=== PATIENT | female | born 1995 | race Caucasian/White ===

== ENCOUNTER 2016-12-14 22:30 | Emergency (ER) | payer OTHER ==
[2016-12-14 22:44] VITALS: BP 137/89; PULSE 81; RESP 20; TEMP 98.1
--- NOTE | 2016-12-14 23:01 | ED ---
ENT HPI - General Chief complaint: ENT Stated complaint: Right side face pain/with ear pain Time Seen by Provider: 12/14/16 22:51 Source: patient, RN notes reviewed Mode of arrival: ambulatory Limitations: no limitations - History of Present Illness Initial comments: 21-year-old female presents to the emergency department the chief complaint of right ear pain. Patient has been having right ear pain that radiates into the right sinus for the past 2 days. She states that she has had a lot of facial pressure as well. She has had some bloody noses associated with this as well. There is been no fever chills she denies any neck pain. She denies any cough cold runny nose. She states that she just continued to have discomfort so she thought that she should be evaluated.Patient denies any recent fever, chills, shortness of breath, chest pain, back pain, abdominal pain, nausea vomiting, numbness or tingling, dysuria or hematuria, constipation or diarrhea, headaches or visual changes, or any other current symptoms. - Related Data Home Medications Medication Instructions Recorded Confirmed Insulin Aspart (For Pump) [NovoLOG 1 dose SQ-PUMP CONTINUOUS MDD PTS 06/03/16 (For Pump)] MOM UNSURE OF BASAL RATE. Ibuprofen [Motrin] 800 mg PO DIRECTED PRN 07/19/16 12/14/16 Insulin Aspart (For Pump) [NovoLOG 1 dose SQ-PUMP PC-TID PRN 07/19/16 12/14/16 (For Pump)] Previous Rx's Medication Instructions Recorded Amoxicillin 500 mg PO Q8H #21 capsule 12/14/16 Allergies Allergy/AdvReac Type Severity Reaction Status Date / Time Fish Containing Products Allergy Unknown Rash/Hives, Verified 12/14/16 22:44 Swelling insulin glargine, human Allergy Unknown Burning Verified 12/14/16 22:44 recombin. a Sensation [From Lantus] Throughout sulfamethoxazole Allergy Unknown Swelling, Verified 12/14/16 22:44 [From Bactrim] Nausea & Vomiting trimethoprim [From Bactrim] Allergy Unknown Swelling, Verified 12/14/16 22:44 Nausea & Vomiting latex AdvReac Unknown PT HAS Verified 12/14/16 22:44 STRONG FAMILY HX OF LATEX ALLERGY. Review of Systems ROS Statement: Those systems with pertinent positive or pertinent negative responses have been documented in the HPI. ROS Other: All systems not noted in ROS Statement are negative. Past Medical History Past Medical History: Diabetes Mellitus, GERD/Reflux Additional Past Medical History / Comment(s): DIABETIC FOR 10 YEARS., INSULIN PUMP. , PAIN DUE TO GALL BLADDER., TOLD MOTHER THAT PATIENT SHOULD NOT TAKE TYLENOL ABOVE RECOMMENDED DOSE THAT IT COULD CAUSE LIVER DAMAGE-MOTHER STATES THAT SHE TOLD TREMAINE THIS. History of Any Multi-Drug Resistant Organisms: None Reported Past Surgical History: Cholecystectomy Additional Past Anesthesia/Blood Transfusion Reaction / Comment(s): PT HAS NEVER RECEIVED ANESTHESIA. Past Psychological History: No Psychological Hx Reported Smoking Status: Never smoker Past Alcohol Use History: Rare Past Drug Use History: Marijuana - Past Family History Mother Family Medical History: No Reported History General Exam - General Exam Comments Initial Comments: General exam: Alert, active, comfortable in no apparent distress Head: Normocephalic Eyes: Normal reaction of pupils, equal size, normal range of extraocular motion Ears: normal external ear canals, pink tympanic membranes with normal cone of light on the left, patient does appear to have erythematous right tympanic membrane. Nose: clear with pink turbinates Throat: no erythema or exudates with normal sized tonsils Neck: no masses, no nuchal rigidity Chest: no chest wall deformity Lungs: No respiratory distress CVS: Normal sinus rhythm Spine: no scoliosis or deformity Skin: no rashes Neurological: No focal deficits, tone is normal in all 4 extremities Limitations: no limitations Course Vital Signs 12/14/16 22:42 Temperature 98.1 F Pulse Rate 81 Respiratory 20 Rate Blood Pressure 137/89 O2 Sat by Pulse 98 Oximetry Medical Decision Making - Medical Decision Making 21-year-old female presents to the presenting otitis media. This we will start patient on antibiotics. We discussed follow-up with her doctor and return parameters stated he understood the plan. They will be discharged home. Disposition Clinical Impression: Right otitis media Disposition: HOME SELF-CARE Condition: Stable Instructions: Otitis Media (ED) Additional Instructions: Please use medication as discussed. Please follow up with family doctor if symptoms have not improved over the next two days. Please return to the emergency room if your symptoms increase or worsen or for any other concerns. Prescriptions: Amoxicillin 500 mg PO Q8H #21 capsule Referrals: Phong Cruz MD [Primary Care Provider] - 1-2 days Time of Disposition: 23:00
== END 2016-12-14 23:10 | disposition home or self-care (01) ==
LOC: EC 22:30
DX: H66.91 Otitis media, unspecified, right ear (principal); R51 Headache; E11.9 Type 2 diabetes mellitus without complications; Z79.4 Long term (current) use of insulin
CPT/HCPCS: 99282

== ENCOUNTER 2017-03-14 02:06 | Emergency (ER) | payer OTHER ==
[2017-03-14 02:11] VITALS: RESP 18
[2017-03-14] MEDS ORDERED: METOCLOPRAMIDE 5 MG/ML 2 ML VIAL IVP STA (02:28)
[2017-03-14] MEDS ORDERED: diphenhydrAMINE 50 MG/ML 1 ML VIAL IVP STA (02:28)
[2017-03-14] MEDS ORDERED: SODIUM CHLORIDE 0.9% 1,000 ML IV ONE (02:28)
[2017-03-14 03:08] LABS: ALT 24 U/L (9-52); AST 13 U/L (14-36); Alkaline Phosphatase 100 U/L (38-126); Anion Gap 11 mmol/L; Blood Urea Nitrogen 10 mg/dL (7-17); Calcium 9.5 mg/dL (8.4-10.2); Carbon Dioxide 28 mmol/L (22-30); Chloride 102 mmol/L (98-107); Glucose 103 mg/dL (74-99); Non-African American GFR(MDRD) >60 (>60 ml/min/1.73 sqM); Potassium 3.8 mmol/L (3.5-5.1); Sodium 141 mmol/L (137-145); Total Bilirubin 0.4 mg/dL (0.2-1.3); Total Protein 7.1 g/dL (6.3-8.2)
[2017-03-14 03:20] LABS: Basophils # (A) 0.1 k/uL (0-0.2); Basophils % (A) 1 %; CH 28.7; Eosinophils # (A) 0.2 k/uL (0-0.7); Eosinophils % (A) 2 %; HCT 38.1 % (34.0-46.0); HGB 12.8 gm/dL (11.4-16.0); Luc # (Auto) 0.13; Luc % (Auto) 1; Lymphocytes # (A) 3.1 k/uL (1.0-4.8); Lymphocytes % (A) 28 %; MCH 28.6 pg (25.0-35.0); MCHC 33.7 g/dL (31.0-37.0); Mean Platelet Volume 8.1; Monocytes # (A) 0.6 k/uL (0-1.0); Monocytes % (A) 5 %; Neutrophils # (A) 7.1 k/uL (1.3-7.7); Neutrophils % (A) 64 %; RBC 4.48 m/uL (3.80-5.40); RDW 13.5 % (11.5-15.5); WBC 11.1 k/uL (3.8-10.6)
--- NOTE | 2017-03-14 03:28 | ED ---
Headache HPI - General Source: RN notes reviewed Mode of arrival: ambulatory Limitations: no limitations <Beth Monique - Last Filed: 03/14/17 04:11> <Braydon Vera - Last Filed: 03/14/17 04:49> - General Chief Complaint: Headache Stated Complaint: Migraine X9 days Time Seen by Provider: 03/14/17 02:18 - History of Present Illness Initial Comments: Patient is a 21-year-old female presents to the emergency room for evaluation of headache. Patient states that a migraine headache for the past 9 days. Patient states she's been taking Excedrin and Advil with no relief of symptoms. Patient states she's having a 7 out of 10 headache in her frontal lobe area and behind her eyes. Patient denies changes in vision. Patient denies neck pain. Patient fevers or chills. Patient states she's been nauseous. Patient also states she's vomited once. Patient denies pierced ages. Patient denies limb weakness or unilateral weakness. Patient denies abdominal pain. Patient denies dizziness. Patient denies ear pain. Patient denies ringing in ears. (Beth Monique) - Related Data Home Medications Medication Instructions Recorded Confirmed Insulin Aspart (For Pump) [NovoLOG 1 dose SQ-PUMP CONTINUOUS MDD PTS 06/03/16 (For Pump)] MOM UNSURE OF BASAL RATE. Ibuprofen [Motrin] 800 mg PO DIRECTED PRN 07/19/16 12/14/16 Insulin Aspart (For Pump) [NovoLOG 1 dose SQ-PUMP PC-TID PRN 07/19/16 12/14/16 (For Pump)] Previous Rx's Medication Instructions Recorded Amoxicillin 500 mg PO Q8H #21 capsule 12/14/16 Ibuprofen [Motrin] 600 mg PO Q6HR PRN #20 tab 12/14/16 Acetaminophen-Codeine 300-30mg 2 each PO Q6H PRN #15 tablet 03/14/17 [Tylenol #3] Cephalexin [Keflex] 500 mg PO QID #40 cap 03/14/17 Allergies Allergy/AdvReac Type Severity Reaction Status Date / Time Fish Containing Products Allergy Unknown Rash/Hives, Verified 03/14/17 02:11 Swelling insulin glargine, human Allergy Unknown Burning Verified 03/14/17 02:11 recombin. a Sensation [From Lantus] Throughout sulfamethoxazole Allergy Unknown Swelling, Verified 03/14/17 02:11 [From Bactrim] Nausea & Vomiting trimethoprim [From Bactrim] Allergy Unknown Swelling, Verified 03/14/17 02:11 Nausea & Vomiting latex AdvReac Unknown PT HAS Verified 03/14/17 02:11 STRONG FAMILY HX OF LATEX ALLERGY. Review of Systems ROS Other: All systems not noted in ROS Statement are negative. <Beth Monique - Last Filed: 03/14/17 04:11> ROS Other: All systems not noted in ROS Statement are negative. <Braydon Vera - Last Filed: 03/14/17 04:49> ROS Statement: Those systems with pertinent positive or pertinent negative responses have been documented in the HPI. Past Medical History Past Medical History: Diabetes Mellitus, GERD/Reflux Additional Past Medical History / Comment(s): DIABETIC FOR 10 YEARS., INSULIN PUMP. , PAIN DUE TO GALL BLADDER., TOLD MOTHER THAT PATIENT SHOULD NOT TAKE TYLENOL ABOVE RECOMMENDED DOSE THAT IT COULD CAUSE LIVER DAMAGE-MOTHER STATES THAT SHE TOLD TERMAINE THIS. History of Any Multi-Drug Resistant Organisms: None Reported Past Surgical History: Cholecystectomy Additional Past Anesthesia/Blood Transfusion Reaction / Comment(s): PT HAS NEVER RECEIVED ANESTHESIA. Past Psychological History: No Psychological Hx Reported Smoking Status: Never smoker Past Alcohol Use History: None Reported, Rare Past Drug Use History: None Reported, Marijuana - Past Family History Mother Family Medical History: No Reported History <Beth Monique - Last Filed: 03/14/17 04:11> General Exam Limitations: no limitations General appearance: alert, in no apparent distress Head exam: Present: atraumatic, normocephalic, normal inspection Eye exam: Present: normal appearance, PERRL, EOMI Pupils: Present: normal accommodation ENT exam: Present: normal exam, mucous membranes moist, TM's normal bilaterally Neck exam: Present: normal inspection, full ROM. Absent: tenderness, lymphadenopathy Respiratory exam: Present: normal lung sounds bilaterally. Absent: respiratory distress Extremities exam: Present: normal inspection Back exam: Present: normal inspection Neurological exam: Present: alert, oriented X3, CN II-XII intact, normal gait Expanded Patient oriented to: Present: person, place, time Speech: Present: fluid speech Cranial nerves: EOM's Intact: Normal, Facial Sensation: Normal Sensory exam: Upper Extremity Light Touch: Normal, Lower Extremity Light Touch: Normal Motor strength exam: RUE: 5, LUE: 5, RLE: 5, LLE: 5 Psychiatric exam: Present: normal affect, normal mood Skin exam: Present: warm, dry, intact, normal color. Absent: rash <Beth Monique - Last Filed: 03/14/17 04:11> <Braydon Vera - Last Filed: 03/14/17 04:49> - General Exam Comments Initial Comments: sitting in exam room, no acute distress. (Beth Monique) Medical Decision Making - Lab Data Result diagrams: 03/14/17 02:45 03/14/17 02:45 <Beth Monique - Last Filed: 03/14/17 04:11> - Lab Data Result diagrams: 03/14/17 02:45 03/14/17 02:45 - Radiology Data Radiology results: report reviewed (Computed tomography scan of the brain shows no acute process. There is evidence of sinus disease and the ethmoid and frontal on the right side.) <Braydon Vera - Last Filed: 03/14/17 04:49> - Medical Decision Making patient is a 21-year-old female presents to the emergency room for evaluation of headache. Urinalysis suspicious for urinary tract infection. Patient is ALLERGIC to sulfa. Patient was started on Macrobid. Urine culture pending. CT brain pending. Case discussed and passed on to Dr. Vera at 4:15 AM. (Beth Monique) Patient reevaluated and resting comfortably in bed. Patient states headache is tolerable at this time. Patient states headache started over a week ago. Gradual onset. Patient states only normally occasional headaches. Patient is comfortable with discharge home. Antibiotics will be changed from Macrobid to Keflex secondary to sinus disease. (Braydon Vera) - Lab Data Lab Results 03/14/17 03/14/17 03/14/17 Range/Units 02:45 02:45 02:45 WBC 11.1 H (3.8-10.6) k/uL RBC 4.48 (3.80-5.40) m/uL Hgb 12.8 (11.4-16.0) gm/dL Hct 38.1 (34.0-46.0) % MCV 85.0 (80.0-100.0) fL MCH 28.6 (25.0-35.0) pg MCHC 33.7 (31.0-37.0) g/dL RDW 13.5 (11.5-15.5) % Plt Count 340 (150-450) k/uL Neutrophils % 64 % Lymphocytes % 28 % Monocytes % 5 % Eosinophils % 2 % Basophils % 1 % Neutrophils # 7.1 (1.3-7.7) k/uL Lymphocytes # 3.1 (1.0-4.8) k/uL Monocytes # 0.6 (0-1.0) k/uL Eosinophils # 0.2 (0-0.7) k/uL Basophils # 0.1 (0-0.2) k/uL Sodium 141 (137-145) mmol/L Potassium 3.8 (3.5-5.1) mmol/L Chloride 102 (98-107) mmol/L Carbon Dioxide 28 (22-30) mmol/L Anion Gap 11 mmol/L BUN 10 (7-17) mg/dL Creatinine 0.50 L (0.52-1.04) mg/dL Est GFR (MDRD) Af Amer >60 (>60 ml/min/1.73 sqM) Est GFR (MDRD) Non-Af >60 (>60 ml/min/1.73 sqM) Glucose 103 H (74-99) mg/dL Calcium 9.5 (8.4-10.2) mg/dL Total Bilirubin 0.4 (0.2-1.3) mg/dL AST 13 L (14-36) U/L ALT 24 (9-52) U/L Alkaline Phosphatase 100 (38-126) U/L Total Protein 7.1 (6.3-8.2) g/dL Albumin 3.9 (3.5-5.0) g/dL Urine Color Light Yellow Urine Appearance Cloudy H (Clear) Urine pH 5.5 (5.0-8.0) Ur Specific [place] 1.022 (1.001-1.035) Urine Protein Trace H (Negative) Urine Glucose (UA) 4+ H (Negative) Urine Ketones Negative (Negative) Urine Blood Moderate H (Negative) Urine Nitrite Positive H (Negative) Urine Bilirubin Negative (Negative) Urine Urobilinogen <2.0 (<2.0) mg/dL Ur Leukocyte Esterase Large H (Negative) Urine RBC 14 H (0-5) /hpf Urine WBC 74 H (0-5) /hpf Urine WBC Clumps Few H (None) /hpf Ur Squamous Epith Cells 7 H (0-4) /hpf Urine Bacteria Many H (None) /hpf Urine Mucus Rare H (None) /hpf Urine HCG, Qual (Not Detectd) 03/14/17 Range/Units 02:45 WBC (3.8-10.6) k/uL RBC (3.80-5.40) m/uL Hgb (11.4-16.0) gm/dL Hct (34.0-46.0) % MCV (80.0-100.0) fL MCH (25.0-35.0) pg MCHC (31.0-37.0) g/dL RDW (11.5-15.5) % Plt Count (150-450) k/uL Neutrophils % % Lymphocytes % % Monocytes % % Eosinophils % % Basophils % % Neutrophils # (1.3-7.7) k/uL Lymphocytes # (1.0-4.8) k/uL Monocytes # (0-1.0) k/uL Eosinophils # (0-0.7) k/uL Basophils # (0-0.2) k/uL Sodium (137-145) mmol/L Potassium (3.5-5.1) mmol/L Chloride (98-107) mmol/L Carbon Dioxide (22-30) mmol/L Anion Gap mmol/L BUN (7-17) mg/dL Creatinine (0.52-1.04) mg/dL Est GFR (MDRD) Af Amer (>60 ml/min/1.73 sqM) Est GFR (MDRD) Non-Af (>60 ml/min/1.73 sqM) Glucose (74-99) mg/dL Calcium (8.4-10.2) mg/dL Total Bilirubin (0.2-1.3) mg/dL AST (14-36) U/L ALT (9-52) U/L Alkaline Phosphatase (38-126) U/L Total Protein (6.3-8.2) g/dL Albumin (3.5-5.0) g/dL Urine Color Urine Appearance (Clear) Urine pH (5.0-8.0) Ur Specific [place] (1.001-1.035) Urine Protein (Negative) Urine Glucose (UA) (Negative) Urine Ketones (Negative) Urine Blood (Negative) Urine Nitrite (Negative) Urine Bilirubin (Negative) Urine Urobilinogen (<2.0) mg/dL Ur Leukocyte Esterase (Negative) Urine RBC (0-5) /hpf Urine WBC (0-5) /hpf Urine WBC Clumps (None) /hpf Ur Squamous Epith Cells (0-4) /hpf Urine Bacteria (None) /hpf Urine Mucus (None) /hpf Urine HCG, Qual Not Detected (Not Detectd) Disposition <Beth Monique - Last Filed: 03/14/17 04:11> Time of Disposition: 04:49 <Braydon Vera - Last Filed: 03/14/17 04:49> Clinical Impression: Headache, Urinary tract infection, Sinusitis Disposition: HOME SELF-CARE Condition: Good Instructions: Urinary Tract Infection in Women (ED), Acute Headache (ED) Additional Instructions: Take antibiotics as directed. Please follow up with primary care provider in 1- 2 days. If any new symptom arises or symptoms worsen, return to ER as soon as possible. Prescriptions: Acetaminophen-Codeine 300-30mg [Tylenol #3] 2 each PO Q6H PRN #15 tablet PRN Reason: Pain Cephalexin [Keflex] 500 mg PO QID #40 cap Referrals: Phong Cruz MD [Primary Care Provider] - 1-2 days
[2017-03-14 03:30] LABS: Appearance,Urine Cloudy (Clear); Bacteria,Urine Many /hpf; Bilirubin,Urine Negative (Negative); Glucose,Urine (UA) 4+ (Negative); Ketones,Urine Negative (Negative); Leukocyte Esterase,Urine Large (Negative); Mucus,Urine Rare /hpf; Nitrite,Urine Positive (Negative); PH, Urine 5.5 (5.0-8.0); Particle Count 45322; Protein,Urine Trace (Negative); RBC,Urine 14 /hpf (0-5); Specific Gravity,Urine 1.022 (1.001-1.035); Squamous Epithelial Cell,Urine 7 /hpf (0-4); UA Billing (MACRO vs. MICRO) MICRO; Urobilinogen,Urine <2.0 mg/dL (<2.0); WBC,Urine 74 /hpf (0-5)
[2017-03-14] MEDS ORDERED: NITROFURANTOIN MONOHYD/M-CRYST 100 MG CAP PO STA (04:12)
[2017-03-14] MEDS ORDERED: KETOROLAC 30 MG/ML 1 ML VIAL IVP STA (04:20)
--- NOTE | 2017-03-14 04:27 | CT ---
EXAM: CT Head Without Intravenous Contrast CLINICAL HISTORY: Reason: Pain TECHNIQUE: Axial computed tomography images of the head/brain without intravenous contrast. DLP is 1054.20 mGy-cm. This CT exam was performed using one or more of the following dose reduction techniques: automated exposure control, adjustment of the mA and/or kV according to patient size, and/or use of iterative reconstruction technique. COMPARISON: No prior head CT. FINDINGS: Brain: No hemorrhage. No mass effect. Vaughn white junction preserved. Ventricles: Age appropriate Sinuses: Sinus disease with prominent opacification of anterior right ethmoid air cells and near complete opacification of right frontal sinus. Mastoid air cells: Well aerated IMPRESSION: No acute intracranial findings. Sinus disease with prominent opacification of anterior right ethmoid air cells and near complete opacification of right frontal sinus.
[2017-03-14 05:02] VITALS: BP 126/82; PULSE 98; TEMP 98.7
== END 2017-03-14 05:01 | disposition home or self-care (01) ==
LOC: EC 02:06
DX: J32.8 Other chronic sinusitis (principal); N39.0 Urinary tract infection, site not specified; E11.9 Type 2 diabetes mellitus without complications; Z86.69 Personal history of other diseases of the nervous system and sense organs; Z96.41 Presence of insulin pump (external) (internal); Z88.1 Allergy status to other antibiotic agents; Z88.2 Allergy status to sulfonamides; Z88.8 Allergy status to other drugs, medicaments and biological substances; Z91.013 Allergy to seafood; Z91.040 Latex allergy status; Z79.4 Long term (current) use of insulin
CPT/HCPCS: 99284; 96374; 96375 ×2; 96361 ×2; 36415; 80053; 85025; 81001; 81025; 87086; 87077; 87186; 70450; J1200; J2765; J1885

== ENCOUNTER → 2017-03-26 | Outpatient (CLI) | payer OTHER ==
--- NOTE | 2017-03-26 12:20 | XR ---
Left ankle HISTORY: Trauma and pain 3 views of the left ankle Correlation to prior exam 02/24/2016 No significant interval change. Bone mineralization, joint spaces and alignment are maintained. No si zable joint effusion. IMPRESSION: No fracture or dislocation. Proximal fifth metatarsal was not well seen on the images sub mitted.
== END | disposition home or self-care (01) ==
LOC: RADXRMAIN 11:10
PROVIDERS: ATTEND Nurse Practitioner Gerontology
DX: M25.579 Pain in unspecified ankle and joints of unspecified foot (principal)

== ENCOUNTER 2017-11-02 18:15 | Outpatient (CLI) | payer OTHER ==
[2017-11-02 18:55] VITALS: TEMP 97.7
[2017-11-02 19:20] LABS: Appearance,Urine Clear (Clear); Bacteria,Urine Rare /hpf; Bilirubin,Urine Negative (Negative); Blood,Urine Small (Negative); Color,Urine Yellow; Glucose,Urine (UA) 4+ (Negative); Ketones,Urine Negative (Negative); Leukocyte Esterase,Urine Small (Negative); Nitrite,Urine Negative (Negative); Protein,Urine Trace (Negative); RBC,Urine 16 /hpf (0-5); Specific Gravity,Urine 1.024 (1.001-1.035); Squamous Epithelial Cell,Urine 2 /hpf (0-4); Urobilinogen,Urine <2.0 mg/dL (<2.0); WBC,Urine 26 /hpf (0-5)
[2017-11-02 19:21] LABS: Basophils % (A) 0 %; Eosinophils # (A) 0.1 k/uL (0-0.7); Eosinophils % (A) 1 %; HCT 33.7 % (34.0-46.0); HGB 11.7 gm/dL (11.4-16.0); Lymphocytes # (A) 2.1 k/uL (1.0-4.8); Lymphocytes % (A) 18 %; MCH 28.9 pg (25.0-35.0); MCHC 34.8 g/dL (31.0-37.0); MCV 83.2 fL (80.0-100.0); Mean Platelet Volume 8.3; Monocytes # (A) 0.5 k/uL (0-1.0); Monocytes % (A) 4 %; Neutrophils # (A) 8.6 k/uL (1.3-7.7); Neutrophils % (A) 75 %; Platelet Count 268 k/uL (150-450); RBC 4.05 m/uL (3.80-5.40); WBC 11.4 k/uL (3.8-10.6)
[2017-11-02 19:24] VITALS: PULSE 98; RESP 18
[2017-11-02 19:29] LABS: ALT 22 U/L (9-52); AST 15 U/L (14-36); Blood Urea Nitrogen 10 mg/dL (7-17); LDH 372 U/L (313-618); Uric Acid 4.1 mg/dL (3.7-7.4)
[2017-11-02 19:48] LABS: Glucose,Whole Blood 336 mg/dL (75-99)
[2017-11-02] MEDS ORDERED: CEPHALEXIN 500 MG CAP PO STA (19:54)
[2017-11-02 20:32] VITALS: BP 121/75
--- NOTE | 2017-11-04 16:39 | P.MSEPDOC ---
Presenting Problems - Arrival Data Date of Arrival on Unit: 11/02/17 Time of Arrival on Unit: 18:15 Mode of Transport: Ambulatory - Complaint OB-Reason for Admission/Chief Complaint: Pain Comment: pt here DOM with c/o right hip pain after moving boxes yesterday, rates pain 6/10 and reports increase in pain with activity, blood pressure was elevated on first check at 145/83 swapped cuff to larger cuff and reading was 150/78, ten minutes later reading was 137/80, pt denies issues with bps, pt is type 1 diabetic with insulin pump, also reports taking baby ASA and vitamin, pt has very limited care and needs to call to set up second appt with doctor through [facility] Medical History - Information : 2 Para: 1 Term: 1 : 0 Abortions: Spontaneous or Elective: 0 Number of Living Children: 1 - Gestational Age Gestational Age by DENIS (wks/days): 25 Weeks and 3 Days Review of Systems - Review of Systems Constitutional: No problems Breast: No problems ENT: No problems Cardiovascular: No problems Respiratory: No problems Gastrointestinal: No problems Genitourinary: No problems Musculoskeletal: No problems Neurological: No problems Skin: No problems Vital Signs - Temperature Temperature: 97.7 F Temperature Source: Temporal Artery Scan - Pulse Right Brachial Pulse Rate: 98 Pulse Assessment Method: Automatic Cuff - Respirations Respiratory Rate: 18 Oxygen Delivery Method: Room Air - Blood Pressure Right Arm Blood Pressure: 121/75 Blood Pressure Mean: 90 Blood Pressure Source: Automatic Cuff Medical Screen Scoring (Pre) - Cervical Exam Dilation: Exam Deferred Effacement: Exam Deferred Membranes: Intact - Uterine Contractions Frequency: N/A Duration: N/A Intensity: N/A - Maternal Vital Signs Maternal Temperature: N/A Signs of Preeclampsia: N/A Maternal Respirations: N/A - Pain Assessment Pain Location and Character: Right, Hip Pain Scale Used: Numeric (1 - 10) Pain Intensity: 6 Pain Management Goal: 4 Pain Description: *Acute, Aching, Throbbing Pain Radiation Location: none Pain Frequency: Frequent Pain Duration: 1 Pain Duration Units: Days Pain Behavior: None Exhibited Pain Aggravating Factors: Activity Non-Pharmacological Interventions: Darkened Room, Position/Reposition - Maternal Trauma Maternal Trauma: N/A - Assessment Baseline FHR: 155 - Total Score Total Score (Pre): 0 - Level of Risk Level of Risk: Low (0-5) Physician Notification (Pre) - Physician Notified Physician Notified Date: 11/02/17 Physician Notified Time: 18:40 Physician/Practitioner Notifed:: Dr Yen Spoke With: Dr Yen New Order Received: Yes (labs ordered) Medical Screen Scoring (Post) - Cervical Exam Dilation: Exam Deferred Effacement: Exam Deferred Membranes: Intact - Uterine Contractions Frequency: N/A Duration: N/A Intensity: N/A - Maternal Vital Signs Maternal Temperature: N/A Maternal Blood Pressure: N/A Signs of Preeclampsia: N/A Maternal Respirations: N/A - Pain Assessment Pain Scale Used: Numeric (1 - 10) Pain Intensity: 1 - Total Score Total Score (Post): 0 Physician Notification (Post) - Physician Notified Physician Notified Date: 11/02/17 Physician Notified Time: 19:50 Physician/Practitioner Notified:: Dr. Yen Spoke With: Dr. Yen New Order Received: Yes - Notification Comment Comment: send order for urine culture, give one dose of keflex 500 po now, she will call script into [facility] that pt can pick up driver tomorrow morning, discharge home and call for appt with OB this week in [place] Disposition - Disposition OB Disposition: Discharge to home, Written follow up instructions reviewed Discharge Date: 11/02/17 Discharge Time: 20:20 I agree with the RN Medical Screening Exam: Yes Risk & Benefit of care provided described in d/c instruction: Yes Diagnosis: PAIN, UNSPECIFIED
== END 2017-11-02 20:20 | disposition home or self-care (01) ==
LOC: FBPOP 18:15
PROVIDERS: ATTEND Obstetrics & Gynecology Obstetrics
DX: O99.89 Other specified diseases and conditions complicating pregnancy, childbirth and the puerperium (principal); M25.551 Pain in right hip; Z3A.25 25 weeks gestation of pregnancy
CPT/HCPCS: 82565; 83615; 84450; 84460; 84520; 84550; 85025; 81001; 87086; G0463; 99215

== ENCOUNTER 2018-02-23 22:53 | Emergency (ER) | payer OTHER ==
--- NOTE | 2018-02-24 00:13 | ED ---
Skin/Abscess/FB HPI - General Chief complaint: Skin/Abscess/Foreign Body Stated complaint: breast lump and pain Time Seen by Provider: 02/24/18 00:05 Source: patient, RN notes reviewed Mode of arrival: ambulatory Limitations: no limitations - History of Present Illness Initial comments: This is a 22-year-old female who presents to the emergency department with chief complaint of painful breast lump. Patient states that she is two months . She states that for the past week she has noticed a hard, painful lump in her left breast. She states that she's been trying to pump but is not getting any milk out of it. She states that she leave the lump did grow slightly over the week past week. She denies any purulent drainage, redness or warmth. Denies any fevers or chills. Denies chest pain or shortness of breath , abdominal pain, nausea or vomiting. - Related Data Home Medications Medication Instructions Recorded Confirmed Insulin Aspart (For Pump) [NovoLOG 1 dose SQ-PUMP CONTINUOUS MDD PTS 06/03/16 (For Pump)] MOM UNSURE OF BASAL RATE. Insulin Aspart (For Pump) [NovoLOG 1 dose SQ-PUMP PC-TID PRN 07/19/16 11/02/17 (For Pump)] Allergies Allergy/AdvReac Type Severity Reaction Status Date / Time Fish Containing Products Allergy Unknown Rash/Hives, Verified 02/23/18 23:20 Swelling insulin glargine, human Allergy Unknown Burning Verified 02/23/18 23:20 recombin. a Sensation [From Lantus] Throughout sulfamethoxazole Allergy Unknown Swelling, Verified 02/23/18 23:20 [From Bactrim] Nausea & Vomiting trimethoprim [From Bactrim] Allergy Unknown Swelling, Verified 02/23/18 23:20 Nausea & Vomiting latex AdvReac Unknown PT HAS Verified 02/23/18 23:20 STRONG FAMILY HX OF LATEX ALLERGY. Review of Systems ROS Statement: Those systems with pertinent positive or pertinent negative responses have been documented in the HPI. ROS Other: All systems not noted in ROS Statement are negative. Past Medical History Past Medical History: Diabetes Mellitus, GERD/Reflux Additional Past Medical History / Comment(s): DIABETIC FOR 10 YEARS., INSULIN PUMP. pre-eclampsi History of Any Multi-Drug Resistant Organisms: None Reported Past Surgical History: Section, Cholecystectomy Additional Past Anesthesia/Blood Transfusion Reaction / Comment(s): PT HAS NEVER RECEIVED ANESTHESIA. Past Psychological History: No Psychological Hx Reported Smoking Status: Never smoker Past Alcohol Use History: None Reported Past Drug Use History: None Reported - Past Family History Mother Family Medical History: No Reported History General Exam - General Exam Comments Initial Comments: General: Awake and alert, well-developed; in no apparent distress. HEENT: Head atraumatic, normocephalic. Pupils are equal, round and reactive to light. Extraocular movements intact. Oropharynx moist without erythema or exudate. Neck: Supple. Normal ROM. Cardiovascular/Chest: Regular rate and rhythm. No murmurs, rubs or gallops. Chest symmetrical. There is a firm, mobile, tender mass approximately 3 cm in diameter at approximately 1:00 in relation to the left areola. No erythema or warmth noted. Respiratory: Lungs clear to auscultation bilaterally. No wheezes, rales or rhonchi. Normal respiratory effort with no use of accessory muscles. Musculoskeletal: Normal ROM, no tenderness bilateral upper and lower extremities. Ambulating normally. Skin: [place], warm and dry without rashes or lesions. Neurological: Alert and oriented x3. CN II-XII grossly intact. Speech is fluent and answers are appropriate. No focal neuro deficits. Psychiatric: Normal mood and affect. No overt signs of depression or anxiety noted. Limitations: no limitations Course Vital Signs 02/23/18 02/24/18 23:16 00:42 Temperature 98.5 F 98.6 F Pulse Rate 111 H 90 Respiratory 18 16 Rate Blood Pressure 131/95 123/67 O2 Sat by Pulse 100 97 Oximetry Medical Decision Making - Medical Decision Making This is a 22-year-old female who presents to the emergency department with chief complaint of tender breast lump. Patient is 2 months . For the past week she has not been getting any milk out of the left breast. There is a firm, mobile, tender lump in the left breast. Patient likely suffering from a clogged duct. Recommended warm compresses, warm showers, massages and to continue pumping and breast-feeding. Vital signs are stable and patient is in no acute distress. She is to follow-up with her [employer] [facility]. She is in agreement with plan and voices understanding. She will be discharged home at this time. All questions answered. Disposition Clinical Impression: Clogged duct, Disposition: HOME SELF-CARE Condition: Good Instructions: and Plugged Ducts (ED) Additional Instructions: Please apply warm compresses, continue massages and continue breast-feeding and pumping. Please follow up with [facility]. Please follow up with primary care provider within 1-2 days. Return to emergency department if symptoms should worsen or any concerns arise. Is patient prescribed a controlled substance at d/c from ED?: No Referrals: Phong Cruz MD [Primary Care Provider] - 1-2 days Time of Disposition: 00:46
[2018-02-24 00:44] VITALS: BP 123/67; PULSE 90; RESP 16; TEMP 98.6
== END 2018-02-24 01:05 | disposition home or self-care (01) ==
LOC: EC 22:53
DX: N64.89 Other specified disorders of breast (principal); E11.9 Type 2 diabetes mellitus without complications; Z79.4 Long term (current) use of insulin; Z91.013 Allergy to seafood; Z88.8 Allergy status to other drugs, medicaments and biological substances; Z88.2 Allergy status to sulfonamides; Z91.040 Latex allergy status
CPT/HCPCS: 99283

== ENCOUNTER 2018-03-09 00:21 | Inpatient (IN) | payer OTHER ==
--- NOTE | 2018-03-09 01:06 | ED ---
General Adult HPI - General Chief complaint: Skin/Abscess/Foreign Body Stated complaint: revisit- lump on breast Time Seen by Provider: 03/09/18 01:00 Source: patient, RN notes reviewed Mode of arrival: ambulatory Limitations: no limitations - History of Present Illness Initial comments: 22-year-old female presents to the emergency department for a chief complaint of left breast pain x 3 weeks. Patient is about 2 months . Patient states she was seen here 2 weeks ago for the same thing and was told to apply warm compresses. Patient states this made it worse. Patient is no longer breast-feeding. Patient denies any fevers or chills at home. Patient states the lump seems to be getting bigger. 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 - Related Data Home Medications Medication Instructions Recorded Confirmed Insulin Aspart (For Pump) [NovoLOG 1 dose SQ-PUMP CONTINUOUS MDD PTS 06/03/16 (For Pump)] MOM UNSURE OF BASAL RATE. Insulin Aspart (For Pump) [NovoLOG 1 dose SQ-PUMP PC-TID PRN 07/19/16 03/09/18 (For Pump)] Allergies Allergy/AdvReac Type Severity Reaction Status Date / Time Fish Containing Products Allergy Unknown Rash/Hives, Verified 03/09/18 00:34 Swelling insulin glargine, human Allergy Unknown Burning Verified 03/09/18 00:34 recombin. a Sensation [From Lantus] Throughout sulfamethoxazole Allergy Unknown Swelling, Verified 03/09/18 00:34 [From Bactrim] Nausea & Vomiting trimethoprim [From Bactrim] Allergy Unknown Swelling, Verified 03/09/18 00:34 Nausea & Vomiting latex AdvReac Unknown PT HAS Verified 03/09/18 00:34 STRONG FAMILY HX OF LATEX ALLERGY. Review of Systems ROS Statement: Those systems with pertinent positive or pertinent negative responses have been documented in the HPI. ROS Other: All systems not noted in ROS Statement are negative. Past Medical History Past Medical History: Diabetes Mellitus, GERD/Reflux Additional Past Medical History / Comment(s): DIABETIC FOR 10 YEARS., INSULIN PUMP. pre-eclampsi History of Any Multi-Drug Resistant Organisms: None Reported Past Surgical History: Section, Cholecystectomy Additional Past Anesthesia/Blood Transfusion Reaction / Comment(s): PT HAS NEVER RECEIVED ANESTHESIA. Past Psychological History: No Psychological Hx Reported Smoking Status: Never smoker Past Alcohol Use History: None Reported Past Drug Use History: None Reported - Past Family History Mother Family Medical History: No Reported History General Exam - General Exam Comments Initial Comments: Patient has a area of 6 cm x 5 cm area of induration on the left breast with surrounding erythema. Tenderness with palpation to this. Limitations: no limitations General appearance: alert, in no apparent distress Head exam: Present: atraumatic, normocephalic, normal inspection Eye exam: Present: normal appearance. Absent: scleral icterus, conjunctival injection ENT exam: Present: normal exam Neck exam: Present: normal inspection, full ROM. Absent: tenderness, meningismus, lymphadenopathy Respiratory exam: Present: normal lung sounds bilaterally. Absent: respiratory distress, wheezes, rales, rhonchi, stridor Cardiovascular Exam: Present: regular rate, normal rhythm, normal heart sounds. Absent: systolic murmur, diastolic murmur, rubs, gallop, clicks Course Vital Signs 03/09/18 00:33 Temperature 98.4 F Pulse Rate 110 H Respiratory 20 Rate Blood Pressure 137/89 O2 Sat by Pulse 98 Oximetry Medical Decision Making - Medical Decision Making 22-year-old female with history of IDDM with chief complaint of breast pain 3 weeks. Patient recently x 2 months, no longer breast-feeding. Patient afebrile in the emergency department. However mildly tachycardic. Patient has an erythematous left breast on exam. There is an induration area of 6 cm x 5 cm possibly a breast abscess with surrounding cellulitis. With diabetic history, labs obtainted. CBC within normal limits without a white count. CMP shows a glucose of 625 as well as a plasma lactic acid of 5. Patient was given 2 L of fluid as well as Unasyn. She was given 15 u and started on sliding scale. She will be admitted for elevated plasma lactic acid levels, hyperglycemia, and infection of abscess in the breast. Surgery will be consulted as well. - Lab Data Result diagrams: 03/09/18 01:33 03/09/18 01:33 Lab Results 03/09/18 03/09/18 03/09/18 Range/Units 01:33 01:33 01:33 WBC 8.7 (3.8-10.6) k/uL RBC 4.30 (3.80-5.40) m/uL Hgb 12.3 (11.4-16.0) gm/dL Hct 38.0 (34.0-46.0) % MCV 88.3 (80.0-100.0) fL MCH 28.6 (25.0-35.0) pg MCHC 32.4 (31.0-37.0) g/dL RDW 12.9 (11.5-15.5) % Plt Count 313 (150-450) k/uL Neutrophils % 68 % Lymphocytes % 23 % Monocytes % 5 % Eosinophils % 2 % Basophils % 1 % Neutrophils # 5.9 (1.3-7.7) k/uL Lymphocytes # 2.0 (1.0-4.8) k/uL Monocytes # 0.4 (0-1.0) k/uL Eosinophils # 0.2 (0-0.7) k/uL Basophils # 0.1 (0-0.2) k/uL Hypochromasia Slight Sodium 135 L (137-145) mmol/L Potassium 4.1 (3.5-5.1) mmol/L Chloride 103 (98-107) mmol/L Carbon Dioxide 17 L (22-30) mmol/L Anion Gap 15 mmol/L BUN 12 (7-17) mg/dL Creatinine 1.00 (0.52-1.04) mg/dL Est GFR (CKD-EPI)AfAm >90 (>60 ml/min/1.73 sqM) Est GFR (CKD-EPI)NonAf 80 (>60 ml/min/1.73 sqM) Glucose 625 H* (74-99) mg/dL Plasma Lactic Acid Mark 5.0 H* (0.7-2.0) mmol/L Calcium 9.0 (8.4-10.2) mg/dL Total Bilirubin 0.2 (0.2-1.3) mg/dL AST 19 (14-36) U/L ALT 22 (9-52) U/L Alkaline Phosphatase 145 H (38-126) U/L Total Protein 6.5 (6.3-8.2) g/dL Albumin 3.4 L (3.5-5.0) g/dL Disposition Clinical Impression: Breast abscess Disposition: ADMITTED IP TO THIS HOSP Is patient prescribed a controlled substance at d/c from ED?: No Referrals: Phong Cruz MD [Primary Care Provider] - 1-2 days Time of Disposition: 02:57
[2018-03-09] MEDS ORDERED: AMPICILLIN-SULBACTAM 3 GM in SODIUM CHLORIDE 0.9% 100 ML IVPB STA (01:40)
[2018-03-09 01:58] LABS: ALT 22 U/L (9-52); AST 19 U/L (14-36); Albumin 3.4 g/dL (3.5-5.0); Alkaline Phosphatase 145 U/L (38-126); Anion Gap 15 mmol/L; Blood Urea Nitrogen 12 mg/dL (7-17); Carbon Dioxide 17 mmol/L (22-30); Chloride 103 mmol/L (98-107); Potassium 4.1 mmol/L (3.5-5.1); Sodium 135 mmol/L (137-145); Total Bilirubin 0.2 mg/dL (0.2-1.3); Total Protein 6.5 g/dL (6.3-8.2)
[2018-03-09 02:02] LABS: Basophils # (A) 0.1 k/uL (0-0.2); Basophils % (A) 1 %; Eosinophils # (A) 0.2 k/uL (0-0.7); Eosinophils % (A) 2 %; HGB 12.3 gm/dL (11.4-16.0); Hypochromasia Slight; Lymphocytes % (A) 23 %; MCH 28.6 pg (25.0-35.0); MCHC 32.4 g/dL (31.0-37.0); MCV 88.3 fL (80.0-100.0); Mean Platelet Volume 8.5; Monocytes # (A) 0.4 k/uL (0-1.0); Monocytes % (A) 5 %; Neutrophils # (A) 5.9 k/uL (1.3-7.7); Neutrophils % (A) 68 %; Platelet Count 313 k/uL (150-450); RDW 12.9 % (11.5-15.5); WBC 8.7 k/uL (3.8-10.6)
[2018-03-09 02:35] LABS: Glucose 625 mg/dL (74-99)
[2018-03-09] MEDS ORDERED: SODIUM CHLORIDE 0.9% 2,000 ML IV ONE (02:38)
[2018-03-09] MEDS ORDERED: INSULIN REGULAR 100 UNIT/ML VIAL SQ ONE (02:39)
[2018-03-09] MEDS ORDERED: NALOXONE 0.4 MG/ML 1 ML VIAL IV PRN (02:44)
[2018-03-09] MEDS ORDERED: INSULIN REGULAR 100 UNIT/ML VIAL IV ONE (04:00)
[2018-03-09 05:48] LABS: Glucose,Whole Blood 211 mg/dL (75-99)
[2018-03-09] MEDS ORDERED: INSULIN ASPART 100 UNIT/ML 1 ML 10 ML VIAL SQ SCH (07:30)
[2018-03-09 09:14] VITALS: BMI 31.3
[2018-03-09] MEDS: SODIUM CHLORIDE 0.9% 1,000 ML IV SCH ×4 (09:15→21:35)
[2018-03-09] MEDS ORDERED: INSULIN ASPART 100 UNIT/ML 1 ML 10 ML VIAL SQ PRN (09:26)
[2018-03-09] MEDS ORDERED: INSULIN PUMP BASAL RATES 1 EACH MISC MISCELLANE PRN (09:26)
[2018-03-09] MEDS ORDERED: AMPICILLIN-SULBACTAM 3 GM in SODIUM CHLORIDE 0.9% 100 ML IVPB SCH (10:00)
[2018-03-09] MEDS ORDERED: INSULIN PUMP ACTIVE INSULIN 1 EACH MISC MISCELLANE PRN (10:56)
[2018-03-09] MEDS ORDERED: INSULIN PUMP TARGET GLUCOSE 1 EACH MISC MISCELLANE PRN (10:56)
[2018-03-09 12:21] LABS: Glucose,Whole Blood 253 mg/dL (75-99)
[2018-03-09] MEDS: KETOROLAC 30 MG/ML 1 ML VIAL IVP PRN (12:40)
--- NOTE | 2018-03-09 14:01 | USB ---
Reason for exam: clinical finding. US Breast LT Left complete breast ultrasound includes all four quadrants, the retroareolar region and axilla. Finding demonstrates a 6.3 x 3.6 x 5.6cm irregular, hypoechoic lesion at 2 o'clock, heterogeneous collection compatible with breast abscess. Reactive borderline sized 1.2cm lymph node in the axilla with 6mm thickened cortex. These results were verbally communicated with the patient and result sheet given to the patient on 03/09/18. ASSESSMENT: Probably benign, BI-RAD 3 RECOMMENDATION: Surgical consultation of the left breast. (for management of abscess) Ultrasound of the left breast in 3 months.
[2018-03-09] MEDS ORDERED: TEMAZEPAM 15 MG CAP PO PRN (14:09)
[2018-03-09] MEDS ORDERED: ALPRAZolam 0.25 MG TAB PO PRN (14:09)
[2018-03-09] MEDS: INSULIN PUMP MEAL BOLUS 1 UNIT MISC MISCELLANE SCH ×3 (14:31→21:31)
[2018-03-09 15:29] LABS: Hemoglobin A1C 12.9 % (4.0-6.0)
[2018-03-09] MEDS ORDERED: VANCOMYCIN IV PER PHARMACY 1 EACH MISC MISCELLANE PRN (16:16)
--- NOTE | 2018-03-09 16:24 | P.GSCN ---
History of Present Illness Consult date: 03/09/18 Reason for Consult: Left breast abscess History of present illness: This a 22-year-old female has developed a tender mass left breast over the last 2 weeks. The breast has developed a mass at the 2 o'clock position of her nipple. She'll also performed which showed a 6 x 3 cm possible abscess. Past Medical History Past Medical History: Diabetes Mellitus, GERD/Reflux Additional Past Medical History / Comment(s): DIABETIC FOR 10 YEARS., INSULIN PUMP. pre-eclampsia with History of Any Multi-Drug Resistant Organisms: None Reported Past Surgical History: Section, Cholecystectomy Past Anesthesia/Blood Transfusion Reactions: No Reported Reaction Additional Past Anesthesia/Blood Transfusion Reaction / Comm: PT HAS NEVER RECEIVED ANESTHESIA. Past Psychological History: No Psychological Hx Reported Smoking Status: Never smoker Past Alcohol Use History: None Reported Past Drug Use History: None Reported - Past Family History Mother Family Medical History: No Reported History Medications and Allergies Home Medications Medication Instructions Recorded Confirmed Type Insulin Aspart (For Pump) [NovoLOG 1 dose SQ-PUMP CONTINUOUS MDD PTS 06/03/16 History (For Pump)] MOM UNSURE OF BASAL RATE. Allergies Allergy/AdvReac Type Severity Reaction Status Date / Time Fish Containing Products Allergy Unknown Rash/Hives, Verified 03/09/18 08:48 Swelling insulin glargine, human Allergy Unknown Burning Verified 03/09/18 08:48 recombin. a Sensation [From Lantus] Throughout sulfamethoxazole Allergy Unknown Swelling, Verified 03/09/18 08:48 [From Bactrim] Nausea & Vomiting trimethoprim [From Bactrim] Allergy Unknown Swelling, Verified 03/09/18 08:48 Nausea & Vomiting latex AdvReac Unknown PT HAS Verified 03/09/18 08:48 STRONG FAMILY HX OF LATEX ALLERGY. Surgical - Exam Vital Signs Temp Pulse Resp BP Pulse Ox 98.4 F 110 H 20 137/89 98 03/09/18 00:33 03/09/18 00:33 03/09/18 00:33 03/09/18 00:33 03/09/18 00:33 - General well developed, no distress - Eyes PERRL - ENT normal pinna - Neck no masses - Respiratory normal expansion - Cardiovascular Rhythm: regular - Abdomen Abdomen: soft, non tender - Integumentary 4 cm mass in left breast 2 o'clock position suggestive of an abscess. Results - Labs 03/09/18 01:33 03/09/18 01:33 Abnormal Lab Results - Last 24 Hours (Table) 03/09/18 03/09/18 03/09/18 Range/Units 01:33 01:33 05:46 Sodium 135 L (137-145) mmol/L Carbon Dioxide 17 L (22-30) mmol/L Glucose 625 H* (74-99) mg/dL POC Glucose (mg/dL) 211 H (75-99) mg/dL Plasma Lactic Acid Mark 5.0 H* (0.7-2.0) mmol/L Alkaline Phosphatase 145 H (38-126) U/L Albumin 3.4 L (3.5-5.0) g/dL 03/09/18 03/09/18 Range/Units 05:49 12:15 Sodium (137-145) mmol/L Carbon Dioxide (22-30) mmol/L Glucose (74-99) mg/dL POC Glucose (mg/dL) 253 H (75-99) mg/dL Plasma Lactic Acid Mark 2.2 H* (0.7-2.0) mmol/L Alkaline Phosphatase (38-126) U/L Albumin (3.5-5.0) g/dL Diabetes panel 03/09/18 Range/Units 01:33 Sodium 135 L (137-145) mmol/L Potassium 4.1 (3.5-5.1) mmol/L Chloride 103 (98-107) mmol/L Carbon Dioxide 17 L (22-30) mmol/L BUN 12 (7-17) mg/dL Creatinine 1.00 (0.52-1.04) mg/dL Glucose 625 H* (74-99) mg/dL Calcium 9.0 (8.4-10.2) mg/dL AST 19 (14-36) U/L ALT 22 (9-52) U/L Alkaline Phosphatase 145 H (38-126) U/L Total Protein 6.5 (6.3-8.2) g/dL Albumin 3.4 L (3.5-5.0) g/dL Calcium panel 03/09/18 Range/Units 01:33 Calcium 9.0 (8.4-10.2) mg/dL Albumin 3.4 L (3.5-5.0) g/dL Pituitary panel 03/09/18 Range/Units 01:33 Sodium 135 L (137-145) mmol/L Potassium 4.1 (3.5-5.1) mmol/L Chloride 103 (98-107) mmol/L Carbon Dioxide 17 L (22-30) mmol/L BUN 12 (7-17) mg/dL Creatinine 1.00 (0.52-1.04) mg/dL Glucose 625 H* (74-99) mg/dL Calcium 9.0 (8.4-10.2) mg/dL Adrenal panel 03/09/18 Range/Units 01:33 Sodium 135 L (137-145) mmol/L Potassium 4.1 (3.5-5.1) mmol/L Chloride 103 (98-107) mmol/L Carbon Dioxide 17 L (22-30) mmol/L BUN 12 (7-17) mg/dL Creatinine 1.00 (0.52-1.04) mg/dL Glucose 625 H* (74-99) mg/dL Calcium 9.0 (8.4-10.2) mg/dL Total Bilirubin 0.2 (0.2-1.3) mg/dL AST 19 (14-36) U/L ALT 22 (9-52) U/L Alkaline Phosphatase 145 H (38-126) U/L Total Protein 6.5 (6.3-8.2) g/dL Albumin 3.4 L (3.5-5.0) g/dL Assessment and Plan Assessment: Left breast abscess. We'll perform incision and drainage in the a.m.
[2018-03-09] MEDS ORDERED: cefTRIAXone 2,000 MG in SODIUM CHLORIDE 0.9% 100 ML IVPB SCH (16:30)
[2018-03-09] MEDS: cefTRIAXone IN SWFI 2,000 MG/20 ML SYRINGE IVP SCH (16:45)
[2018-03-09] MEDS ORDERED: VANCOMYCIN 1,750 MG in SODIUM CHLORIDE 0.9% 500 ML IVPB ONE (17:00)
--- NOTE | 2018-03-09 17:02 | HP ---
HISTORY AND PHYSICAL DATE OF SERVICE: 03/09/2018 CHIEF COMPLAINT: Lump in the breast and pain. HISTORY OF PRESENT ILLNESS: This 22-year-old woman with past medical history of diabetes, GERD, insulin pump , being followed by Dr. Cruz in the outpatient setting was noted to have a lump in the breast for about 2 weeks. The patient apparently stopped her child who was 2- months-old a few days before about 3 days ago. The lump was getting bigger. There was no obvious discharge from the nipple and the patient came to [facility]. Patient admitted for possible breast abscess. There is no history of fever, rigors. No history of headache, loss of consciousness or seizures at this time. PAST MEDICAL HISTORY: Diabetes type 1, GERD, insulin pump, section, recent delivery. MEDICATIONS: Prior to admission home medications are insulin pump. ALLERGIES: FISH CONTAINING PRODUCTS, LANTUS INSULIN, BACTRIM AND LATEX. FAMILY HISTORY: No history of heart disease or strokes in the family. SOCIAL HISTORY: No history of smoking. No history of alcohol. REVIEW OF SYSTEMS: ENT: No diminished hearing or vision. CARDIOVASCULAR: No angina or palpitations. RESPIRATION: No cough or hemoptysis. GI: No nausea or vomiting. : No dysuria or hematuria. NERVOUS SYSTEM: No numbness or weakness. ALLERGY/IMMUNOLOGY: No asthma or hayfever. MUSCULOSKELETAL as mentioned earlier. HEMATOLOGY/ONCOLOGY: No history of anemia. ENDOCRINE: As mentioned earlier. CONSTITUTIONAL: As mentioned earlier. DERMATOLOGY: Negative. RHEUMATOLOGY: Negative. PSYCHIATRY: As mentioned earlier. EXAM: GENERAL: The patient is alert and oriented times three. VITAL SIGNS: Pulse 99, blood pressure 123/77, respiration 16, temperature 98 degrees, pulse ox 98% on room air. HEENT: Conjunctivae normal. Oral mucosa moist. NECK is no jugular venous distention. No carotid bruit. No lymph node enlargement. CARDIOVASCULAR: S1 and S2. No S3, no S4. RESPIRATORY: Breath sounds diminished in the bases. No rhonchi. No crackles. ABDOMEN: Soft, nontender. No mass palpable. LEGS: No edema and no swelling. NERVOUS SYSTEM: Higher functions as mentioned earlier. Moves all four extremities. No focal motor or sensory deficits. Examination of the left breast showed hard tender mass with no obvious discharge, not much fluctuation appreciated, mostly in the left outer quadrant. LABS: WBC 8.2, hemoglobin 12.3, glucose 625, and ketones negative, plasma lactic acid 5. ASSESSMENT: 1. Acute left breast abscess. 2. Diabetes type 1 uncontrolled. 3. History of recent delivery. 4. Hyponatremia. 5. Gastroesophageal reflux disease. 6. History of cholecystectomy. 7. History of section. RECOMMENDATIONS AND DISCUSSION: In this 22-year-old woman who presented with multiple complex medical issues, we will monitor the patient closely, continue the current medications, management and symptomatic treatment. The patient was started on Unasyn. I would recommend a surgical and infectious disease evaluation. Otherwise, I recommend continue insulin pump. Monitor blood sugars closely. Accu-Cheks a.c. and q.h.s. IV fluids. DVT prophylaxis. Pain medications. Guarded prognosis because of multiple complex medical issues and further recommendations to follow. See orders for details. A copy of dictation being forwarded to Dr. Martinez who is the primary physician. I would also recommend obtain ultrasound of the breast. We will repeat cultures. Further recommendations to follow. MMODL / IJN: [id number] / MTDD
[2018-03-09 17:04] LABS: Glucose,Whole Blood 325 mg/dL (75-99)
--- NOTE | 2018-03-09 20:43 | P.CONS ---
History of Present Illness - Reason for Consult Consult date: 03/09/18 - Chief Complaint pain left breast - History of Present Illness 22-year-old female who is currently 3 months relates was doing well at first, breast-feeding was going modestly well. However around February 18 she started having difficulties with her left breast with pain and swelling to the outer cephalad quadrant of the breast. She did eventually come to the emergency center was thought to have a blocked milk duct warmth and ongoing feeding was suggested. Despite warm compresses and attempts to continue to feed the baby was breast-feeding she became considerably worse. Apparently was unable to be seen by her metal alloy scientist and consequently presented to the emergency center. At that time she was complaining of significant pain and swelling of the breast with erythema and low-grade fever and chills. Was not clear if she had a fever at home. Because of the pain she stopped breast- feeding the baby, and subsequently she relates that her milk production has stopped. Despite this the left breast remains very painful and she has become ill as above. Upon arrival to the emergency center there was evidence of the painful swollen left breast erythema and evidence for blood sugar greater than 600. The patient is a type I diabetic and relates that she has been struggling with her blood sugars over the last few weeks with a swollen painful breast. She's had difficulty with her blood sugars in the past but this is quite extreme for her Review of Systems HEENT:Denies headache or acute visual change. Denies sinus or mouth discomforts. Denies neck stiffness or pain. Denies significant oral cavity pain. Denies difficulty on swallowing. Lungs: Denies significant shortness of breath, cough, sputum production, or hemoptysis. Cardiovascular: Denies significant shortness of breath, chest pain, chest wall pain, orthopnea, dyspnea on exertion, syncope Gastrointestinal:Denies nausea, vomiting, diarrhea, constipation, hematemesis, melena, hematochezia. No no significant change of bowel habit noticed. Musculoskeletal: denies significant myalgias or arthralgias. No new joint swelling. Denies new back pain. Skin: As per the HPI painful left breast Neuro: Denies headache or visual change. Denies any new onset weakness or difficulty with ambulation. Denies falls or seizures. Psychiatric:Denies anxiety or depression. Endocrine: Fatigue blood sugars out of control weight is stable Past Medical History Past Medical History: Diabetes Mellitus, GERD/Reflux Additional Past Medical History / Comment(s): DIABETIC FOR 10 YEARS., INSULIN PUMP. pre-eclampsia with History of Any Multi-Drug Resistant Organisms: None Reported Past Surgical History: Section, Cholecystectomy Past Anesthesia/Blood Transfusion Reactions: No Reported Reaction Additional Past Anesthesia/Blood Transfusion Reaction / Comm: PT HAS NEVER RECEIVED ANESTHESIA. Past Psychological History: No Psychological Hx Reported Additional Psychological History / Comment(s): Single. Lives with mother and sister, they're caring for the baby while she is in hospital. No animals in the home. Does not work outside of the home. Denies utilization of tobacco, alcohol or recreational drugs. No experience. No international travel Smoking Status: Never smoker Past Alcohol Use History: None Reported Past Drug Use History: None Reported - Past Family History Mother Family Medical History: No Reported History Medications and Allergies Home Medications and Allergies Comment(s): Current Medications Hydrocodone Bitart/Acetaminophen ([place] 5-325) 1 each PO Q6HR PRN PRN Reason: MODERATE Pain Alprazolam (Xanax) 0.25 mg PO TID PRN PRN Reason: Anxiety Ceftriaxone Sodium (Rocephin) 2,000 mg IVP Q24HR [facility] Last Admin: 03/09/18 16:45 Dose: 2,000 mg Heparin Sodium (Porcine) (Heparin) 5,000 unit SQ Q12HR [facility] Sodium Chloride (Saline 0.9%) 1,000 mls @ 75 mls/hr IV .[id number] [facility] Last Admin: 03/09/18 14:31 Dose: Not Given Vancomycin HCl 1,500 mg/ (Sodium Chloride) 250 mls @ 125 mls/hr IVPB Q12H [facility] Insulin Aspart (Novolog) 0 unit SQ DAILY PRN PRN Reason: Insulin Pump Replacement Ketorolac Tromethamine (Toradol) 30 mg IVP Q6HR PRN PRN Reason: MILD Pain Stop: 03/13/18 12:21 Last Admin: 03/09/18 12:40 Dose: 30 mg Miscellaneous Information (Insulin Pump Basal Rates) 1 each MISCELLANE Q6HR PRN ; Protocol PRN Reason: Blood Sugar - High Miscellaneous Information (Insulin Pump Correction Bolus) 0 unit MISCELLANE ACHS PRN; Protocol PRN Reason: Blood Sugar - High Miscellaneous Information (Insulin Pump Meal Bolus) 0 unit MISCELLANE ACHS PRASHANT ; Protocol Last Admin: 03/09/18 19:18 Dose: 10.1 unit Miscellaneous Information (Insulin Pump Active Insulin) 1 each MISCELLANE ACHS PRN; Protocol PRN Reason: Blood Sugar - High Miscellaneous Information (Insulin Pump Target Glucose) 1 each MISCELLANE ACHS PRN; Protocol PRN Reason: Blood Sugar - High Morphine Sulfate (Morphine Sulfate (Inj)) 2 mg IVP Q4HR PRN PRN Reason: SEVERE Pain Naloxone HCl (Narcan) 0.2 mg IV Q2M PRN PRN Reason: Opioid Reversal Pantoprazole Sodium (Protonix) 40 mg PO AC-BRKFST PRASHANT Temazepam (Restoril) 15 mg PO HS PRN PRN Reason: Insomnia Home Medications Medication Instructions Recorded Confirmed Type Insulin Aspart (For Pump) [NovoLOG 1 dose SQ-PUMP CONTINUOUS MDD PTS 06/03/16 History (For Pump)] MOM UNSURE OF BASAL RATE. Allergies Allergy/AdvReac Type Severity Reaction Status Date / Time Fish Containing Products Allergy Unknown Rash/Hives, Verified 03/09/18 08:48 Swelling insulin glargine, human Allergy Unknown Burning Verified 03/09/18 08:48 recombin. a Sensation [From Lantus] Throughout sulfamethoxazole Allergy Unknown Swelling, Verified 03/09/18 08:48 [From Bactrim] Nausea & Vomiting trimethoprim [From Bactrim] Allergy Unknown Swelling, Verified 03/09/18 08:48 Nausea & Vomiting latex AdvReac Unknown PT HAS Verified 03/09/18 08:48 STRONG FAMILY HX OF LATEX ALLERGY. Physical Exam Vitals: Vital Signs Temp Pulse Pulse Resp BP BP Pulse Ox 03/09/18 16:49 98.0 F 90 16 123/83 96 03/09/18 11:18 98.0 F 89 16 123/79 99 03/09/18 07:55 97.9 F 98 16 143/86 100 03/09/18 03:16 98.7 F 107 H 16 135/89 98 03/09/18 00:33 98.4 F 110 H 20 137/89 98 Intake and Output 03/09/18 03/09/18 03/09/18 06:59 14:59 22:59 Other: # Voids 2 Weight 90.718 kg 90.718 kg Pleasant 22-year-old woman who is in no hodan distress, but does complain of pain to the left breast. HEENT: Anicteric conjunctiva are pink and moist nasal mucosa grossly intact without significant lesions, there is no thrush. Neck: The neck is supple without significant lymphadenopathy or thyromegaly. Lungs: Good bilateral air entry without significant crackles or wheezing. There is no significant bronchial sounds. There is no egophony or dullness. Heart: Regular rate and rhythm with an audible S1-S2, no S3 no S4. There is no significant murmur click or rub, PMI was nondisplaced. Abdomen: Positive bowel sounds soft and nontender without palpable masses or organomegaly. There was no guarding or rebound. Extremities: The upper extremities have excellent pulses they are symmetric, no significant petechiae or telangiectasia. No splinter hemorrhages were noted. The lower extremities are free from significant edema. The peripheral pulses were 2+ and symmetric. Neuro: Awake alert oriented to person place and time. There are no acute new gross focal sensory motor deficits. Skin: With 2 nurses present the left breast is evaluated. There is evidence of the extensive swelling to the breast to the lateral cephalad quadrant. There is palpable firmness in this region and is exquisitely tender, there is distinct erythema over the breast and is notably swollen. There is scant left axillary lymphadenopathy that is not very tender. The right breast is without mass or tenderness. No other abnormal lymph nodes are seen. Results CBC & Chem 7: 03/09/18 01:33 03/09/18 01:33 Labs: Abnormal Lab Results - Last 24 Hours (Table) 03/09/18 03/09/18 03/09/18 Range/Units 01:33 01:33 05:46 Sodium 135 L (137-145) mmol/L Carbon Dioxide 17 L (22-30) mmol/L Glucose 625 H* (74-99) mg/dL POC Glucose (mg/dL) 211 H (75-99) mg/dL Plasma Lactic Acid Mark 5.0 H* (0.7-2.0) mmol/L Alkaline Phosphatase 145 H (38-126) U/L Albumin 3.4 L (3.5-5.0) g/dL 03/09/18 03/09/18 03/09/18 Range/Units 05:49 12:15 17:00 Sodium (137-145) mmol/L Carbon Dioxide (22-30) mmol/L Glucose (74-99) mg/dL POC Glucose (mg/dL) 253 H 325 H (75-99) mg/dL Plasma Lactic Acid Mark 2.2 H* (0.7-2.0) mmol/L Alkaline Phosphatase (38-126) U/L Albumin (3.5-5.0) g/dL Laboratory Results WBC 8.7 k/uL (3.8-10.6) 03/09/18 01:33 RBC 4.30 m/uL (3.80-5.40) 03/09/18 01:33 Hgb 12.3 gm/dL (11.4-16.0) 03/09/18 01:33 Hct 38.0 % (34.0-46.0) 03/09/18 01:33 MCV 88.3 fL (80.0-100.0) 03/09/18 01:33 MCH 28.6 pg (25.0-35.0) 03/09/18 01:33 MCHC 32.4 g/dL (31.0-37.0) 03/09/18 01:33 RDW 12.9 % (11.5-15.5) 03/09/18 01:33 Plt Count 313 k/uL (150-450) 03/09/18 01:33 Neutrophils % 68 % 03/09/18 01:33 Lymphocytes % 23 % 03/09/18 01:33 Monocytes % 5 % 03/09/18 01:33 Eosinophils % 2 % 03/09/18 01:33 Basophils % 1 % 03/09/18 01:33 Neutrophils # 5.9 k/uL (1.3-7.7) 03/09/18 01:33 Lymphocytes # 2.0 k/uL (1.0-4.8) 03/09/18 01:33 Monocytes # 0.4 k/uL (0-1.0) 03/09/18 01:33 Eosinophils # 0.2 k/uL (0-0.7) 03/09/18 01:33 Basophils # 0.1 k/uL (0-0.2) 03/09/18 01:33 Hypochromasia Slight 03/09/18 01:33 Sodium 135 mmol/L (137-145) L 03/09/18 01:33 Potassium 4.1 mmol/L (3.5-5.1) 03/09/18 01:33 Chloride 103 mmol/L (98-107) 03/09/18 01:33 Carbon Dioxide 17 mmol/L (22-30) L 03/09/18 01:33 Anion Gap 15 mmol/L 03/09/18 01:33 BUN 12 mg/dL (7-17) 03/09/18 01:33 Creatinine 1.00 mg/dL (0.52-1.04) 03/09/18 01:33 Est GFR (CKD-EPI)AfAm >90 (>60 ml/min/1.73 sqM) 03/09/18 01:33 Est GFR (CKD-EPI)NonAf 80 (>60 ml/min/1.73 sqM) 03/09/18 01:33 Glucose 625 mg/dL (74-99) H* 03/09/18 01:33 POC Glucose (mg/dL) 325 mg/dL (75-99) H 03/09/18 17:00 POC Glu Flower Cutter ID Gretchen Srivastava 03/09/18 17:00 Lactic Ac Sepsis Rflx Y 03/09/18 02:28 Plasma Lactic Acid Mark 2.2 mmol/L (0.7-2.0) H* 03/09/18 05:49 Calcium 9.0 mg/dL (8.4-10.2) 03/09/18 01:33 Total Bilirubin 0.2 mg/dL (0.2-1.3) 03/09/18 01:33 AST 19 U/L (14-36) 03/09/18 01:33 ALT 22 U/L (9-52) 03/09/18 01:33 Alkaline Phosphatase 145 U/L (38-126) H 03/09/18 01:33 Total Protein 6.5 g/dL (6.3-8.2) 03/09/18 01:33 Albumin 3.4 g/dL (3.5-5.0) L 03/09/18 01:33 Acetone, Qual Negative (Negative) 03/09/18 01:33 Assessment and Plan (1) Poorly controlled type 1 diabetes mellitus Current Visit: Yes Status: Acute Code(s): E10.65 - TYPE 1 DIABETES MELLITUS WITH HYPERGLYCEMIA SNOMED Code(s): 469663266 (2) Left breast abscess Narrative/Plan: 22-year-old female who has a history of diabetes mellitus type 1 who utilizes an insulin pump is having ongoing difficulties with her diabetes since the delivery. She has developed the increasing pain and swelling to the left breast and now has evidence of a greater than 6 cm abscess to the breast. Surgical consult has been requested and will likely undergo incision and drainage of the abscess tomorrow. She's been seen by the diabetes education team and they're working with her insulin pump settings to improve her sugars while she is in hospital. For antibiotic therapy given the history ceftriaxone and vancomycin have been requested to give coverage for gram-negative pathogens as well as for MRSA, she is at some risk for both given the history of diabetes in the elevated blood sugars. Cultures and the findings at surgery will help to find the course of antibiotics at discharge. Pain control seems to be improving with current Toradol. Multivitamin is added. As noted fortunately did not have DKA at admission. Current Visit: Yes Status: Acute Code(s): N61.1 - ABSCESS OF THE BREAST AND NIPPLE SNOMED Code(s): 57528890 (3) breast pain Current Visit: Yes Status: Acute Code(s): O92.29 - OTH DISORDERS OF BREAST ASSOC W AND THE PUERPERIUM SNOMED Code(s): 34542650
[2018-03-09 21:11] LABS: Glucose,Whole Blood 196 mg/dL (75-99)
[2018-03-09] MEDS: HEPARIN SODIUM,PORCINE 5,000 UNIT/ML 1 ML VIAL SQ SCH (21:29)
[2018-03-09] MEDS: HYDROcodone/APAP 5-325MG 1 EACH TAB PO PRN (21:33)
[2018-03-10 01:32] LABS: Glucose,Whole Blood 277 mg/dL (75-99)
[2018-03-10] MEDS ORDERED: VANCOMYCIN 1,500 MG in SODIUM CHLORIDE 0.9% 250 ML IVPB SCH (06:00)
[2018-03-10] MEDS: PANTOPRAZOLE 40 MG TABLET PO SCH (06:33)
[2018-03-10 06:36] LABS: Glucose,Whole Blood 310 mg/dL (75-99)
[2018-03-10] MEDS: INSULIN PUMP MEAL BOLUS 1 UNIT MISC MISCELLANE SCH ×4 (06:56→21:20)
[2018-03-10 07:03] LABS: Basophils % (A) 0 %; Eosinophils # (A) 0.2 k/uL (0-0.7); Eosinophils % (A) 2 %; HCT 33.7 % (34.0-46.0); HGB 10.7 gm/dL (11.4-16.0); Lymphocytes # (A) 2.2 k/uL (1.0-4.8); Lymphocytes % (A) 29 %; MCH 27.5 pg (25.0-35.0); MCHC 31.7 g/dL (31.0-37.0); MCV 86.6 fL (80.0-100.0); Mean Platelet Volume 8.5; Monocytes # (A) 0.5 k/uL (0-1.0); Monocytes % (A) 7 %; Neutrophils # (A) 4.6 k/uL (1.3-7.7); Neutrophils % (A) 61 %; Platelet Count 243 k/uL (150-450); RBC 3.89 m/uL (3.80-5.40); WBC 7.6 k/uL (3.8-10.6)
[2018-03-10 07:17] LABS: Anion Gap 7 mmol/L; Blood Urea Nitrogen 7 mg/dL (7-17); Calcium 8.3 mg/dL (8.4-10.2); Carbon Dioxide 20 mmol/L (22-30); Chloride 110 mmol/L (98-107); Glucose 320 mg/dL (74-99); Sodium 137 mmol/L (137-145)
[2018-03-10] MEDS: HEPARIN SODIUM,PORCINE 5,000 UNIT/ML 1 ML VIAL SQ SCH ×2 (08:38→21:20)
[2018-03-10] MEDS: cefTRIAXone IN SWFI 2,000 MG/20 ML SYRINGE IVP SCH (08:38)
[2018-03-10] MEDS: SODIUM CHLORIDE 0.9% 1,000 ML IV SCH (08:38)
[2018-03-10] MEDS ORDERED: IV FLUID CONTINUATION 1,000 ML IV ONE (09:38)
[2018-03-10 09:56] LABS: Glucose,Whole Blood 210 mg/dL (75-99)
[2018-03-10] MEDS ORDERED: ONDANSETRON 4 MG/2 ML VIAL IVP ONE (10:06)
[2018-03-10] MEDS ORDERED: MIDAZOLAM 2 MG/2 ML VIAL ONE ×2 (10:20)
[2018-03-10] MEDS ORDERED: LIDOCAINE 1% INJ 10MG/ML (20 ML MDV) ONE ×2 (10:20)
[2018-03-10] MEDS ORDERED: PROPOFOL 10 MG/ML 20 ML VIAL IV ONE ×2 (10:20)
[2018-03-10] MEDS ORDERED: fentaNYL (PF) 50 MCG/ML 2 ML AMP ONE ×2 (10:20)
[2018-03-10] MEDS ORDERED: HYDROmorphone (PF) 1 MG/ML ONE ×2 (10:20)
[2018-03-10] MEDS ORDERED: KETAMINE 10 MG/ML 20 ML VIAL ONE ×2 (10:20)
[2018-03-10] MEDS ORDERED: BUPIVACAIN-EPI 0.5%-1:200,000 30 ML VIAL SQ ONE (10:37)
--- NOTE | 2018-03-10 10:50 | P.OP ---
Date of Procedure: 03/10/18 Preoperative Diagnosis: Left breast abscess Postoperative Diagnosis: Left breast abscess Procedure(s) Performed: Incision and drainage of left breast abscess Anesthesia: MAC Surgeon: Vincent Sorensen Pathology: other (Culture of abscess) Condition: stable Disposition: PACU Description of Procedure: Patient's placed the operative table in supine position. She received IV sedation. Her left breast was prepped and draped usual sterile fashion. The patient had absence 2 o'clock position. The area was anesthetized 1% local Xylocaine. A skin incision was made at the outer edge of the complex. Purulent drainage was encountered. The abscess cavity was cultured. The wound was irrigated and then packed with Nu Gauze. Patient top she will was sent to recovery in stable condition.
[2018-03-10 11:20] LABS: Glucose,Whole Blood 216 mg/dL (75-99)
[2018-03-10] MEDS ORDERED: SODIUM CHLORIDE 0.9% 1,000 ML IV ONE (11:42)
[2018-03-10] MEDS: MULTIVITAMINS, THERA 1 EACH TAB PO SCH (12:02)
[2018-03-10] MEDS: MORPHINE SULFATE 2 MG/ML SYRINGE IVP PRN ×3 (12:08→21:25)
--- NOTE | 2018-03-10 13:06 | PN ---
PROGRESS NOTE DATE OF SERVICE: 03/10/2018 This 22-year-old woman was admitted with left breast abscess at site of incision, drainage with Dr. Sorensen. Purulent drainage was obtained. Patient is being evaluated for surgery by Infectious Disease. The final culture reports are pending at this time. The patient has a 2-month-old premature baby. No chest pain. No palpitations. No fever. PHYSICAL EXAM: Alert and oriented x3. Pulse is 97, blood pressure 130/64, respirations 16, temperature 97.8, pulse ox 98% room air. HEENT: Conjunctivae normal. NECK: No jugular venous distension. CARDIOVASCULAR: S1, S2, muffled. RESPIRATORY: Breath sounds diminished at the bases, no rhonchi, no crackles. Abdomen is soft, nontender. LEGS: No edema, nos welling. NERVOUS SYSTEM: No focal deficits. BREASTS: Status post incision and drainage. LABS: WBC 7.3, hemoglobin is 10.7, glucose is 320 and 216 and hemoglobin A1c is 12.9. ASSESSMENT: 1. Acute left breast abscess, status post incision and drainage. 2. Diabetes type 1, uncontrolled, on insulin pump. 3. History of recent delivery. 4. Hyponatremia. 5. Gastroesophageal reflux disease. 6. Cholecystectomy. 7. History of section. RECOMMENDATION: Recommend to continue current management and monitor blood pressures closely. Otherwise, guarded prognosis because of multiple complex medical issues and further recommendations to follow. CRISELDAL / BASSAM: [id number] /
[2018-03-10] MEDS: VANCOMYCIN 1,500 MG in SODIUM CHLORIDE 0.9% 250 ML IVPB SCH ×2 (16:21→23:28)
[2018-03-10 17:10] LABS: Glucose,Whole Blood 249 mg/dL (75-99)
--- NOTE | 2018-03-10 20:55 | P.PN ---
Subjective Progress Note Date: 03/10/18 22-year-old female who is currently 3 months relates was doing well at first, breast-feeding was going modestly well. However around February 18 she started having difficulties with her left breast with pain and swelling to the outer cephalad quadrant of the breast. She did eventually come to the emergency center was thought to have a blocked milk duct warmth and ongoing feeding was suggested. Despite warm compresses and attempts to continue to feed the baby was breast-feeding she became considerably worse. Apparently was unable to be seen by her drilling field operator and consequently presented to the emergency center. At that time she was complaining of significant pain and swelling of the breast with erythema and low-grade fever and chills. Was not clear if she had a fever at home. Because of the pain she stopped breast- feeding the baby, and subsequently she relates that her milk production has stopped. Despite this the left breast remains very painful and she has become ill as above. Upon arrival to the emergency center there was evidence of the painful swollen left breast erythema and evidence for blood sugar greater than 600. The patient is a type I diabetic and relates that she has been struggling with her blood sugars over the last few weeks with a swollen painful breast. She's had difficulty with her blood sugars in the past but this is quite extreme for her 03/10/2018 the patient is now status post surgery just returning from the operating room for incision and drainage of the left breast abscess. Objective - Vital Signs Vital signs: Vital Signs Temp 98.3 F 03/10/18 15:26 Pulse 100 03/10/18 15:26 Resp 20 03/10/18 15:26 BP 120/80 03/10/18 15:26 Pulse Ox 96 03/10/18 15:26 Intake & Output 03/10/18 03/10/18 03/11/18 06:59 18:59 06:59 Intake Total 240 400 Output Total 5 Balance 240 395 Weight 90.718 kg Intake: IV 400 Oral 240 Output: Estimated Blood Loss 5 Other: # Voids 1 - Exam Pleasant 22-year-old woman who is in no hodan distress, but does complain of pain to the left breast. HEENT: Anicteric conjunctiva are pink and moist nasal mucosa grossly intact without significant lesions, there is no thrush. Neck: The neck is supple without significant lymphadenopathy or thyromegaly. Lungs: Good bilateral air entry without significant crackles or wheezing. There is no significant bronchial sounds. There is no egophony or dullness. Heart: Regular rate and rhythm with an audible S1-S2, no S3 no S4. There is no significant murmur click or rub, PMI was nondisplaced. Abdomen: Positive bowel sounds soft and nontender without palpable masses or organomegaly. There was no guarding or rebound. Extremities: The upper extremities have excellent pulses they are symmetric, no significant petechiae or telangiectasia. No splinter hemorrhages were noted. The lower extremities are free from significant edema. The peripheral pulses were 2+ and symmetric. Neuro: Awake alert oriented to person place and time. There are no acute new gross focal sensory motor deficits. Skin: The patient is just postoperative. Surgical dressing is in place in the left breast. No other acute changes are noted. - Labs CBC & Chem 7: 03/10/18 06:47 03/10/18 06:47 Labs: Abnormal Lab Results - Last 24 Hours (Table) 03/09/18 03/09/18 03/10/18 Range/Units 01:33 21:02 01:31 Hgb (11.4-16.0) gm/dL Hct (34.0-46.0) % Chloride (98-107) mmol/L Carbon Dioxide (22-30) mmol/L Glucose (74-99) mg/dL POC Glucose (mg/dL) 196 H 277 H (75-99) mg/dL Hemoglobin A1c 12.9 H (4.0-6.0) % Calcium (8.4-10.2) mg/dL 03/10/18 03/10/18 03/10/18 Range/Units 06:35 06:47 06:47 Hgb 10.7 L (11.4-16.0) gm/dL Hct 33.7 L (34.0-46.0) % Chloride 110 H (98-107) mmol/L Carbon Dioxide 20 L (22-30) mmol/L Glucose 320 H (74-99) mg/dL POC Glucose (mg/dL) 310 H (75-99) mg/dL Hemoglobin A1c (4.0-6.0) % Calcium 8.3 L (8.4-10.2) mg/dL 03/10/18 03/10/18 03/10/18 Range/Units 09:48 11:16 17:05 Hgb (11.4-16.0) gm/dL Hct (34.0-46.0) % Chloride (98-107) mmol/L Carbon Dioxide (22-30) mmol/L Glucose (74-99) mg/dL POC Glucose (mg/dL) 210 H 216 H 249 H (75-99) mg/dL Hemoglobin A1c (4.0-6.0) % Calcium (8.4-10.2) mg/dL Microbiology - Last 24 Hours (Table) 03/09/18 01:33 Blood Culture - Preliminary Blood No Growth after 24 hours Laboratory Results WBC 7.6 k/uL (3.8-10.6) 03/10/18 06:47 RBC 3.89 m/uL (3.80-5.40) 03/10/18 06:47 Hgb 10.7 gm/dL (11.4-16.0) L 03/10/18 06:47 Hct 33.7 % (34.0-46.0) L 03/10/18 06:47 MCV 86.6 fL (80.0-100.0) 03/10/18 06:47 MCH 27.5 pg (25.0-35.0) 03/10/18 06:47 MCHC 31.7 g/dL (31.0-37.0) 03/10/18 06:47 RDW 13.0 % (11.5-15.5) 03/10/18 06:47 Plt Count 243 k/uL (150-450) 03/10/18 06:47 Neutrophils % 61 % 03/10/18 06:47 Lymphocytes % 29 % 03/10/18 06:47 Monocytes % 7 % 03/10/18 06:47 Eosinophils % 2 % 03/10/18 06:47 Basophils % 0 % 03/10/18 06:47 Neutrophils # 4.6 k/uL (1.3-7.7) 03/10/18 06:47 Lymphocytes # 2.2 k/uL (1.0-4.8) 03/10/18 06:47 Monocytes # 0.5 k/uL (0-1.0) 03/10/18 06:47 Eosinophils # 0.2 k/uL (0-0.7) 03/10/18 06:47 Basophils # 0.0 k/uL (0-0.2) 03/10/18 06:47 Hypochromasia Slight 03/09/18 01:33 Sodium 137 mmol/L (137-145) 03/10/18 06:47 Potassium 4.0 mmol/L (3.5-5.1) 03/10/18 06:47 Chloride 110 mmol/L (98-107) H 03/10/18 06:47 Carbon Dioxide 20 mmol/L (22-30) L 03/10/18 06:47 Anion Gap 7 mmol/L 03/10/18 06:47 BUN 7 mg/dL (7-17) 03/10/18 06:47 Creatinine 0.55 mg/dL (0.52-1.04) 03/10/18 06:47 Est GFR (CKD-EPI)AfAm >90 (>60 ml/min/1.73 sqM) 03/10/18 06:47 Est GFR (CKD-EPI)NonAf >90 (>60 ml/min/1.73 sqM) 03/10/18 06:47 Glucose 320 mg/dL (74-99) H 03/10/18 06:47 POC Glucose (mg/dL) 249 mg/dL (75-99) H 03/10/18 17:05 POC Glu [facility] Gretchen Srivastava 03/10/18 17:[address] Glu mg/dL 324 03/09/18 01:33 Hemoglobin A1c 12.9 % (4.0-6.0) H 03/09/18 01:33 Lactic Ac Sepsis Rflx Y 03/09/18 02:28 Plasma Lactic Acid Mark 2.2 mmol/L (0.7-2.0) H* 03/09/18 05:49 Calcium 8.3 mg/dL (8.4-10.2) L 03/10/18 06:47 Total Bilirubin 0.2 mg/dL (0.2-1.3) 03/09/18 01:33 AST 19 U/L (14-36) 03/09/18 01:33 ALT 22 U/L (9-52) 03/09/18 01:33 Alkaline Phosphatase 145 U/L (38-126) H 03/09/18 01:33 Total Protein 6.5 g/dL (6.3-8.2) 03/09/18 01:33 Albumin 3.4 g/dL (3.5-5.0) L 03/09/18 01:33 Urine HCG, Qual Not Detected (Not Detectd) 03/10/18 08:07 Acetone, Qual Negative (Negative) 03/09/18 01:33 Microbiology 03/09/18 01:33 Blood Blood Culture - Preliminary No Growth after 24 hours Assessment and Plan (1) Poorly controlled type 1 diabetes mellitus Current Visit: Yes Status: Acute Code(s): E10.65 - TYPE 1 DIABETES MELLITUS WITH HYPERGLYCEMIA SNOMED Code(s): 972565292 (2) Left breast abscess Narrative/Plan: 22-year-old female who has a history of diabetes mellitus type 1 who utilizes an insulin pump is having ongoing difficulties with her diabetes since the delivery. She has developed the increasing pain and swelling to the left breast and now has evidence of a greater than 6 cm abscess to the breast. Surgical consult has been requested and will likely undergo incision and drainage of the abscess tomorrow. She's been seen by the diabetes education team and they're working with her insulin pump settings to improve her sugars while she is in hospital. For antibiotic therapy given the history ceftriaxone and vancomycin have been requested to give coverage for gram-negative pathogens as well as for MRSA, she is at some risk for both given the history of diabetes in the elevated blood sugars. Cultures and the findings at surgery will help to find the course of antibiotics at discharge. Pain control seems to be improving with current Toradol. Multivitamin is added. As noted fortunately did not have DKA at admission. 03/10/2018 patient is just postoperative and is quite uncomfortable from the surgery. She denying further fevers chills or rigors. The breast is been packed. She will need home care the time of her discharge. She is trying to get home tomorrow to take her child to a appointment in [place]. She's been instructed by her primary care physician that she will not be ready for discharge tomorrow. Once cultures available within able to design the course of outpatient antibiotic therapy for treatment of this large breast abscess. Currently blood sugars are starting to improve and then pain she is feeling better. Current Visit: Yes Status: Acute Code(s): N61.1 - ABSCESS OF THE BREAST AND NIPPLE SNOMED Code(s): 91854020 (3) breast pain Current Visit: Yes Status: Acute Code(s): O92.29 - OTH DISORDERS OF BREAST ASSOC W AND THE PUERPERIUM SNOMED Code(s): 56549642
[2018-03-10 21:17] LABS: Glucose,Whole Blood 250 mg/dL (75-99)
[2018-03-11] MEDS ORDERED: VANCOMYCIN TROUGH DUE 1 EACH MISC MISCELLANE ONE (05:00)
[2018-03-11 05:48] LABS: Basophils % (A) 1 %; Eosinophils # (A) 0.1 k/uL (0-0.7); Eosinophils % (A) 1 %; HCT 35.2 % (34.0-46.0); HGB 10.8 gm/dL (11.4-16.0); Lymphocytes # (A) 1.8 k/uL (1.0-4.8); Lymphocytes % (A) 36 %; MCH 26.5 pg (25.0-35.0); MCHC 30.8 g/dL (31.0-37.0); MCV 86.1 fL (80.0-100.0); Mean Platelet Volume 8.1; Monocytes # (A) 0.2 k/uL (0-1.0); Monocytes % (A) 4 %; Neutrophils # (A) 2.8 k/uL (1.3-7.7); Neutrophils % (A) 56 %; Platelet Count 277 k/uL (150-450); RBC 4.09 m/uL (3.80-5.40); RDW 12.6 % (11.5-15.5); WBC 5.1 k/uL (3.8-10.6)
[2018-03-11] MEDS: HYDROcodone/APAP 5-325MG 1 EACH TAB PO PRN ×2 (05:58→13:14)
[2018-03-11] MEDS: VANCOMYCIN 1,500 MG in SODIUM CHLORIDE 0.9% 250 ML IVPB SCH ×3 (05:58→21:31)
[2018-03-11 06:03] LABS: Anion Gap 7 mmol/L; Blood Urea Nitrogen 4 mg/dL (7-17); Calcium 8.4 mg/dL (8.4-10.2); Carbon Dioxide 21 mmol/L (22-30); Chloride 109 mmol/L (98-107); Glucose 302 mg/dL (74-99); Potassium 4.1 mmol/L (3.5-5.1); Sodium 137 mmol/L (137-145)
[2018-03-11] MEDS: PANTOPRAZOLE 40 MG TABLET PO SCH (06:52)
[2018-03-11 06:56] LABS: Glucose,Whole Blood 301 mg/dL (75-99)
[2018-03-11] MEDS: INSULIN PUMP MEAL BOLUS 1 UNIT MISC MISCELLANE SCH ×4 (06:56→21:46)
[2018-03-11] MEDS: KETOROLAC 30 MG/ML 1 ML VIAL IVP PRN ×2 (06:57→14:20)
[2018-03-11] MEDS: SODIUM CHLORIDE 0.9% 1,000 ML IV SCH ×2 (07:00→18:33)
[2018-03-11] MEDS: cefTRIAXone IN SWFI 2,000 MG/20 ML SYRINGE IVP SCH (10:21)
[2018-03-11] MEDS: HEPARIN SODIUM,PORCINE 5,000 UNIT/ML 1 ML VIAL SQ SCH ×2 (10:22→21:02)
[2018-03-11 12:02] LABS: Glucose,Whole Blood 248 mg/dL (75-99)
[2018-03-11] MEDS: MULTIVITAMINS, THERA 1 EACH TAB PO SCH (13:14)
--- NOTE | 2018-03-11 15:14 | P.PN ---
Progress Note - Text Progress Note Date: 03/11/18 The patient resting comfortably her bed. She is having her dressing change performed in the nurses. On exam is lesser stable. Her left breast has decreased erythema. The patient's preliminary Gram stain shows gram-positive cocci and bacilli. Final cultures are not available a. Patient he received IV antibiotics and local wound care.
--- NOTE | 2018-03-11 15:28 | PN ---
PROGRESS NOTE DATE OF SERVICE: 03/11/2018 This 22-year-old woman was admitted with acute breast abscess also uncontrolled blood sugars with hemoglobin A1c more than 12. Patient's blood sugar has been adjusted by punch press operator helper in [facility]. No chest pain. No palpitations. No fever. The Infectious Disease evaluation is in progress. Final cultures are pending. Surgery has performed incision and drainage. PHYSICAL EXAM: Alert and oriented x3. Pulse is 98, blood pressure 125/86, respiratory 20, temperature 98.0, pulse ox 97% on room air. HEENT: Conjunctivae normal. NECK: No jugular venous distension. CARDIOVASCULAR: S1, S2, muffled. RESPIRATORY: Breath sounds diminished at the bases, no rhonchi, no crackles. ABDOMEN: Soft, nontender. LEGS: No edema, no swelling. NERVOUS SYSTEM: No focal deficits. Exam shows left breast, status post incision and drainage. ASSESSMENT: 1. Acute left breast abscess, status post incision and drainage. 2. Diabetes mellitus type 2, uncontrolled on insulin pump. 3. History of recent delivery. 4. Hyponatremia. 5. Gastroesophageal reflux disease. 6. History of cholecystectomy. 7. History of section. RECOMMENDATION: Recommend to continue with current management. Continue with broad-spectrum IV antibiotics as mentioned earlier. Otherwise, discussed with diabetic education with recommendations with the patient's own punch press operator helper and will continue to monitor. Follow closely with Surgery. Further recommendations to follow. Discussed the patient's DVT prophylaxis and see orders for details. MMODL / IJN: [id number] /
[2018-03-11] MEDS: INSPUCOR MISCELLANE PRN (17:24)
[2018-03-11 17:26] LABS: Glucose,Whole Blood 312 mg/dL (75-99)
[2018-03-11 21:37] LABS: Glucose,Whole Blood 153 mg/dL (75-99)
[2018-03-11] MEDS: MORPHINE SULFATE 2 MG/ML SYRINGE IVP PRN (21:38)
[2018-03-11] MEDS ORDERED: HYDROcodone/APAP 5-325MG 1 EACH TAB ONE (22:25)
[2018-03-12 03:43] LABS: Glucose,Whole Blood 280 mg/dL (75-99)
[2018-03-12 06:41] LABS: Basophils % (A) 1 %; Eosinophils # (A) 0.2 k/uL (0-0.7); Eosinophils % (A) 3 %; HCT 32.9 % (34.0-46.0); HGB 10.4 gm/dL (11.4-16.0); Lymphocytes # (A) 1.9 k/uL (1.0-4.8); Lymphocytes % (A) 37 %; MCH 27.1 pg (25.0-35.0); MCHC 31.6 g/dL (31.0-37.0); MCV 85.8 fL (80.0-100.0); Mean Platelet Volume 7.7; Monocytes # (A) 0.3 k/uL (0-1.0); Monocytes % (A) 5 %; Neutrophils # (A) 2.7 k/uL (1.3-7.7); Neutrophils % (A) 51 %; Platelet Count 256 k/uL (150-450); RBC 3.83 m/uL (3.80-5.40); RDW 12.6 % (11.5-15.5); WBC 5.2 k/uL (3.8-10.6)
[2018-03-12] MEDS: MORPHINE SULFATE 2 MG/ML SYRINGE IVP PRN ×2 (06:51→16:51)
[2018-03-12] MEDS: PANTOPRAZOLE 40 MG TABLET PO SCH (06:52)
[2018-03-12] MEDS: VANCOMYCIN 1,500 MG in SODIUM CHLORIDE 0.9% 250 ML IVPB SCH ×3 (06:56→22:37)
[2018-03-12 07:01] LABS: Glucose,Whole Blood 263 mg/dL (75-99)
[2018-03-12] MEDS: INSPUCOR MISCELLANE PRN ×4 (07:20→22:47)
[2018-03-12 07:30] LABS: Anion Gap 8 mmol/L; Blood Urea Nitrogen 5 mg/dL (7-17); Calcium 8.3 mg/dL (8.4-10.2); Carbon Dioxide 22 mmol/L (22-30); Chloride 108 mmol/L (98-107); Glucose 264 mg/dL (74-99); Potassium 3.8 mmol/L (3.5-5.1); Sodium 138 mmol/L (137-145)
[2018-03-12] MEDS: HEPARIN SODIUM,PORCINE 5,000 UNIT/ML 1 ML VIAL SQ SCH ×2 (08:38→20:32)
[2018-03-12] MEDS: cefTRIAXone IN SWFI 2,000 MG/20 ML SYRINGE IVP SCH ×2 (08:39→09:57)
[2018-03-12] MEDS: HYDROcodone/APAP 5-325MG 1 EACH TAB PO PRN ×3 (10:57→19:18)
[2018-03-12] MEDS: INSULIN PUMP MEAL BOLUS 1 UNIT MISC MISCELLANE SCH ×3 (11:10→22:48)
[2018-03-12 12:01] LABS: Glucose,Whole Blood 204 mg/dL (75-99)
[2018-03-12] MEDS: MULTIVITAMINS, THERA 1 EACH TAB PO SCH (13:37)
[2018-03-12] MEDS: SODIUM CHLORIDE 0.9% 1,000 ML IV SCH (15:09)
[2018-03-12 17:13] LABS: Glucose,Whole Blood 281 mg/dL (75-99)
[2018-03-12] MEDS ORDERED: MORPHINE ORAL SOLN 10 MG/5 ML CUP PO PRN (18:34)
--- NOTE | 2018-03-12 18:42 | PN ---
PROGRESS NOTE DATE OF SERVICE: 03/12/2018 This 22 -year-old woman admitted with left breast abscess underwent incision and drainage, presumptive Staph is grown from the cultures. No chest pain. No palpitations. No fever. PHYSICAL EXAM: Alert and oriented x3. Pulse is 92, blood pressure 120/82, respiration 18, temp 98.2, pulse ox 97% on room air. HEENT: Conjunctivae normal. Neck: No jugular venous distention. CARDIOVASCULAR: S1, S2 muffled. Respirations: Breath sounds diminished in the bases. No rhonchi and no crackles. ABDOMEN: Abdomen soft. Nontender. NERVOUS SYSTEM: No focal deficits. Examination of the left breast is status post surgery. LABS: WBC 5.8, hemoglobin 10.4, glucose 263. ASSESSMENT: 1. Acute left breast abscess status post incision and drainage with presumptive Staph, final cultures pending. 2. Diabetes type 1, uncontrolled on insulin pump. 3. History of recent delivery. 4. Hyperlipidemia. 5. History of gastroesophageal reflux disease. 6. History of cholecystectomy. 7. History of section. RECOMMENDATIONS AND DISCUSSION: Recommend to continue current medications, management and symptomatic treatment. Otherwise, monitor blood pressures closely. trying to be in touch with the patient's own executive chairman. Continue the antibiotics. Cultures noted. Closely follow with surgery. Infectious Disease. Further recommendations to follow. MMODL / IJN: [id number] / MTDD
[2018-03-12] MEDS: KETOROLAC 30 MG/ML 1 ML VIAL IVP PRN (22:36)
[2018-03-12 22:46] LABS: Glucose,Whole Blood 228 mg/dL (75-99)
--- NOTE | 2018-03-12 23:14 | P.PN ---
Subjective Progress Note Date: 03/12/18 22-year-old female who is currently 3 months relates was doing well at first, breast-feeding was going modestly well. However around February 18 she started having difficulties with her left breast with pain and swelling to the outer cephalad quadrant of the breast. She did eventually come to the emergency center was thought to have a blocked milk duct warmth and ongoing feeding was suggested. Despite warm compresses and attempts to continue to feed the baby was breast-feeding she became considerably worse. Apparently was unable to be seen by her telecommunications project manager and consequently presented to the emergency center. At that time she was complaining of significant pain and swelling of the breast with erythema and low-grade fever and chills. Was not clear if she had a fever at home. Because of the pain she stopped breast- feeding the baby, and subsequently she relates that her milk production has stopped. Despite this the left breast remains very painful and she has become ill as above. Upon arrival to the emergency center there was evidence of the painful swollen left breast erythema and evidence for blood sugar greater than 600. The patient is a type I diabetic and relates that she has been struggling with her blood sugars over the last few weeks with a swollen painful breast. She's had difficulty with her blood sugars in the past but this is quite extreme for her 03/10/2018 the patient is now status post surgery just returning from the operating room for incision and drainage of the left breast abscess. patient is showing further improvement now after surgery on 03/12/2018. Her pain is improving, not having fevers or chills. Blood sugars are showing improvem. Culture is in process and should be finalized by the morning. Objective - Vital Signs Vital signs: Vital Signs Temp 98.2 F 03/12/18 15:40 Pulse 91 03/12/18 15:40 Resp 18 03/12/18 15:40 BP 135/84 03/12/18 15:40 Pulse Ox 97 03/12/18 15:40 Intake & Output 03/12/18 03/12/18 03/13/18 06:59 18:59 06:59 Intake Total 240 Balance 240 Intake: Oral 240 Other: # Voids 1 - Exam Pleasant 22-year-old woman who is in no hodan distress, but does complain of pain to the left breast. HEENT: Anicteric conjunctiva are pink and moist nasal mucosa grossly intact without significant lesions, there is no thrush. Neck: The neck is supple without significant lymphadenopathy or thyromegaly. Lungs: Good bilateral air entry without significant crackles or wheezing. There is no significant bronchial sounds. There is no egophony or dullness. Heart: Regular rate and rhythm with an audible S1-S2, no S3 no S4. There is no significant murmur click or rub, PMI was nondisplaced. Abdomen: Positive bowel sounds soft and nontender without palpable masses or organomegaly. There was no guarding or rebound. Extremities: The upper extremities have excellent pulses they are symmetric, no significant petechiae or telangiectasia. No splinter hemorrhages were noted. The lower extremities are free from significant edema. The peripheral pulses were 2+ and symmetric. Neuro: Awake alert oriented to person place and time. There are no acute new gross focal sensory motor deficits. Skin: with the nurse present the left breast is evaluated showing evidenc of the skin of the breast, the extensive induration is almost . Tenderness to the breast is also . Scant bloody drainage is only noted - Labs CBC & Chem 7: 03/12/18 06:16 03/12/18 06:16 Labs: Abnormal Lab Results - Last 24 Hours (Table) 03/12/18 03/12/18 03/12/18 Range/Units 02:27 06:16 06:16 Hgb 10.4 L (11.4-16.0) gm/dL Hct 32.9 L (34.0-46.0) % Chloride 108 H (98-107) mmol/L BUN 5 L (7-17) mg/dL Creatinine 0.51 L (0.52-1.04) mg/dL Glucose 264 H (74-99) mg/dL POC Glucose (mg/dL) 280 H (75-99) mg/dL Calcium 8.3 L (8.4-10.2) mg/dL 03/12/18 03/12/18 03/12/18 Range/Units 06:57 11:59 17:11 Hgb (11.4-16.0) gm/dL Hct (34.0-46.0) % Chloride (98-107) mmol/L BUN (7-17) mg/dL Creatinine (0.52-1.04) mg/dL Glucose (74-99) mg/dL POC Glucose (mg/dL) 263 H 204 H 281 H (75-99) mg/dL Calcium (8.4-10.2) mg/dL 03/12/18 Range/Units 22:44 Hgb (11.4-16.0) gm/dL Hct (34.0-46.0) % Chloride (98-107) mmol/L BUN (7-17) mg/dL Creatinine (0.52-1.04) mg/dL Glucose (74-99) mg/dL POC Glucose (mg/dL) 228 H (75-99) mg/dL Calcium (8.4-10.2) mg/dL Microbiology - Last 24 Hours (Table) 03/10/18 10:46 Gram Stain - Final Breast - Left Wound Culture - Final Staphylococcus aureus 03/09/18 01:33 Blood Culture - Preliminary Blood No Growth after 72 hours Laboratory Results WBC 5.2 k/uL (3.8-10.6) 03/12/18 06:16 RBC 3.83 m/uL (3.80-5.40) 03/12/18 06:16 Hgb 10.4 gm/dL (11.4-16.0) L 03/12/18 06:16 Hct 32.9 % (34.0-46.0) L 03/12/18 06:16 MCV 85.8 fL (80.0-100.0) 03/12/18 06:16 MCH 27.1 pg (25.0-35.0) 03/12/18 06:16 MCHC 31.6 g/dL (31.0-37.0) 03/12/18 06:16 RDW 12.6 % (11.5-15.5) 03/12/18 06:16 Plt Count 256 k/uL (150-450) 03/12/18 06:16 Neutrophils % 51 % 03/12/18 06:16 Lymphocytes % 37 % 03/12/18 06:16 Monocytes % 5 % 03/12/18 06:16 Eosinophils % 3 % 03/12/18 06:16 Basophils % 1 % 03/12/18 06:16 Neutrophils # 2.7 k/uL (1.3-7.7) 03/12/18 06:16 Lymphocytes # 1.9 k/uL (1.0-4.8) 03/12/18 06:16 Monocytes # 0.3 k/uL (0-1.0) 03/12/18 06:16 Eosinophils # 0.2 k/uL (0-0.7) 03/12/18 06:16 Basophils # 0.0 k/uL (0-0.2) 03/12/18 06:16 Hypochromasia Slight 03/09/18 01:33 Sodium 138 mmol/L (137-145) 03/12/18 06:16 Potassium 3.8 mmol/L (3.5-5.1) 03/12/18 06:16 Chloride 108 mmol/L (98-107) H 03/12/18 06:16 Carbon Dioxide 22 mmol/L (22-30) 03/12/18 06:16 Anion Gap 8 mmol/L 03/12/18 06:16 BUN 5 mg/dL (7-17) L 03/12/18 06:16 Creatinine 0.51 mg/dL (0.52-1.04) L 03/12/18 06:16 Est GFR (CKD-EPI)AfAm >90 (>60 ml/min/1.73 sqM) 03/12/18 06:16 Est GFR (CKD-EPI)NonAf >90 (>60 ml/min/1.73 sqM) 03/12/18 06:16 Glucose 264 mg/dL (74-99) H 03/12/18 06:16 POC Glucose (mg/dL) 228 mg/dL (75-99) H 03/12/18 22:44 POC Glu Research Laboratory Technician AMBER Cele Barraza 03/12/18 22:[address] Glu mg/dL 324 03/09/18 01:33 Hemoglobin A1c 12.9 % (4.0-6.0) H 03/09/18 01:33 Lactic Ac Sepsis Rflx Y 03/09/18 02:28 Plasma Lactic Acid Mark 2.2 mmol/L (0.7-2.0) H* 03/09/18 05:49 Calcium 8.3 mg/dL (8.4-10.2) L 03/12/18 06:16 Total Bilirubin 0.2 mg/dL (0.2-1.3) 03/09/18 01:33 AST 19 U/L (14-36) 03/09/18 01:33 ALT 22 U/L (9-52) 03/09/18 01:33 Alkaline Phosphatase 145 U/L (38-126) H 03/09/18 01:33 Total Protein 6.5 g/dL (6.3-8.2) 03/09/18 01:33 Albumin 3.4 g/dL (3.5-5.0) L 03/09/18 01:33 Urine HCG, Qual Not Detected (Not Detectd) 03/10/18 08:07 Vancomycin Trough 19.2 ug/mL 03/11/18 05:27 Acetone, Qual Negative (Negative) 03/09/18 01:33 Microbiology 03/10/18 10:46 Breast - Left Gram Stain - Final 03/10/18 10:46 Breast - Left Wound Culture - Final Staphylococcus aureus 03/09/18 01:33 Blood Blood Culture - Preliminary No Growth after 72 hours 03/10/18 10:46 Breast - Left Anaerobic Culture - Preliminary Assessment and Plan (1) Poorly controlled type 1 diabetes mellitus Current Visit: Yes Status: Acute Code(s): E10.65 - TYPE 1 DIABETES MELLITUS WITH HYPERGLYCEMIA SNOMED Code(s): 218598030 (2) Left breast abscess Narrative/Plan: 22-year-old female who has a history of diabetes mellitus type 1 who utilizes an insulin pump is having ongoing difficulties with her diabetes since the delivery. She has developed the increasing pain and swelling to the left breast and now has evidence of a greater than 6 cm abscess to the breast. Surgical consult has been requested and will likely undergo incision and drainage of the abscess tomorrow. She's been seen by the diabetes education team and they're working with her insulin pump settings to improve her sugars while she is in hospital. For antibiotic therapy given the history ceftriaxone and vancomycin have been requested to give coverage for gram-negative pathogens as well as for MRSA, she is at some risk for both given the history of diabetes in the elevated blood sugars. Cultures and the findings at surgery will help to find the course of antibiotics at discharge. Pain control seems to be improving with current Toradol. Multivitamin is added. As noted fortunately did not have DKA at admission. 03/10/2018 patient is just postoperative and is quite uncomfortable from the surgery. She denying further fevers chills or rigors. The breast is been packed. She will need home care the time of her discharge. She is trying to get home tomorrow to take her child to a appointment in [place]. She's been instructed by her primary care physician that she will not be ready for discharge tomorrow. Once cultures available within able to design the course of outpatient antibiotic therapy for treatment of this large breast abscess. Currently blood sugars are starting to improve and then pain she is feeling better. 03/12/2018 patient shows further improvement. Cultures should be available by the morning outpatient oral antibiotic therapy should then be able to be finalized. Patient does have a sulfa ALLERGY. She relates that she is not breast feeding. Fortunatelyshe has significantly improved, home care will help her pack the breast, Aquacel silver is planned for home. Current Visit: Yes Status: Acute Code(s): N61.1 - ABSCESS OF THE BREAST AND NIPPLE SNOMED Code(s): 69822662 (3) breast pain Current Visit: Yes Status: Acute Code(s): O92.29 - OTH DISORDERS OF BREAST ASSOC W AND THE PUERPERIUM SNOMED Code(s): 51607853
[2018-03-13] MEDS ORDERED: diphenhydrAMINE 25 MG CAP PO PRN (00:41)
[2018-03-13] MEDS: INSULIN PUMP MEAL BOLUS 1 UNIT MISC MISCELLANE SCH ×3 (01:40→12:31)
[2018-03-13] MEDS: HYDROcodone/APAP 5-325MG 1 EACH TAB PO PRN ×3 (02:04→14:06)
[2018-03-13 06:35] LABS: Basophils % (A) 1 %; Eosinophils # (A) 0.2 k/uL (0-0.7); Eosinophils % (A) 4 %; HCT 32.2 % (34.0-46.0); HGB 10.5 gm/dL (11.4-16.0); Lymphocytes # (A) 2.3 k/uL (1.0-4.8); Lymphocytes % (A) 40 %; MCH 27.8 pg (25.0-35.0); MCHC 32.5 g/dL (31.0-37.0); MCV 85.5 fL (80.0-100.0); Mean Platelet Volume 7.7; Monocytes # (A) 0.3 k/uL (0-1.0); Monocytes % (A) 6 %; Neutrophils # (A) 2.6 k/uL (1.3-7.7); Neutrophils % (A) 47 %; Platelet Count 292 k/uL (150-450); RBC 3.76 m/uL (3.80-5.40); RDW 12.9 % (11.5-15.5); WBC 5.6 k/uL (3.8-10.6)
[2018-03-13] MEDS: VANCOMYCIN 1,500 MG in SODIUM CHLORIDE 0.9% 250 ML IVPB SCH ×2 (06:37→14:01)
[2018-03-13] MEDS: KETOROLAC 30 MG/ML 1 ML VIAL IVP PRN (06:38)
[2018-03-13] MEDS: PANTOPRAZOLE 40 MG TABLET PO SCH (06:39)
[2018-03-13 06:49] LABS: Anion Gap 6 mmol/L; Blood Urea Nitrogen 4 mg/dL (7-17); Calcium 8.2 mg/dL (8.4-10.2); Carbon Dioxide 25 mmol/L (22-30); Chloride 108 mmol/L (98-107); Glucose 188 mg/dL (74-99); Potassium 3.7 mmol/L (3.5-5.1); Sodium 139 mmol/L (137-145)
[2018-03-13] MEDS: INSPUCOR MISCELLANE PRN (06:49)
[2018-03-13 06:50] LABS: Glucose,Whole Blood 222 mg/dL (75-99)
--- NOTE | 2018-03-13 07:13 | P.PN ---
Progress Note - Text Progress Note Date: 03/12/18 the patient is resting comfortably in her bed. She has no real complaints. The nurses have been providing local wound care. On exam there is decreased induration and swelling of the breast. Patient will be discharged home for metastases and once her glucose levels ae under better control.
[2018-03-13 08:41] VITALS: RESP 16; TEMP 98.1
[2018-03-13] MEDS: HEPARIN SODIUM,PORCINE 5,000 UNIT/ML 1 ML VIAL SQ SCH (10:10)
[2018-03-13] MEDS: cefTRIAXone IN SWFI 2,000 MG/20 ML SYRINGE IVP SCH (10:10)
[2018-03-13] MEDS: SODIUM CHLORIDE 0.9% 1,000 ML IV SCH ×2 (11:22→11:50)
[2018-03-13 11:55] VITALS: BP 118/80; PULSE 93
[2018-03-13 12:03] LABS: Glucose,Whole Blood 164 mg/dL (75-99)
[2018-03-13] MEDS: MULTIVITAMINS, THERA 1 EACH TAB PO SCH (12:37)
--- NOTE | 2018-03-13 15:28 | DS ---
DISCHARGE SUMMARY DATE OF SERVICE: 03/13/2018. FINAL DIAGNOSES: 1. Acute left breast abscess and status post incision and drainage with MSSA. 2. Diabetes mellitus type 2, uncontrolled, on insulin pump. 3. History of recent delivery. 4. Hyperlipidemia. 5. History of gastroesophageal reflux disease. 6. History of cholecystectomy. 7. History of section. DISCHARGE DISPOSITION: The patient is being discharged in stable condition with guarded prognosis. HISTORY OF PRESENT ILLNESS: This 22-year-old woman with a past history of multiple medical problems was admitted with left breast abscess. Dr. Sorensen did incision and drainage. Dr. Shaffer saw the patient. The patient improved. MSSA was grown from the culture. On exam, vitals are stable. CARDIOVASCULAR: S1, S2. ABDOMEN: Soft. NERVOUS SYSTEM: No focal deficits. DISCHARGE ADVICE: 1. Diet is cardiac. 2. Activities limited until followup. 3. Follow up with Dr. Cruz in 2-3 days. 4. Follow up with Dr. Sorensen and Dr. Shaffer as advised. MEDICATIONS: 1. Continue insulin pump. 2. Tylenol p.r.n. 3. Multivitamins 1 p.o. daily. 4. Antibiotics per Dr. Shaffer. MMODL / IJN: [id number] /
--- NOTE | 2018-03-13 18:02 | P.PN ---
Progress Note - Text Progress Note Date: 03/13/18 The patient is resting comfortably red. She is us had a dressing change. She states she feels better. On exam is decreased induration and inflation of her breast. Status post incision and drainage of breast abscess. Patient will be discharged home today with home care with wet-to-dry dressings. Patient follow- up the office next week.
[2018-03-14] MEDS ORDERED: VANCOMYCIN TROUGH DUE 1 EACH MISC MISCELLANE ONE (05:00)
== END 2018-03-13 17:30 | disposition home or self-care (01) | DRG 600 ==
LOC: EC 00:21 → 3SUR 04:00 → 6PED 06:30
PROVIDERS: ADMIT Hospitalist; ATTEND Hospitalist
PROC: 0H9U0ZZ Drainage of Left Breast, Open Approach (ICD-10-PCS; principal; 2018-03-10 07:30)
DX: N61.1 Abscess of the breast and nipple (principal); E87.1 Hypo-osmolality and hyponatremia; E10.65 Type 1 diabetes mellitus with hyperglycemia; E78.5 Hyperlipidemia, unspecified; F32.9 Major depressive disorder, single episode, unspecified; K21.9 Gastro-esophageal reflux disease without esophagitis; B95.61 Methicillin susceptible Staphylococcus aureus infection as the cause of diseases classified elsewhere; Z79.4 Long term (current) use of insulin; Z90.49 Acquired absence of other specified parts of digestive tract; Z96.41 Presence of insulin pump (external) (internal); Z98.891 History of uterine scar from previous surgery; Z88.2 Allergy status to sulfonamides; Z88.8 Allergy status to other drugs, medicaments and biological substances; Z88.1 Allergy status to other antibiotic agents; Z91.040 Latex allergy status; Z91.013 Allergy to seafood
CPT/HCPCS: 36415; 80048; 80053; 80202; 81025; 82009; 83036; 83605; 84484; 85025; 87040; 87070; 87075; 87077; 87186; 87205; 93005; 96361; 96365; 99284

== ENCOUNTER → 2018-05-19 | Outpatient (CLI) | payer OTHER ==
--- NOTE | 2018-05-19 14:04 | XR ---
EXAMINATION TYPE: XR ankle complete 3 views LT, XR foot complete 3 views LT DATE OF EXAM: 05/19/2018 COMPARISON: NONE HISTORY: 23-year-old female left ankle pain after rolling injury a few days ago FINDINGS: Left ankle: Ankle mortise is congruent with preservation of the distal tibiofibular overlap. Talar dome is intact . Small delineation to the talus tendon. Subtalar joint is aligned. No acute fracture, subluxation, o r dislocation. Foot: No acute fracture, subluxation, or dislocation. Overall joint spaces are maintained. IMPRESSION: Left ankle and foot without acute osseous abnormality seen.
== END ==
LOC: RADXRMAIN 13:35
PROVIDERS: ATTEND Physician Assistant
DX: M25.572 Pain in left ankle and joints of left foot (principal)

== ENCOUNTER 2018-06-06 13:06 | Emergency (ER) | payer OTHER ==
--- NOTE | 2018-06-06 14:23 | XR ---
EXAMINATION TYPE: XR chest 2V DATE OF EXAM ORDERED: 06/06/2018 HISTORY: Pain. REFERENCE: Previous study dated 10/19/2014. FINDINGS: The lungs are clear. Pleural spaces are clear. Heart size is normal. IMPRESSION: NORMAL CHEST.
[2018-06-06] MEDS ORDERED: SODIUM CHLORIDE 0.9% 1,000 ML IV ONE (14:28)
--- NOTE | 2018-06-06 14:32 | ED ---
URI HPI - General Chief Complaint: Upper Respiratory Infection Stated Complaint: Cough, Nose Bleed, Facial Pain Time Seen by Provider: 06/06/18 13:42 Source: patient Mode of arrival: ambulatory Limitations: no limitations - History of Present Illness Initial Comments: This is a 23yo female with PMH of type 1 diabetes and chronic migraines presenting today of congestion, cough, and sinus pressure. Pt states that she has had cough and congestion for the past week. 3 day ago she lost her voice. Today she has been experiencing dull aching headache, and had a mild nose bleed. No current epistaxis. Pt was concerned about another sinus infection and presented today for evaluation. Pt denies chest pain, dyspnea, dyspnea upon exertion, diarrhea, constipation, visual changes, nausea, vomiting, fever, nightsweats, body aches, abdominal pain, sore throat or neck stiffness. Pt VS upon arrival revealed elevated HR. Pt states that her sugar has been running in the 200s since she was sick, pt has insulin pump. Remainder of ROS (-). - Related Data Home Medications Medication Instructions Recorded Confirmed Insulin Aspart (For Pump) [NovoLOG 1 dose SQ-PUMP CONTINUOUS MDD PTS 06/03/16 (For Pump)] MOM UNSURE OF BASAL RATE. Previous Rx's Medication Instructions Recorded Acetaminophen Tab [Tylenol Tab] 500 mg PO Q6H PRN #30 tablet 03/13/18 Cephalexin [Keflex] 500 mg PO Q8HR #30 cap 03/13/18 Multivitamins, Thera [Multivitamin 1 each PO DAILY@1200 tab 03/13/18 (formulary)] Amoxicillin/Potassium Clav 1 tab PO Q12HR 7 Days #14 tab 06/06/18 [Augmentin 875-125 Tablet] Benzonatate [Benzonatate Perle] 200 mg PO HS 6 Days #6 capsule 06/06/18 Cephalexin [Keflex] 500 mg PO Q12HR 5 Days #10 cap 06/06/18 Allergies Allergy/AdvReac Type Severity Reaction Status Date / Time Fish Containing Products Allergy Unknown Rash/Hives, Verified 06/06/18 13:40 Swelling insulin glargine, human Allergy Unknown Burning Verified 06/06/18 13:40 recombin. a Sensation [From Lantus] Throughout sulfamethoxazole Allergy Unknown Swelling, Verified 06/06/18 13:40 [From Bactrim] Nausea & Vomiting trimethoprim [From Bactrim] Allergy Unknown Swelling, Verified 06/06/18 13:40 Nausea & Vomiting latex AdvReac Unknown PT HAS Verified 06/06/18 13:40 STRONG FAMILY HX OF LATEX ALLERGY. Review of Systems ROS Statement: Those systems with pertinent positive or pertinent negative responses have been documented in the HPI. ROS Other: All systems not noted in ROS Statement are negative. Constitutional: Denies: fever, chills, night sweats Eyes: Denies: eye discharge, vision change ENT: Reports: as per HPI (maxilllary sinus pressure L>R), epistaxis (1 episode) . Denies: ear pain, throat pain Respiratory: Reports: cough. Denies: dyspnea, wheezes, hemoptysis, stridor Cardiovascular: Denies: chest pain, palpitations, dyspnea on exertion Gastrointestinal: Denies: abdominal pain, nausea, vomiting, diarrhea, constipation Genitourinary: Denies: urgency, dysuria, frequency, hematuria Musculoskeletal: Denies: back pain Skin: Denies: rash, lesions Neurological: Reports: headache (today dull aching). Denies: weakness, numbness , paresthesias, confusion, abnormal gait Past Medical History Past Medical History: Diabetes Mellitus, GERD/Reflux Additional Past Medical History / Comment(s): DIABETIC FOR 10 YEARS., INSULIN PUMP. pre-eclampsia with History of Any Multi-Drug Resistant Organisms: None Reported Past Surgical History: Breast Surgery, Section, Cholecystectomy Additional Past Surgical History / Comment(s): left breast surgery related to mastitis Past Anesthesia/Blood Transfusion Reactions: No Reported Reaction Additional Past Anesthesia/Blood Transfusion Reaction / Comment(s): PT HAS NEVER RECEIVED ANESTHESIA. Past Psychological History: No Psychological Hx Reported Smoking Status: Never smoker Past Alcohol Use History: None Reported Past Drug Use History: None Reported - Past Family History Mother Family Medical History: No Reported History General Exam - General Exam Comments Initial Comments: General: The patient is awake and alert, in no distress, and does not appear acutely ill. Eye: +3 mm pupils are equal, round and reactive to light, extra-ocular movements are intact. No APD No nystagmus. There is normal conjunctiva bilaterally. No signs of icterus. No noted photophobia. Ears, nose, mouth and throat: There are moist mucous membranes and no oral lesions. Tympanic membranes within normal limits bilaterally. Oropharynx is nonerythematous, uvula midline, there is no tonsillar exudates or enlargement. Nose exam revealed no evidence of blood, no septal hematoma. Patient complains of pain to a patient of the maxillary sinus left greater than right. Neck: The neck is supple, there is no tenderness or JVD. No anterior cervical lymph adenopathy. Cardiovascular: There is a regular rate and rhythm. No murmur, rub or gallop is appreciated. Respiratory: Lungs are clear to auscultation, respirations are non-labored, breath sounds are equal. No wheezes, stridor, rales, or rhonchi. Gastrointestinal: Soft, non-distended, non-tender abdomen without masses or organomegaly noted. There is no rebound or guarding present. No CVA tenderness. Bowel sounds are unremarkable. Pump in place. Musculoskeletal: Normal ROM, no tenderness. Strength 5/5. Sensation intact. Radial pulses equal bilaterally 2+. No nuchal rigidity, negative Kernig and Brudzinski's. Neurological: A&O x 3. CN II-XII intact, There are no obvious motor or sensory deficits. Coordination appears grossly intact. Speech is normal. Skin: Skin is warm and dry and no rashes or lesions are noted. Psychiatric: Cooperative, appropriate mood & affect, normal judgment. Limitations: no limitations Course Vital Signs 06/06/18 06/06/18 06/06/18 13:37 14:00 15:21 Temperature 98.1 F Pulse Rate 129 H 105 H Respiratory 18 16 18 Rate Blood Pressure 117/75 141/99 O2 Sat by Pulse 98 95 Oximetry 06/06/18 06/06/18 06/06/18 15:30 15:40 17:02 Temperature 98.2 F Pulse Rate 104 H 106 H 100 Respiratory 16 20 16 Rate Blood Pressure 141/99 141/99 138/90 O2 Sat by Pulse 98 97 98 Oximetry Medical Decision Making - Medical Decision Making Patient afebrile. EKG obtained due to patient HR of 129. Repeat HR 109, EKG revealed sinus tachycardia. Chest x-ray negative, no infiltrates concerning for pneumonia at this time. Lungs clear to auscultation all signs of pneumonia at this time. Pt has loss of voice on exam concerning for possible viral laryngitis. CBC within normal limits, glucose elevated at 293, +1 ketones in urine. Anion gap WNL, 12. She given fluid bolus. PE concerning for sinusitis. UA concerning for possible UTI culture pending. All findings discussed with patient. Pt started on Augmentin for sinusitis and keflex for treatment of UTI. Pt requested medication for cough suppression so she can sleep at night, RX given for Tesshay Perles. Glucose management discussed with patient, I urged patient to follow up with endocrinology or her primary care provider for elevated blood glucose. Patient verbalized understanding. Return parameters discussed in detail patient. Case discussed with Dr. Duncan who reviewed imaging and laboratory findings, he agrees with impression and plan. Pt discharged in stable condition. Pt appears well, VS stable. - Lab Data Result diagrams: 06/06/18 15:07 06/06/18 15:07 Lab Results 06/06/18 06/06/18 06/06/18 Range/Units 15:07 15:07 15:50 WBC 9.4 (3.8-10.6) k/uL RBC 4.43 (3.80-5.40) m/uL Hgb 12.5 (11.4-16.0) gm/dL Hct 36.7 (34.0-46.0) % MCV 82.8 (80.0-100.0) fL MCH 28.3 (25.0-35.0) pg MCHC 34.2 (31.0-37.0) g/dL RDW 12.5 (11.5-15.5) % Plt Count 308 (150-450) k/uL Neutrophils % 68 % Lymphocytes % 22 % Monocytes % 4 % Eosinophils % 4 % Basophils % 1 % Neutrophils # 6.4 (1.3-7.7) k/uL Lymphocytes # 2.1 (1.0-4.8) k/uL Monocytes # 0.4 (0-1.0) k/uL Eosinophils # 0.3 (0-0.7) k/uL Basophils # 0.1 (0-0.2) k/uL Sodium 136 L (137-145) mmol/L Potassium 4.2 (3.5-5.1) mmol/L Chloride 105 (98-107) mmol/L Carbon Dioxide 19 L (22-30) mmol/L Anion Gap 12 mmol/L BUN 13 (7-17) mg/dL Creatinine 0.50 L (0.52-1.04) mg/dL Est GFR (CKD-EPI)AfAm >90 (>60 ml/min/1.73 sqM) Est GFR (CKD-EPI)NonAf >90 (>60 ml/min/1.73 sqM) Glucose 293 H (74-99) mg/dL Calcium 9.6 (8.4-10.2) mg/dL Total Bilirubin 0.6 (0.2-1.3) mg/dL AST 17 (14-36) U/L ALT 21 (9-52) U/L Alkaline Phosphatase 117 (38-126) U/L Total Protein 7.3 (6.3-8.2) g/dL Albumin 3.8 (3.5-5.0) g/dL Urine Color Light Yellow Urine Appearance Cloudy H (Clear) Urine pH 6.0 (5.0-8.0) Ur Specific Bowie 1.008 (1.001-1.035) Urine Protein 1+ H (Negative) Urine Glucose (UA) 4+ H (Negative) Urine Ketones 1+ H (Negative) Urine Blood Trace H (Negative) Urine Nitrite Negative (Negative) Urine Bilirubin Negative (Negative) Urine Urobilinogen <2.0 (<2.0) mg/dL Ur Leukocyte Esterase Large H (Negative) Urine RBC 10 H (0-5) /hpf Urine WBC >182 H (0-5) /hpf Urine WBC Clumps Moderate H (None) /hpf Ur Squamous Epith Cells <1 (0-4) /hpf Urine Mucus Rare H (None) /hpf - EKG Data -: EKG Interpreted by Me EKG shows normal: sinus rhythm Rate: tachycardia (Sinus tachycardia) EKG Comments: Ventricular rate 109 bpm, OK interval 140 ms, QRS duration 78 ms, QT/QTC 320/ 441 ms. This appears to be sinus tachycardia there is no ST elevation, T-wave inversion concerning for acute coronary syndrome. No delta wave concerning for [id number]. EKG interpreted by myself. Sinus tachycardia. Disposition Clinical Impression: Laryngitis, UTI (urinary tract infection), Elevated random blood glucose level , Sinusitis Disposition: HOME SELF-CARE Condition: Good Instructions: Urinary Tract Infection in Women (ED), Sinusitis (ED) Additional Instructions: Please use medication as discussed. Please follow-up with family doctor in the next 2 days for elevated blood glucose, sinusitis and UTI. Please return to emergency room if the symptoms increase or worsen or for any other concerns. Prescriptions: Amoxicillin/Potassium Clav [Augmentin 875-125 Tablet] 1 tab PO Q12HR 7 Days #14 tab Benzonatate [Benzonatate Perle] 200 mg PO HS 6 Days #6 capsule Cephalexin [Keflex] 500 mg PO Q12HR 5 Days #10 cap Is patient prescribed a controlled substance at d/c from ED?: No Referrals: Phong Cruz MD [Primary Care Provider] - 1-2 days Time of Disposition: 16:51
[2018-06-06 15:25] LABS: ALT 21 U/L (9-52); AST 17 U/L (14-36); Albumin 3.8 g/dL (3.5-5.0); Alkaline Phosphatase 117 U/L (38-126); Anion Gap 12 mmol/L; Basophils # (A) 0.1 k/uL (0-0.2); Basophils % (A) 1 %; Blood Urea Nitrogen 13 mg/dL (7-17); Calcium 9.6 mg/dL (8.4-10.2); Carbon Dioxide 19 mmol/L (22-30); Chloride 105 mmol/L (98-107); Eosinophils # (A) 0.3 k/uL (0-0.7); Eosinophils % (A) 4 %; Glucose 293 mg/dL (74-99); HCT 36.7 % (34.0-46.0); HGB 12.5 gm/dL (11.4-16.0); Lymphocytes # (A) 2.1 k/uL (1.0-4.8); Lymphocytes % (A) 22 %; MCH 28.3 pg (25.0-35.0); MCHC 34.2 g/dL (31.0-37.0); MCV 82.8 fL (80.0-100.0); Mean Platelet Volume 7.3; Monocytes # (A) 0.4 k/uL (0-1.0); Monocytes % (A) 4 %; Neutrophils # (A) 6.4 k/uL (1.3-7.7); Neutrophils % (A) 68 %; Platelet Count 308 k/uL (150-450); Potassium 4.2 mmol/L (3.5-5.1); RBC 4.43 m/uL (3.80-5.40); RDW 12.5 % (11.5-15.5); Sodium 136 mmol/L (137-145); Total Bilirubin 0.6 mg/dL (0.2-1.3); Total Protein 7.3 g/dL (6.3-8.2); WBC 9.4 k/uL (3.8-10.6)
[2018-06-06 16:15] LABS: Appearance,Urine Cloudy (Clear); Bilirubin,Urine Negative (Negative); Blood,Urine Trace (Negative); Color,Urine Light Yellow; Glucose,Urine (UA) 4+ (Negative); Ketones,Urine 1+ (Negative); Leukocyte Esterase,Urine Large (Negative); Mucus,Urine Rare /hpf; Nitrite,Urine Negative (Negative); Protein,Urine 1+ (Negative); RBC,Urine 10 /hpf (0-5); Specific Gravity,Urine 1.008 (1.001-1.035); Squamous Epithelial Cell,Urine <1 /hpf (0-4); Urobilinogen,Urine <2.0 mg/dL (<2.0); WBC,Urine >182 /hpf (0-5)
[2018-06-06 17:04] VITALS: BP 138/90; PULSE 100; RESP 16; TEMP 98.2
== END 2018-06-06 17:02 | disposition home or self-care (01) ==
LOC: EC 13:06
DX: J04.0 Acute laryngitis (principal); N39.0 Urinary tract infection, site not specified; J32.9 Chronic sinusitis, unspecified; E10.65 Type 1 diabetes mellitus with hyperglycemia; Z79.4 Long term (current) use of insulin; Z91.013 Allergy to seafood; Z88.2 Allergy status to sulfonamides; Z88.8 Allergy status to other drugs, medicaments and biological substances; Z91.040 Latex allergy status
CPT/HCPCS: 36415; 71046; 80053; 81001; 85025; 87077; 87086; 87186; 93005; 96360; 99284

== ENCOUNTER 2018-08-07 18:00 | Emergency (ER) | payer OTHER ==
[2018-08-07 18:15] VITALS: BP 152/86; PULSE 106; RESP 20; TEMP 97.5
[2018-08-07] MEDS ORDERED: KETOROLAC 30 MG/ML 1 ML VIAL IM STA (18:42)
--- NOTE | 2018-08-07 19:57 | XR ---
EXAMINATION TYPE: XR chest 2V DATE OF EXAM: 08/07/2018 COMPARISON: 06/06/2018 HISTORY: Shoulder pain TECHNIQUE: Frontal and lateral views of the chest are obtained. FINDINGS: Heart and mediastinum are normal. Lungs are clear. Diaphragm is normal. Bony thorax is int act. IMPRESSION: Normal chest. No change.
--- NOTE | 2018-08-07 19:58 | XR ---
EXAMINATION TYPE: XR shoulder complete LT DATE OF EXAM: 08/07/2018 COMPARISON: NONE HISTORY: Shoulder pain TECHNIQUE: 3 views FINDINGS: I see no fracture nor dislocation. Joint spaces are normal. There are no pathologic calcifi cations. IMPRESSION: Normal left shoulder.
--- NOTE | 2018-08-07 19:58 | XR ---
EXAMINATION TYPE: XR hand complete LT DATE OF EXAM: 08/07/2018 COMPARISON: NONE HISTORY: Pain TECHNIQUE: 3 views FINDINGS: Metacarpals are intact. I see no fracture nor dislocation. Joint spaces are normal. There a re no erosions. IMPRESSION: Negative left hand exam.
--- NOTE | 2018-08-07 20:07 | ED ---
Fall HPI - General Chief Complaint: Fall Stated Complaint: FALL DOWN STAIRCASE, LEFT ARM AND SHOULDER PAIN Time Seen by Provider: 08/07/18 18:28 Source: patient Mode of arrival: ambulatory - History of Present Illness Initial Comments: 23-year-old female with past medical history of DMII presents today for chief complaint of left shoulder and rib pain following fall at 3 PM this afternoon. Patient states that she attempted to avoid stepping on her kitten who was on a step and fell down multiple steps, patient is unsure of the number however she states she only fell down one and slid down the rest on her left side. Patient admitted to left shoulder pain as well as left rib pain. Patient denies any head injury, loss consciousness, neck pain, back pain, dyspnea, dyspnea on exertion or anterior chest trauma. Patient denies chest pain, shortness breath , dizziness, palpitation prior to falling she states this was mechanical nature. Patient denies any numbness, tingling, loss sensation of the left upper extremities. Patient does admit to pain with range of motion. Patient denies inability to range the left shoulder, or muscle weakness. In addition she does admit to left hand pain. Remainder of ROS (-), patient denies any recent fever, chills, shortness of breath, chest pain, back pain, abdominal pain, nausea or vomiting, numbness or tingling, dysuria or hematuria, constipation or diarrhea, headaches or visual changes, or any other complaints. The patient is well- appearing, vital signs within acceptable limits. No signs acute distress. Denies any medications prior to arrival to emergency department this evening. - Related Data Home Medications Medication Instructions Recorded Confirmed Insulin Aspart (For Pump) [NovoLOG 1 dose SQ-PUMP CONTINUOUS MDD PTS 06/03/16 (For Pump)] MOM UNSURE OF BASAL RATE. Previous Rx's Medication Instructions Recorded Acetaminophen Tab [Tylenol Tab] 500 mg PO Q6H PRN #30 tablet 03/13/18 Cephalexin [Keflex] 500 mg PO Q8HR #30 cap 03/13/18 Multivitamins, Thera [Multivitamin 1 each PO DAILY@1200 tab 03/13/18 (formulary)] Amoxicillin/Potassium Clav 1 tab PO Q12HR 7 Days #14 tab 06/06/18 [Augmentin 875-125 Tablet] Benzonatate [Benzonatate Perle] 200 mg PO HS 6 Days #6 capsule 06/06/18 Cephalexin [Keflex] 500 mg PO Q12HR 5 Days #10 cap 06/06/18 Ibuprofen 800 mg PO Q8H PRN 7 Days #21 tablet 08/07/18 Allergies Allergy/AdvReac Type Severity Reaction Status Date / Time Fish Containing Products Allergy Unknown Rash/Hives, Verified 08/07/18 18:15 Swelling insulin glargine, human Allergy Unknown Burning Verified 08/07/18 18:15 recombin. a Sensation [From Lantus] Throughout sulfamethoxazole Allergy Unknown Swelling, Verified 08/07/18 18:15 [From Bactrim] Nausea & Vomiting trimethoprim [From Bactrim] Allergy Unknown Swelling, Verified 08/07/18 18:15 Nausea & Vomiting latex AdvReac Unknown PT HAS Verified 08/07/18 18:15 STRONG FAMILY HX OF LATEX ALLERGY. Review of Systems ROS Statement: Those systems with pertinent positive or pertinent negative responses have been documented in the HPI. ROS Other: All systems not noted in ROS Statement are negative. Constitutional: Denies: fever, chills ENT: Denies: as per HPI, ear pain Respiratory: Denies: cough, dyspnea, wheezes, hemoptysis, stridor Cardiovascular: Denies: chest pain, palpitations Endocrine: Denies: fatigue Gastrointestinal: Denies: abdominal pain, nausea, vomiting, diarrhea, constipation, melena Genitourinary: Denies: urgency, dysuria, frequency, hematuria Musculoskeletal: Reports: arthralgia. Denies: back pain, joint swelling Skin: Denies: rash Neurological: Denies: headache, weakness, numbness, paresthesias, confusion Past Medical History Past Medical History: Diabetes Mellitus, GERD/Reflux Additional Past Medical History / Comment(s): DIABETIC FOR 10 YEARS., INSULIN PUMP. pre-eclampsia with History of Any Multi-Drug Resistant Organisms: None Reported Past Surgical History: Breast Surgery, Section, Cholecystectomy Additional Past Surgical History / Comment(s): left breast surgery related to mastitis Past Anesthesia/Blood Transfusion Reactions: No Reported Reaction Additional Past Anesthesia/Blood Transfusion Reaction / Comment(s): PT HAS NEVER RECEIVED ANESTHESIA. Past Psychological History: No Psychological Hx Reported Smoking Status: Never smoker Past Alcohol Use History: None Reported Past Drug Use History: None Reported - Past Family History Mother Family Medical History: No Reported History General Exam - General Exam Comments Initial Comments: General: The patient is awake and alert, in no distress, and does not appear acutely ill. Eye: Pupils are equal, round and reactive to light, extra-ocular movements are intact. No nystagmus. There is normal conjunctiva bilaterally. No signs of icterus. Ears, nose, mouth and throat: There are moist mucous membranes and no oral lesions. Tympanic membranes within normal limits bilaterally no evidence of hemotympanum. No Champagne or raccoon sign. Neck: The neck is supple, there is no tenderness or JVD. There is no midline tenderness to patient over the cervical spine. No paravertebral tenderness patient is able to fully range the flexion, extension, lateral flexion, rotation. Patient denies any pain to palpation of the entire length was mild, midline. Cardiovascular: There is a regular rate and rhythm. No murmur, rub or gallop is appreciated. Respiratory: Lungs are clear to auscultation, respirations are non-labored, breath sounds are equal. No wheezes, stridor, rales, or rhonchi. Gastrointestinal: Soft, non-distended, non-tender abdomen without masses or organomegaly noted. There is no rebound or guarding present. No CVA tenderness. Bowel sounds are unremarkable. Musculoskeletal: No tenderness to palpation of the anterior chest wall, there is no evidence of ecchymosis or crepitus or patient of the rib cage. Normal ROM of the right upper extremity, patient is able to range at the left upper to me however she is apprehensive secondary to pain. Patient is diffusely tender to the patient of the left shoulder, there is no tenderness to palpation of the scapula. No obvious supple defects or step-offs. Strength 5/5 in testing the strength of the upper extremities including the left shoulder equal bilaterally. Sensation intact of the upper extremities equally bilaterally. No badge anesthesia. She is able to make the okay, fingers crossed, extend at the wrist, finger opposition of the upper extremity equally bilaterally, there is intact nerves median radial and ulnar. No evidence of a strep. No snuffbox tenderness. Patient is able to fully range at the end CP, DIP and PIP joints of the left hand. Radial pulses equal bilaterally 2+. Compartments soft and compressible the upper extremity's. Neurological: A&O x 3. CN II-XII intact, There are no obvious motor or sensory deficits. Coordination appears grossly intact. Speech is normal. Skin: Skin is warm and dry and no rashes or lesions are noted. Noted bruising on skin examination. Psychiatric: Cooperative, appropriate mood & affect, normal judgment. Course Vital Signs 08/07/18 18:12 Temperature 97.5 F L Pulse Rate 106 H Respiratory 20 Rate Blood Pressure 152/86 O2 Sat by Pulse 99 Oximetry Medical Decision Making - Medical Decision Making Imaging studies negative for acute process. No atomic will snuffbox tenderness concerning for scaphoid fracture. Patient is neurovascularly intact. Upon examination of the left upper extremity there is no patch paresthesias, patient and median and radial nerve intact. No obvious defect or deformity Patient is able to range however this is painful concerning for left shoulder strain. Patient was placed in a sling. And given Toradol for pain management which she stated helped alleviate symptoms. Remainder of physical examination unremarkable. At this time I do feel patient is stable for discharge with primary care follow-up in the next 3-5 days, and orthopedic surgery for persistent symptoms. Patient stated ibuprofen and Tylenol for pain management as needed and return for any worsening symptoms as discussed. Patient verbalized understanding. Pt discharged in stable condition after discussion with Dr. Flores. Disposition Clinical Impression: Left shoulder pain, Fall, Left hand pain Disposition: HOME SELF-CARE Condition: Good Instructions: Shoulder Sprain (ED), R.I.C.E. Treatment (ED) Additional Instructions: Please use medication as discussed. Please follow-up with family doctor in the next 2-3 days. Please seek orthopedic consultation in the next week. Please use sling for comfort. Please return to emergency room if the symptoms increase or worsen or for any other concerns. Prescriptions: Ibuprofen 800 mg PO Q8H PRN 7 Days #21 tablet PRN Reason: Pain Is patient prescribed a controlled substance at d/c from ED?: No Referrals: Phong Cruz MD [Primary Care Provider] - 1-2 days Tone Bell PAC [PHYSICIAN GRINDER DRESSER] - 1-2 days Time of Disposition: 20:06
[2018-08-07] MEDS ORDERED: ACETAMINOPHEN TAB 325 MG TAB PO STA (20:10)
== END 2018-08-07 20:32 | disposition home or self-care (01) ==
LOC: EC 18:00
DX: M25.512 Pain in left shoulder (principal); M79.642 Pain in left hand; R07.81 Pleurodynia; E11.9 Type 2 diabetes mellitus without complications; Z88.2 Allergy status to sulfonamides; Z88.8 Allergy status to other drugs, medicaments and biological substances; Z91.013 Allergy to seafood; Z91.040 Latex allergy status; Z79.4 Long term (current) use of insulin; Z96.41 Presence of insulin pump (external) (internal); W10.9XXA Fall (on) (from) unspecified stairs and steps, initial encounter; Y93.89 Activity, other specified; Y92.009 Unspecified place in unspecified non-institutional (private) residence as the place of occurrence of the external cause
CPT/HCPCS: 73030; 73130; 71046; 99283; 96372; J1885

== ENCOUNTER 2018-10-03 23:48 | Inpatient (IN) | payer OTHER ==
[2018-10-04] MEDS ORDERED: SODIUM CHLORIDE 0.9% 2,000 ML IV ONE ×2 (00:19→02:48)
[2018-10-04 00:28] LABS: Glucose,Whole Blood >600 mg/dL (75-99)
[2018-10-04] MEDS ORDERED: SODIUM CHLORIDE 0.9% 1,000 ML IV SCH (00:30)
[2018-10-04 00:43] LABS: Basophils # (A) 0.1 k/uL (0-0.2); Basophils % (A) 1 %; Eosinophils # (A) 0.1 k/uL (0-0.7); Eosinophils % (A) 1 %; HCT 40.6 % (34.0-46.0); HGB 12.4 gm/dL (11.4-16.0); Hypochromasia Marked; Lymphocytes # (A) 2.2 k/uL (1.0-4.8); Lymphocytes % (A) 23 %; MCH 27.4 pg (25.0-35.0); MCHC 30.5 g/dL (31.0-37.0); Mean Platelet Volume 7.8; Monocytes # (A) 0.3 k/uL (0-1.0); Monocytes % (A) 3 %; Neutrophils # (A) 6.8 k/uL (1.3-7.7); Neutrophils % (A) 71 %; Platelet Count 337 k/uL (150-450); RBC 4.52 m/uL (3.80-5.40); RDW 12.9 % (11.5-15.5); WBC 9.6 k/uL (3.8-10.6)
--- NOTE | 2018-10-04 00:47 | ED ---
Nausea/Vomiting/Diarrhea HPI - General Source: patient, RN notes reviewed, old records reviewed Mode of arrival: wheelchair Limitations: no limitations <Dominique Mehta - Last Filed: 10/04/18 04:22> <Alejandra Linares - Last Filed: 10/04/18 04:35> - General Chief complaint: Nausea/Vomiting/Diarrhea Stated complaint: diabetic Time Seen by Provider: 10/04/18 00:08 - History of Present Illness Initial comments: Patient is a 23-year-old female who presents emergency department today with chief complaint of a head neck and back injury after falling and slipping on the ice. She reports that this occurred and she had no loss of consciousness after door. This happened earlier this morning. Patient states that she's had multiple episodes of vomiting within the past few hours. Patient states she is a type I diabetic. She is concerned for DKA. She states her mouth feels very dry and she feels weak. Patient reports that she has had shoulder pain with range of motion. Patient denies any lacerations or other extremity injuries related to her slip and fall on the ice. (Dominique Mehta) - Related Data Home Medications Medication Instructions Recorded Confirmed Insulin Aspart (For Pump) [NovoLOG 1 dose SQ-PUMP CONTINUOUS MDD PTS 06/03/16 (For Pump)] MOM UNSURE OF BASAL RATE. Previous Rx's Medication Instructions Recorded Acetaminophen Tab [Tylenol Tab] 500 mg PO Q6H PRN #30 tablet 03/13/18 Cephalexin [Keflex] 500 mg PO Q8HR #30 cap 03/13/18 Multivitamins, Thera [Multivitamin 1 each PO DAILY@1200 tab 03/13/18 (formulary)] Amoxicillin/Potassium Clav 1 tab PO Q12HR 7 Days #14 tab 06/06/18 [Augmentin 875-125 Tablet] Benzonatate [Benzonatate Perle] 200 mg PO HS 6 Days #6 capsule 06/06/18 Cephalexin [Keflex] 500 mg PO Q12HR 5 Days #10 cap 06/06/18 Ibuprofen 800 mg PO Q8H PRN 7 Days #21 tablet 08/07/18 Allergies Allergy/AdvReac Type Severity Reaction Status Date / Time Fish Containing Products Allergy Unknown Rash/Hives, Verified 10/03/18 23:55 Swelling insulin glargine, human Allergy Unknown Burning Verified 10/03/18 23:55 recombin. a Sensation [From Lantus] Throughout sulfamethoxazole Allergy Unknown Swelling, Verified 10/03/18 23:55 [From Bactrim] Nausea & Vomiting trimethoprim [From Bactrim] Allergy Unknown Swelling, Verified 10/03/18 23:55 Nausea & Vomiting latex AdvReac Unknown PT HAS Verified 10/03/18 23:55 STRONG FAMILY HX OF LATEX ALLERGY. Review of Systems ROS Other: All systems not noted in ROS Statement are negative. <Dominique Mehta - Last Filed: 10/04/18 04:22> ROS Other: All systems not noted in ROS Statement are negative. <Alejandra Linares - Last Filed: 10/04/18 04:35> ROS Statement: Those systems with pertinent positive or pertinent negative responses have been documented in the HPI. Past Medical History Past Medical History: Diabetes Mellitus, GERD/Reflux Additional Past Medical History / Comment(s): DIABETIC FOR 10 YEARS., INSULIN PUMP. pre-eclampsia with History of Any Multi-Drug Resistant Organisms: None Reported Past Surgical History: Breast Surgery, Section, Cholecystectomy Additional Past Surgical History / Comment(s): left breast surgery related to mastitis Past Anesthesia/Blood Transfusion Reactions: No Reported Reaction Additional Past Anesthesia/Blood Transfusion Reaction / Comment(s): PT HAS NEVER RECEIVED ANESTHESIA. Past Psychological History: No Psychological Hx Reported Smoking Status: Never smoker Past Alcohol Use History: None Reported Past Drug Use History: None Reported - Past Family History Mother Family Medical History: No Reported History <Dominique Mehta - Last Filed: 10/04/18 04:22> General Exam Limitations: no limitations General appearance: alert, in no apparent distress Head exam: Present: atraumatic, normocephalic, normal inspection Eye exam: Present: normal appearance, PERRL, EOMI. Absent: scleral icterus, conjunctival injection, periorbital swelling ENT exam: Present: normal exam, mucous membranes moist. Absent: normal oropharynx (dry, fruity breath noted. ) Neck exam: Present: normal inspection. Absent: tenderness, meningismus, lymphadenopathy Respiratory exam: Present: normal lung sounds bilaterally. Absent: respiratory distress, wheezes, rales, rhonchi, stridor Cardiovascular Exam: Present: regular rate, normal rhythm, normal heart sounds. Absent: systolic murmur, diastolic murmur, rubs, gallop, clicks GI/Abdominal exam: Present: soft, normal bowel sounds. Absent: distended, tenderness, guarding, rebound, rigid Extremities exam: Present: normal inspection, full ROM, normal capillary refill. Absent: tenderness, pedal edema, joint swelling, calf tenderness Back exam: Present: normal inspection Neurological exam: Present: alert, oriented X3, CN II-XII intact Expanded Patient oriented to: Present: person, place, time Speech: Present: fluid speech Cranial nerves: EOM's Intact: Normal Cerebellar function: Finger to Nose: Normal Upper motor neuron: Pronator Drift: Normal Sensory exam: Upper Extremity Light Touch: Normal, Lower Extremity Light Touch: Normal Motor strength exam: RUE: 5, LUE: 5, RLE: 5, LLE: 5 Eye Response: (4) open spontaneously Motor Response: (6) obeys commands Verbal Response: (5) oriented [place] Total: 15 Psychiatric exam: Present: normal affect, normal mood Skin exam: Present: warm, dry, intact, normal color. Absent: rash <Dominique Mehta - Last Filed: 10/04/18 04:22> <Alejandra Linares P - Last Filed: 10/04/18 04:35> - General Exam Comments Initial Comments: 23-year-old female. Alert and oriented 3. (Dominique Mehta) Vital Signs 10/03/18 10/04/18 10/04/18 23:52 01:55 02:11 Temperature 97.9 F Pulse Rate 137 H 128 H 128 H Respiratory 18 22 21 Rate Blood Pressure 114/75 128/62 130/72 O2 Sat by Pulse 100 100 100 Oximetry 10/04/18 03:34 Temperature Pulse Rate 129 H Respiratory 17 Rate Blood Pressure 132/81 O2 Sat by Pulse 100 Oximetry Medical Decision Making - Lab Data Result diagrams: 10/04/18 00:20 10/04/18 00:20 - Radiology Data Radiology results: report reviewed <Dominique Mehta - Last Filed: 10/04/18 04:22> - Lab Data Result diagrams: 10/04/18 00:20 10/04/18 00:20 <Alejandra Linares P - Last Filed: 10/04/18 04:35> - Medical Decision Making 23-year-old female presents emergency Department they will contact chief complaint of nausea and vomiting. She reports that she slipped and fell on ice at her head earlier today. She states that she started had some vomiting episodes this afternoon she is a type I diabetic. At this time she has no neurological deficits. Patient reports that her blood sugars were normal earlier today. Upon arrival she states she's been checked in quite some time. Blood sugar was over 600. She started on IV fluids and laboratory obtained. She is acetone positive. She was also very tachycardic likely due to dehydration. She was given a 2 L bolus. She continued to have some tachycardia after 2 L bolus heart rate was 120. She is given a second 2 liter bolus. (Dominique Mehta) I personally saw and examined the patient. I reviewed and agree with the mid- level provider findings including all diagnostic interpretations and treatment plans as written unless otherwise stated. Patient care was discussed with electrical designer Dr. Reyes who accepts the patient to the ICU for DKA (Alejandra Linares) - Lab Data Lab Results 10/04/18 10/04/18 10/04/18 Range/Units 00:16 00:20 00:20 WBC 9.6 (3.8-10.6) k/uL RBC 4.52 (3.80-5.40) m/uL Hgb 12.4 (11.4-16.0) gm/dL Hct 40.6 (34.0-46.0) % MCV 90.0 (80.0-100.0) fL MCH 27.4 (25.0-35.0) pg MCHC 30.5 L (31.0-37.0) g/dL RDW 12.9 (11.5-15.5) % Plt Count 337 (150-450) k/uL Neutrophils % 71 % Lymphocytes % 23 % Monocytes % 3 % Eosinophils % 1 % Basophils % 1 % Neutrophils # 6.8 (1.3-7.7) k/uL Lymphocytes # 2.2 (1.0-4.8) k/uL Monocytes # 0.3 (0-1.0) k/uL Eosinophils # 0.1 (0-0.7) k/uL Basophils # 0.1 (0-0.2) k/uL Hypochromasia Marked PT (9.0-12.0) sec INR (<1.2) APTT (22.0-30.0) sec Sodium 131 L (137-145) mmol/L Potassium 5.5 H (3.5-5.1) mmol/L Chloride 97 L (98-107) mmol/L Carbon Dioxide 9 L* (22-30) mmol/L Anion Gap 25 mmol/L BUN 19 H (7-17) mg/dL Creatinine 0.90 (0.52-1.04) mg/dL Est GFR (CKD-EPI)AfAm >90 (>60 ml/min/1.73 sqM) Est GFR (CKD-EPI)NonAf 90 (>60 ml/min/1.73 sqM) Glucose 839 H* (74-99) mg/dL POC Glucose (mg/dL) >600 H (75-99) mg/dL POC Glu Post Closing Specialist ID Linsey Jimenez Calcium 10.0 (8.4-10.2) mg/dL Total Bilirubin 1.3 (0.2-1.3) mg/dL AST 15 (14-36) U/L ALT 32 (9-52) U/L Alkaline Phosphatase 220 H (38-126) U/L Total Protein 7.5 (6.3-8.2) g/dL Albumin 4.4 (3.5-5.0) g/dL Urine Color Urine Appearance (Clear) Urine pH (5.0-8.0) Ur Specific [place] (1.001-1.035) Urine Protein (Negative) Urine Glucose (UA) (Negative) Urine Ketones (Negative) Urine Blood (Negative) Urine Nitrite (Negative) Urine Bilirubin (Negative) Urine Urobilinogen (<2.0) mg/dL Ur Leukocyte Esterase (Negative) Urine HCG, Qual (Not Detectd) Acetone, Qual Positive (Negative) 10/04/18 10/04/18 10/04/18 Range/Units 00:20 00:20 00:20 WBC (3.8-10.6) k/uL RBC (3.80-5.40) m/uL Hgb (11.4-16.0) gm/dL Hct (34.0-46.0) % MCV (80.0-100.0) fL MCH (25.0-35.0) pg MCHC (31.0-37.0) g/dL RDW (11.5-15.5) % Plt Count (150-450) k/uL Neutrophils % % Lymphocytes % % Monocytes % % Eosinophils % % Basophils % % Neutrophils # (1.3-7.7) k/uL Lymphocytes # (1.0-4.8) k/uL Monocytes # (0-1.0) k/uL Eosinophils # (0-0.7) k/uL Basophils # (0-0.2) k/uL Hypochromasia PT 9.5 (9.0-12.0) sec INR 0.9 (<1.2) APTT 22.5 (22.0-30.0) sec Sodium (137-145) mmol/L Potassium (3.5-5.1) mmol/L Chloride (98-107) mmol/L Carbon Dioxide (22-30) mmol/L Anion Gap mmol/L BUN (7-17) mg/dL Creatinine (0.52-1.04) mg/dL Est GFR (CKD-EPI)AfAm (>60 ml/min/1.73 sqM) Est GFR (CKD-EPI)NonAf (>60 ml/min/1.73 sqM) Glucose (74-99) mg/dL POC Glucose (mg/dL) (75-99) mg/dL POC Glu Post Closing Specialist ID Calcium (8.4-10.2) mg/dL Total Bilirubin (0.2-1.3) mg/dL AST (14-36) U/L ALT (9-52) U/L Alkaline Phosphatase (38-126) U/L Total Protein (6.3-8.2) g/dL Albumin (3.5-5.0) g/dL Urine Color Colorless Urine Appearance Clear (Clear) Urine pH 5.5 (5.0-8.0) Ur Specific [place] 1.019 (1.001-1.035) Urine Protein Negative (Negative) Urine Glucose (UA) 4+ H (Negative) Urine Ketones 4+ H (Negative) Urine Blood Negative (Negative) Urine Nitrite Negative (Negative) Urine Bilirubin Negative (Negative) Urine Urobilinogen <2.0 (<2.0) mg/dL Ur Leukocyte Esterase Negative (Negative) Urine HCG, Qual Not Detected (Not Detectd) Acetone, Qual (Negative) 10/04/18 Range/Units 01:51 WBC (3.8-10.6) k/uL RBC (3.80-5.40) m/uL Hgb (11.4-16.0) gm/dL Hct (34.0-46.0) % MCV (80.0-100.0) fL MCH (25.0-35.0) pg MCHC (31.0-37.0) g/dL RDW (11.5-15.5) % Plt Count (150-450) k/uL Neutrophils % % Lymphocytes % % Monocytes % % Eosinophils % % Basophils % % Neutrophils # (1.3-7.7) k/uL Lymphocytes # (1.0-4.8) k/uL Monocytes # (0-1.0) k/uL Eosinophils # (0-0.7) k/uL Basophils # (0-0.2) k/uL Hypochromasia PT (9.0-12.0) sec INR (<1.2) APTT (22.0-30.0) sec Sodium (137-145) mmol/L Potassium (3.5-5.1) mmol/L Chloride (98-107) mmol/L Carbon Dioxide (22-30) mmol/L Anion Gap mmol/L BUN (7-17) mg/dL Creatinine (0.52-1.04) mg/dL Est GFR (CKD-EPI)AfAm (>60 ml/min/1.73 sqM) Est GFR (CKD-EPI)NonAf (>60 ml/min/1.73 sqM) Glucose (74-99) mg/dL POC Glucose (mg/dL) >600 H (75-99) mg/dL POC Glu Post Closing Specialist ID Linsey Jimenez Calcium (8.4-10.2) mg/dL Total Bilirubin (0.2-1.3) mg/dL AST (14-36) U/L ALT (9-52) U/L Alkaline Phosphatase (38-126) U/L Total Protein (6.3-8.2) g/dL Albumin (3.5-5.0) g/dL Urine Color Urine Appearance (Clear) Urine pH (5.0-8.0) Ur Specific [place] (1.001-1.035) Urine Protein (Negative) Urine Glucose (UA) (Negative) Urine Ketones (Negative) Urine Blood (Negative) Urine Nitrite (Negative) Urine Bilirubin (Negative) Urine Urobilinogen (<2.0) mg/dL Ur Leukocyte Esterase (Negative) Urine HCG, Qual (Not Detectd) Acetone, Qual (Negative) - EKG Data EKG Comments: EKG shows sinus tachycardia, possible left atrial enlargement. RSR every her pattern in V1 suggests right ventricular conduction delay. Borderline EKG. Recheck later 130. UT interval is 140 ms. QRS ration 82. QTQTC's or N/462. ( Dominique Mehta) 10/04/18 00:59 EKG performed shows sinus tachycardia possible left atrial enlargement. RSR QR pattern in V1's just right ventricular conduction delay. Ventricular rate of 130 beats were minute. Intervals 140 ms. QRS duration 82. QT QTc is 314/462 ms. (Dominique Mehta) - Radiology Data CT of the brain shows no acute infarct hemorrhage or mass edema. 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 CT C- spine is negative for any acute process. Normal chest x-ray (Dominique Mehta) Disposition Is patient prescribed a controlled substance at d/c from ED?: No Time of Disposition: 02:59 <Dominique Mehta - Last Filed: 10/04/18 04:22> <Alejandra Linares - Last Filed: 10/04/18 04:35> Clinical Impression: DKA (diabetic ketoacidoses), Fall, Thoracic back pain, Dehydration, Tachycardia Disposition: ADMITTED IP TO THIS HOSP Condition: Stable
[2018-10-04 00:52] LABS: ALT 32 U/L (9-52); AST 15 U/L (14-36); Albumin 4.4 g/dL (3.5-5.0); Alkaline Phosphatase 220 U/L (38-126); Anion Gap 25 mmol/L; Blood Urea Nitrogen 19 mg/dL (7-17); Chloride 97 mmol/L (98-107); Potassium 5.5 mmol/L (3.5-5.1); Sodium 131 mmol/L (137-145); Total Bilirubin 1.3 mg/dL (0.2-1.3); Total Protein 7.5 g/dL (6.3-8.2)
[2018-10-04 00:54] LABS: INR 0.9 (<1.2); Partial Thromboplastin Time 22.5 sec (22.0-30.0); Prothrombin Time 9.5 sec (9.0-12.0)
[2018-10-04 01:02] LABS: Glucose 839 mg/dL (74-99)
[2018-10-04 01:03] LABS: Carbon Dioxide 9 mmol/L (22-30)
[2018-10-04] MEDS ORDERED: INSULIN REGULAR BOLUS (FROM DRIP BAG) IV ONE (01:05)
[2018-10-04] MEDS ORDERED: INSULIN REGULAR 100 UNIT in SODIUM CHLORIDE 0.9% 100 ML IV SCH (01:15)
--- NOTE | 2018-10-04 01:15 | CT ---
EXAM: CT Head Without Intravenous Contrast CLINICAL HISTORY: Trauma TECHNIQUE: Axial computed tomography images of the head/brain without intravenous contrast. CTDI is 0.085, 0.085, 45.2, 10.2 mGy and DLP is 1248.8 mGy-cm. This CT exam was performed using one or more of the following dose reduction techniques: automated exposure control, adjustment of the mA and/or kV according to patient size, and/or use of iterative reconstruction technique. COMPARISON: No relevant prior studies available. FINDINGS: Brain: No acute infarct, hemorrhage, mass or edema. No significant white matter disease. Ventricles: Unremarkable. No ventriculomegaly. 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 No acute fracture. Soft tissues: Unremarkable. Sinuses: Mild mucosal thickening of the paranasal sinuses. Mastoid air cells: Unremarkable as visualized. No mastoid effusion. IMPRESSION: 1. No acute infarct, hemorrhage, mass or edema. 2. 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 EXAM: CT Cervical Spine Without Intravenous Contrast CLINICAL HISTORY: Trauma TECHNIQUE: Axial computed tomography images of the cervical spine without intravenous contrast. CTDI is 0.085, 0.085, 45.2, 10.2 mGy and DLP is 1248.8 mGy-cm. This CT exam was performed using one or more of the following dose reduction techniques: automated exposure control, adjustment of the mA and/or kV according to patient size, and/or use of iterative reconstruction technique. COMPARISON: No relevant prior studies available. FINDINGS: Vertebrae: No acute fracture or traumatic malalignment. Straightening of the normal cervical lordosis, likely positional. Discs/spinal canal/neural foramina: No acute findings. No spinal canal stenosis. Soft tissues: Unremarkable. IMPRESSION: No acute findings.
--- NOTE | 2018-10-04 01:15 | XR ---
EXAM: XR Chest, 2 Views CLINICAL HISTORY: None. TECHNIQUE: Frontal and lateral views of the chest. COMPARISON: Chest x-ray dated 08/07/2018 FINDINGS: Lungs: Unremarkable. No consolidation. Pleural space: Unremarkable. No pneumothorax. Heart: Unremarkable. No cardiomegaly. Mediastinum: Unremarkable. Bones/joints: Unremarkable. IMPRESSION: Normal chest x-rays.
[2018-10-04 01:52] LABS: Glucose,Whole Blood >600 mg/dL (75-99)
[2018-10-04 02:47] LABS: Appearance,Urine Clear (Clear); Bilirubin,Urine Negative (Negative); Blood,Urine Negative (Negative); Color,Urine Colorless; Glucose,Urine (UA) 4+ (Negative); Leukocyte Esterase,Urine Negative (Negative); Nitrite,Urine Negative (Negative); PH, Urine 5.5 (5.0-8.0); Protein,Urine Negative (Negative); Specific Gravity,Urine 1.019 (1.001-1.035); Urobilinogen,Urine <2.0 mg/dL (<2.0)
[2018-10-04] MEDS ORDERED: KETOROLAC 30 MG/ML 1 ML VIAL IVP STA (02:48)
[2018-10-04 03:01] LABS: Ketones,Urine 4+ (Negative)
[2018-10-04 03:35] LABS: Glucose,Whole Blood 377 mg/dL (75-99)
[2018-10-04 04:17] LABS: Glucose,Whole Blood 281 mg/dL (75-99)
[2018-10-04] MEDS ORDERED: IBUPROFEN 800 MG TAB PO PRN (04:30)
[2018-10-04 04:44] LABS: Glucose,Whole Blood 247 mg/dL (75-99)
[2018-10-04 04:52] LABS: HCT 32.6 % (34.0-46.0); MCH 28.7 pg (25.0-35.0); MCHC 33.8 g/dL (31.0-37.0); Mean Platelet Volume 7.3; Platelet Count 290 k/uL (150-450); RBC 3.83 m/uL (3.80-5.40); RDW 12.9 % (11.5-15.5); WBC 12.4 k/uL (3.8-10.6)
[2018-10-04 04:54] LABS: Glucose,Whole Blood 234 mg/dL (75-99)
[2018-10-04 05:05] LABS: ALT 26 U/L (9-52); AST 13 U/L (14-36); Albumin 3.3 g/dL (3.5-5.0); Alkaline Phosphatase 109 U/L (38-126); Anion Gap 12 mmol/L; Blood Urea Nitrogen 17 mg/dL (7-17); Calcium 8.8 mg/dL (8.4-10.2); Carbon Dioxide 13 mmol/L (22-30); Chloride 113 mmol/L (98-107); Glucose 257 mg/dL (74-99); Magnesium 1.7 mg/dL (1.6-2.3); Phosphorus 1.8 mg/dL (2.5-4.5); Sodium 138 mmol/L (137-145); Total Bilirubin 0.8 mg/dL (0.2-1.3); Total Protein 6.3 g/dL (6.3-8.2)
[2018-10-04] MEDS: D5-0.45% NACL WITH KCL 20MEQ/L 1,000 ML IV SCH ×3 (05:14→13:16)
[2018-10-04 05:17] LABS: VBG PH 7.29 (7.31-7.41)
[2018-10-04] MEDS ORDERED: Magnesium Replacement Protocol 1 EACH MISC MISCELLANE PRN (05:19)
[2018-10-04] MEDS: MAGNESIUM SULFATE-D5W PMX 1 GM in DEXTROSE/WATER 1 100ML.BAG IVPB SCH ×2 (05:51→06:13)
[2018-10-04 06:00] LABS: Glucose,Whole Blood 162 mg/dL (75-99)
[2018-10-04] MEDS ORDERED: NALOXONE 0.4 MG/ML 1 ML VIAL IV PRN (06:02)
[2018-10-04 07:06] LABS: Glucose,Whole Blood 160 mg/dL (75-99)
[2018-10-04 08:15] LABS: Glucose,Whole Blood 104 mg/dL (75-99)
[2018-10-04 09:05] LABS: Anion Gap 8 mmol/L; Blood Urea Nitrogen 14 mg/dL (7-17); Carbon Dioxide 16 mmol/L (22-30); Chloride 117 mmol/L (98-107); Glucose 104 mg/dL (74-99); Phosphorus 2.4 mg/dL (2.5-4.5); Potassium 3.8 mmol/L (3.5-5.1); Sodium 141 mmol/L (137-145)
[2018-10-04 09:14] LABS: Glucose,Whole Blood 77 mg/dL (75-99)
[2018-10-04] MEDS: ACETAMINOPHEN TAB 500 MG TAB PO PRN ×2 (09:32→21:30)
[2018-10-04 09:59] LABS: Glucose,Whole Blood 84 mg/dL (75-99)
[2018-10-04 11:03] LABS: Glucose,Whole Blood 121 mg/dL (75-99)
[2018-10-04 11:50] LABS: Glucose,Whole Blood 198 mg/dL (75-99)
--- NOTE | 2018-10-04 12:03 | P.HPIM ---
History of Present Illness This is a pleasant 23 years old female with past medical history of insulin- dependent diabetes mellitus, sepsis, migraine. Presents with nausea vomiting. Patient has a cast in her left ankle for about a month that she supposed to take it off on for a ligament injury. Yesterday she was trying to get into her car on icy weather when she slipped and fell on the back of her head, patient started complaining of from pain in the back of her neck and upper back , patient states she started having vomiting about 9-10 times which is usual to her whenever she hurts her back or head with pain. She confirms to me that she is insulin pump and her palm was working at that time however because of the recurrent vomiting probably her sugar went up, which causing vicious cycle of nausea and vomiting. And when she came to emergency room it looks like the patient was in DKA. on Admission patient was dehydrated and tachycardic. Blood pressure was on the low normal side. She has high sugar of 839 with carbon dioxide 9. Potassium 5.5 and creatinine 0.9 chest x-ray was normal. 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 CT of the cervical spine was negative. Patient was admitted to the ICU and treated with any insulin drip and IV fluids. Her repeat basic metabolic panel from this morning showing any gap of 8, compared to 25 on admission. Bicarbonate 13. Sugar 257. Low phosphorus is 1.8. Liver enzymes are not elevated. WBC 12.4 K. EKG: Showing sinus tachycardia. The patient in the ICU she was getting insulin drip at rate of 2 units per hour. Versed patient and Levemir, patient states to me she was taking Levemir when she was 16 before she switched to insulin pump. Of note patient has ALLERGIC to insulin glargine. An upper for the patient to do test, patient declined stating that she currently has control shots after she had her baby about 9 months ago. Risks benefits and alternatives are explained and she understands. Patient denies chest pain, no abdominal pain, no more nausea vomiting. She still have some back pain however her neck pain is resolved. No dizziness. No weakness or abnormal sensation or numbness Extremity. And on exam she has 5/5 strength in both lower extremities and upper extremities. No blurred vision. No difficulty swallowing Review of Systems CONSTITUTIONAL: No fever, no malaise, no fatigue. HEENT: No recent visual problems or hearing problems. Denied any sore throat. CARDIOVASCULAR: No orthopnea, PND, no palpitations, no syncope. PULMONARY: No shortness of breath, no cough, no hemoptysis. GASTROINTESTINAL: No diarrhea, no nausea, no vomiting, no abdominal pain. Normoactive bowel sounds. NEUROLOGICAL: No headaches, no weakness, no numbness. HEMATOLOGICAL: Denies any bleeding or petechiae. GENITOURINARY: Denies any burning micturition, frequency, or urgency. MUSCULOSKELETAL/RHEUMATOLOGICAL: Denies any joint pain, swelling, or any muscle pain. ENDOCRINE: Denies any polyuria or polydipsia. Past Medical History Past Medical History: Diabetes Mellitus, GERD/Reflux Additional Past Medical History / Comment(s): DIABETIC FOR 10 YEARS., INSULIN PUMP. pre-eclampsia with History of Any Multi-Drug Resistant Organisms: None Reported Past Surgical History: Breast Surgery, Section, Cholecystectomy Additional Past Surgical History / Comment(s): left breast surgery related to mastitis Past Anesthesia/Blood Transfusion Reactions: No Reported Reaction Additional Past Anesthesia/Blood Transfusion Reaction / Comment(s): PT HAS NEVER RECEIVED ANESTHESIA. Past Psychological History: No Psychological Hx Reported Smoking Status: Never smoker Past Alcohol Use History: None Reported Past Drug Use History: None Reported - Past Family History Mother Family Medical History: No Reported History Additional Family Medical History / Comment(s): Arthrisits, Medications and Allergies Home Medications Medication Instructions Recorded Confirmed Type Insulin Aspart (For Pump) [NovoLOG 0.01 dose SQ-PUMP CONTINUOUS 06/03/16 History (For Pump)] Allergies Allergy/AdvReac Type Severity Reaction Status Date / Time Fish Containing Products Allergy Unknown Rash/Hives, Verified 10/04/18 08:07 Swelling insulin glargine, human Allergy Unknown Burning Verified 10/04/18 08:07 recombin. a Sensation [From Lantus] Throughout sulfamethoxazole Allergy Unknown Swelling, Verified 10/04/18 08:07 [From Bactrim] Nausea & Vomiting trimethoprim [From Bactrim] Allergy Unknown Swelling, Verified 10/04/18 08:07 Nausea & Vomiting latex AdvReac Unknown PT HAS Verified 10/04/18 08:07 STRONG FAMILY HX OF LATEX ALLERGY. Physical Exam Vitals: Vital Signs Temp Pulse Resp BP BP Pulse Ox 10/04/18 10:00 107 H 16 136/71 98 10/04/18 09:30 110 H 15 98 10/04/18 09:00 107 H 14 98 10/04/18 08:30 111 H 15 97 10/04/18 08:00 97.5 F L 118 H 26 H 130/70 98 10/04/18 07:30 122 H 14 98 10/04/18 07:00 120 H 15 136/71 98 10/04/18 06:30 117 H 15 136/71 98 10/04/18 06:00 114 H 21 136/71 98 10/04/18 05:30 118 H 21 136/71 99 10/04/18 05:10 118 H 15 136/71 99 10/04/18 05:00 97.8 F 122 H 12 136/71 99 10/04/18 04:53 98 10/04/18 04:42 98.6 F 10/04/18 04:16 97.8 F 14 136/71 98 10/04/18 03:34 129 H 17 132/81 100 10/04/18 02:11 128 H 21 130/72 100 10/04/18 01:55 128 H 22 128/62 100 10/03/18 23:52 97.9 F 137 H 18 114/75 100 Intake and Output 10/03/18 10/04/18 10/04/18 22:59 06:59 14:59 Intake Total 340.31 323.853 Output Total 0 0 Balance 340.31 323.853 Intake: IV 300 300 D5-0.45% NaCl with KCl 300 300 20Meq/l 1,000 ml @ 150 mls/hr IV .[id number] [facility] Rx# :[id number] Intake, IV Titration 40.31 23.853 Amount Insulin Regular 100 unit 40.31 23.853 In Sodium Chloride 0.9% 100 ml @ 0.1 UNITS/KG/HR 8.7 mls/hr IV .[id number] [facility] Rx#:[id number] Output: Urine 0 0 Other: Weight 86.183 kg GENERAL: The patient is alert and oriented x3, not in any acute distress. Well developed, well nourished. HEENT: Pupils are round and equally reacting to light. EOMI. No scleral icterus. No conjunctival pallor. Normocephalic, atraumatic. No pharyngeal erythema. No thyromegaly. CARDIOVASCULAR: S1 and S2 present. No murmurs, rubs, or gallops. PULMONARY: Chest is clear to auscultation, no wheezing or crackles. ABDOMEN: Soft, nontender, nondistended, normoactive bowel sounds. No palpable organomegaly. -MUSCULOSKELETAL: No joint swelling or deformity. Mild upper back tenderness in the middle. -EXTREMITIES: No cyanosis, clubbing, or pedal edema. Left ankle cast NEUROLOGICAL: Gross neurological examination did not reveal any focal deficits. Motor: 5/5 in all 4 extremities, sensation: Intact in all 4 extremities with no numbness. Meningeal signs are absent SKIN: No rashes. Results CBC & Chem 7: 10/04/18 04:10 10/04/18 08:30 Labs: Abnormal Lab Results - Last 24 Hours (Table) 10/04/18 10/04/18 10/04/18 Range/Units 00:16 00:20 00:20 WBC (3.8-10.6) k/uL Hgb (11.4-16.0) gm/dL Hct (34.0-46.0) % MCHC 30.5 L (31.0-37.0) g/dL VBG pH (7.31-7.41) VBG pCO2 (37-51) mmHg VBG HCO3 (24-28) mmol/L Sodium 131 L (137-145) mmol/L Potassium 5.5 H (3.5-5.1) mmol/L Chloride 97 L (98-107) mmol/L Carbon Dioxide 9 L* (22-30) mmol/L BUN 19 H (7-17) mg/dL Glucose 839 H* (74-99) mg/dL POC Glucose (mg/dL) >600 H (75-99) mg/dL Phosphorus (2.5-4.5) mg/dL AST (14-36) U/L Alkaline Phosphatase 220 H (38-126) U/L Albumin (3.5-5.0) g/dL Urine Glucose (UA) (Negative) Urine Ketones (Negative) 10/04/18 10/04/18 10/04/18 Range/Units 00:20 01:51 03:19 WBC (3.8-10.6) k/uL Hgb (11.4-16.0) gm/dL Hct (34.0-46.0) % MCHC (31.0-37.0) g/dL VBG pH (7.31-7.41) VBG pCO2 (37-51) mmHg VBG HCO3 (24-28) mmol/L Sodium (137-145) mmol/L Potassium (3.5-5.1) mmol/L Chloride (98-107) mmol/L Carbon Dioxide (22-30) mmol/L BUN (7-17) mg/dL Glucose (74-99) mg/dL POC Glucose (mg/dL) >600 H 377 H (75-99) mg/dL Phosphorus (2.5-4.5) mg/dL AST (14-36) U/L Alkaline Phosphatase (38-126) U/L Albumin (3.5-5.0) g/dL Urine Glucose (UA) 4+ H (Negative) Urine Ketones 4+ H (Negative) 10/04/18 10/04/18 10/04/18 Range/Units 03:59 04:10 04:10 WBC 12.4 H (3.8-10.6) k/uL Hgb 11.0 L (11.4-16.0) gm/dL Hct 32.6 L (34.0-46.0) % MCHC (31.0-37.0) g/dL VBG pH (7.31-7.41) VBG pCO2 (37-51) mmHg VBG HCO3 (24-28) mmol/L Sodium (137-145) mmol/L Potassium (3.5-5.1) mmol/L Chloride 113 H (98-107) mmol/L Carbon Dioxide 13 L (22-30) mmol/L BUN (7-17) mg/dL Glucose 257 H (74-99) mg/dL POC Glucose (mg/dL) 281 H (75-99) mg/dL Phosphorus 1.8 L (2.5-4.5) mg/dL AST 13 L (14-36) U/L Alkaline Phosphatase (38-126) U/L Albumin 3.3 L (3.5-5.0) g/dL Urine Glucose (UA) (Negative) Urine Ketones (Negative) 10/04/18 10/04/18 10/04/18 Range/Units 04:42 04:52 05:05 WBC (3.8-10.6) k/uL Hgb (11.4-16.0) gm/dL Hct (34.0-46.0) % MCHC (31.0-37.0) g/dL VBG pH 7.29 L (7.31-7.41) VBG pCO2 23 L (37-51) mmHg VBG HCO3 11 L (24-28) mmol/L Sodium (137-145) mmol/L Potassium (3.5-5.1) mmol/L Chloride (98-107) mmol/L Carbon Dioxide (22-30) mmol/L BUN (7-17) mg/dL Glucose (74-99) mg/dL POC Glucose (mg/dL) 247 H 234 H (75-99) mg/dL Phosphorus (2.5-4.5) mg/dL AST (14-36) U/L Alkaline Phosphatase (38-126) U/L Albumin (3.5-5.0) g/dL Urine Glucose (UA) (Negative) Urine Ketones (Negative) 10/04/18 10/04/18 10/04/18 Range/Units 05:59 07:04 08:13 WBC (3.8-10.6) k/uL Hgb (11.4-16.0) gm/dL Hct (34.0-46.0) % MCHC (31.0-37.0) g/dL VBG pH (7.31-7.41) VBG pCO2 (37-51) mmHg VBG HCO3 (24-28) mmol/L Sodium (137-145) mmol/L Potassium (3.5-5.1) mmol/L Chloride (98-107) mmol/L Carbon Dioxide (22-30) mmol/L BUN (7-17) mg/dL Glucose (74-99) mg/dL POC Glucose (mg/dL) 162 H 160 H 104 H (75-99) mg/dL Phosphorus (2.5-4.5) mg/dL AST (14-36) U/L Alkaline Phosphatase (38-126) U/L Albumin (3.5-5.0) g/dL Urine Glucose (UA) (Negative) Urine Ketones (Negative) 10/04/18 10/04/18 Range/Units 08:30 11:01 WBC (3.8-10.6) k/uL Hgb (11.4-16.0) gm/dL Hct (34.0-46.0) % MCHC (31.0-37.0) g/dL VBG pH (7.31-7.41) VBG pCO2 (37-51) mmHg VBG HCO3 (24-28) mmol/L Sodium (137-145) mmol/L Potassium (3.5-5.1) mmol/L Chloride 117 H (98-107) mmol/L Carbon Dioxide 16 L (22-30) mmol/L BUN (7-17) mg/dL Glucose 104 H (74-99) mg/dL POC Glucose (mg/dL) 121 H (75-99) mg/dL Phosphorus 2.4 L (2.5-4.5) mg/dL AST (14-36) U/L Alkaline Phosphatase (38-126) U/L Albumin (3.5-5.0) g/dL Urine Glucose (UA) (Negative) Urine Ketones (Negative) Thrombosis Risk Factor Assmnt - Choose All That Apply Any of the Below Risk Factors Present?: No Other Risk Factors: No Other congenital or acquired thrombophilia - If yes, enter type in comment: No Thrombosis Risk Factor Assessment Level: Very Low Risk Assessment and Plan Assessment: Diabetic ketoacidosis, and Closed Insulin-dependent diabetes mellitus, was on insulin pump prior to admission Recurrent nausea and vomiting, resolved Injury to left ankle ligaments, status post cast of 1 month duration Mechanical fall with no dizziness Neck pain and back pain secondary to fall, improving Recent , give to 9 month years old infant. 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 To her sugar. Symptomatic treatment. Pain treatment. Labs and medication were reviewed.. Continue same treatment. Continue with symptomatic treatment. Resume home medication. Monitor lytes and vitals. DVT and GI prophylaxis. Further recommendations of the clinical course of the patient DVT prophylaxis: Subcutaneous heparin GI Prophylaxis: Pepcid Prognosis is guarded
[2018-10-04] MEDS: INSULIN ASPART (NovoLOG) 100 UNIT/ML VIAL SQ SCH ×4 (12:15→21:10)
--- NOTE | 2018-10-04 12:27 | P.CNPUL ---
History of Present Illness Consult date: 10/04/18 Requesting physician: Mike Faulkner Reason for consult: other (acute diabetic ketoacidosis) Chief complaint: nausea and vomiting, back pain History of present illness: this is a 23-year-old female with history of type 1 diabetes, insulin-dependent , normally has an insulin pump. Patient presented to the ER after she slipped on ice and she fell backwards injuring her back and head. She developed significant pain in her upper spine, she also developed nausea and vomiting, and some vague abdominal discomfort. Patient was brought into the ER and she was noted to have extremely elevated blood sugar, positive ketones, significant anion gap metabolic acidosis. Patient was diagnosed as having diabetic ketoacidosis and she was admitted to the ICU. Placed on the protocol for diabetic ketoacidosis, and seems to be doing better over the last 12 hours since admission. During my evaluation, the patient was receiving insulin at 4 units per hour, her anion gap has been closing nicely,CT of the head, cervical spine was negative.labs today showed her blood sugar is down to 257, it was 839 on admission. Her on iron gap was noted to be 12 and her renal profile is normal. Bicarb is up to 13 considering it was 9 on admission. Patient is not complaining of nausea and vomiting at this point, she is complaining of back pain related to her recent fall when she slipped on ice. Review of Systems CONSTITUTIONAL: no fever no chills no weight loss.. HEENT: no sore throat, no earache, no blurred vision. CARDIOVASCULAR: no chest pain no palpitations no diaphoresis.. PULMONARY: no shortness of breath no cough no wheezing no hemoptysis. GASTROINTESTINAL: nausea and vomiting upon presentation, presently asymptomatic. NEUROLOGICAL: back pain secondary to recent fall otherwise unremarkable. HEMATOLOGICAL:no clotting bleeding or bruising GENITOURINARY:no dysuria frequency or urgency MUSCULOSKELETAL/RHEUMATOLOGICAL: Dback pain mostly over the thoracic and cervical spine. Psychiatric: No symptoms of active depression. Past Medical History Past Medical History: Diabetes Mellitus, GERD/Reflux Additional Past Medical History / Comment(s): DIABETIC FOR 10 YEARS., INSULIN PUMP. pre-eclampsia with History of Any Multi-Drug Resistant Organisms: None Reported Past Surgical History: Breast Surgery, Section, Cholecystectomy Additional Past Surgical History / Comment(s): left breast surgery related to mastitis Past Anesthesia/Blood Transfusion Reactions: No Reported Reaction Additional Past Anesthesia/Blood Transfusion Reaction / Comment(s): PT HAS NEVER RECEIVED ANESTHESIA. Past Psychological History: No Psychological Hx Reported Smoking Status: Never smoker Past Alcohol Use History: None Reported Past Drug Use History: None Reported - Past Family History Mother Family Medical History: No Reported History Additional Family Medical History / Comment(s): Arthrisits, Medications and Allergies Home Medications Medication Instructions Recorded Confirmed Type Insulin Aspart (For Pump) [NovoLOG 0.01 dose SQ-PUMP CONTINUOUS 06/03/16 History (For Pump)] Allergies Allergy/AdvReac Type Severity Reaction Status Date / Time Fish Containing Products Allergy Unknown Rash/Hives, Verified 10/04/18 08:07 Swelling insulin glargine, human Allergy Unknown Burning Verified 10/04/18 08:07 recombin. a Sensation [From Lantus] Throughout sulfamethoxazole Allergy Unknown Swelling, Verified 10/04/18 08:07 [From Bactrim] Nausea & Vomiting trimethoprim [From Bactrim] Allergy Unknown Swelling, Verified 10/04/18 08:07 Nausea & Vomiting latex AdvReac Unknown PT HAS Verified 10/04/18 08:07 STRONG FAMILY HX OF LATEX ALLERGY. Physical Exam Vitals: Vital Signs Temp Pulse Resp BP BP Pulse Ox 10/04/18 10:00 107 H 16 136/71 98 10/04/18 09:30 110 H 15 98 10/04/18 09:00 107 H 14 98 10/04/18 08:30 111 H 15 97 10/04/18 08:00 97.5 F L 118 H 26 H 130/70 98 10/04/18 07:30 122 H 14 98 10/04/18 07:00 120 H 15 136/71 98 10/04/18 06:30 117 H 15 136/71 98 10/04/18 06:00 114 H 21 136/71 98 10/04/18 05:30 118 H 21 136/71 99 10/04/18 05:10 118 H 15 136/71 99 10/04/18 05:00 97.8 F 122 H 12 136/71 99 10/04/18 04:53 98 10/04/18 04:42 98.6 F 10/04/18 04:16 97.8 F 14 136/71 98 10/04/18 03:34 129 H 17 132/81 100 02/17/19 02:11 128 H 21 130/72 100 10/04/18 01:55 128 H 22 128/62 100 10/03/18 23:52 97.9 F 137 H 18 114/75 100 Intake and Output 10/03/18 10/04/18 10/04/18 22:59 06:59 14:59 Intake Total 340.31 323.853 Output Total 0 0 Balance 340.31 323.853 Intake: IV 300 300 D5-0.45% NaCl with KCl 300 300 20Meq/l 1,000 ml @ 150 mls/hr IV .Q6H40M [facility] Rx# :[id number] Intake, IV Titration 40.31 23.853 Amount Insulin Regular 100 unit 40.31 23.853 In Sodium Chloride 0.9% 100 ml @ 0.1 UNITS/KG/HR 8.7 mls/hr IV .[id number] [facility] Rx#:[id number] Output: Urine 0 0 Other: Weight 86.183 kg Physical Exam: Revealed a 23-year-old female pleasant, in no distress. Head: Atraumatic normocephalic. HEENT:[Neck is supple.] [No neck masses.] [No thyromegaly.] [No JVD.] Chest: [Clear throughout, no crackles, no rhonchi, no wheezes.] Cardiac Exam: [Normal S1 and S2, no S3 gallop, no murmur.] Abdomen: [Soft, nontender, no megaly, no rebound, no guarding, normal bowel sounds.] Extremities: [No clubbing, no edema, no cyanosis.]left ankle cast is noted, been there for over a month, [facility] injury but no fracture Neurological Exam: [No focal neurologic deficit.]alert oriented 3. Psychiatric: Normal mood affect and mental status examination. Skin: No rashes. Results - Laboratory Findings CBC and BMP: 10/04/18 04:10 10/04/18 08:30 PT/INR, D-dimer PT 9.5 sec (9.0-12.0) 10/04/18 00:20 INR 0.9 (<1.2) 10/04/18 00:20 Abnormal lab findings: Abnormal Labs 10/04/18 10/04/18 10/04/18 00:16 00:20 00:20 WBC Hgb Hct MCHC 30.5 L VBG pH VBG pCO2 VBG HCO3 Sodium 131 L Potassium 5.5 H Chloride 97 L Carbon Dioxide 9 L* BUN 19 H Glucose 839 H* POC Glucose (mg/dL) >600 H Phosphorus AST Alkaline Phosphatase 220 H Albumin Urine Glucose (UA) Urine Ketones 10/04/18 10/04/18 10/04/18 00:20 01:51 03:19 WBC Hgb Hct MCHC VBG pH VBG pCO2 VBG HCO3 Sodium Potassium Chloride Carbon Dioxide BUN Glucose POC Glucose (mg/dL) >600 H 377 H Phosphorus AST Alkaline Phosphatase Albumin Urine Glucose (UA) 4+ H Urine Ketones 4+ H 10/04/18 10/04/18 10/04/18 03:59 04:10 04:10 WBC 12.4 H Hgb 11.0 L Hct 32.6 L MCHC VBG pH VBG pCO2 VBG HCO3 Sodium Potassium Chloride 113 H Carbon Dioxide 13 L BUN Glucose 257 H POC Glucose (mg/dL) 281 H Phosphorus 1.8 L AST 13 L Alkaline Phosphatase Albumin 3.3 L Urine Glucose (UA) Urine Ketones 10/04/18 10/04/18 10/04/18 04:42 04:52 05:05 WBC Hgb Hct MCHC VBG pH 7.29 L VBG pCO2 23 L VBG HCO3 11 L Sodium Potassium Chloride Carbon Dioxide BUN Glucose POC Glucose (mg/dL) 247 H 234 H Phosphorus AST Alkaline Phosphatase Albumin Urine Glucose (UA) Urine Ketones 10/04/18 10/04/18 10/04/18 05:59 07:04 08:13 WBC Hgb Hct MCHC VBG pH VBG pCO2 VBG HCO3 Sodium Potassium Chloride Carbon Dioxide BUN Glucose POC Glucose (mg/dL) 162 H 160 H 104 H Phosphorus AST Alkaline Phosphatase Albumin Urine Glucose (UA) Urine Ketones 10/04/18 10/04/18 10/04/18 08:30 11:01 11:49 WBC Hgb Hct MCHC VBG pH VBG pCO2 VBG HCO3 Sodium Potassium Chloride 117 H Carbon Dioxide 16 L BUN Glucose 104 H POC Glucose (mg/dL) 121 H 198 H Phosphorus 2.4 L AST Alkaline Phosphatase Albumin Urine Glucose (UA) Urine Ketones - Diagnostic Findings Chest x-ray: image reviewed (normal chest) Additional studies: CT of the head and cervical spine noted to be negative. Assessment and Plan Assessment: impression: 1 acute diabetic ketoacidosis, presently on the protocol, responding well to treatment, and anion gap seems to be closing nicely. 2 insulin dependent diabetes, normally on insulin pump. 3 status post fall and back injury, workup including CT of the spine has been negative. Pain seems to be mostly musculoskeletal and cervical as well as thoracic spine strain. 4 history of left ankle injury, cast in place. Recommendation: I fully agree with the present treatment plan, continue to follow the protocol for the treatment of her diabetic ketoacidosis, pain meds for her back pain, consider transfer the patient today to a regular medical floor sometime this afternoon once she is off insulin drip. We will follow the patient on when necessary basis once she is out of the ICU. Time with Patient: Greater than 30
[2018-10-04 13:10] LABS: Glucose,Whole Blood 244 mg/dL (75-99)
[2018-10-04] MEDS: INSULIN DETEMIR (LEVEMIR) 100 UNIT/ML SYR SQ SCH ×2 (13:13→21:11)
[2018-10-04] MEDS ORDERED: DEXTROSE 50%-WATER 50 ML SYRINGE IVP PRN (14:54)
[2018-10-04 14:55] LABS: Glucose,Whole Blood 224 mg/dL (75-99)
[2018-10-04 17:25] LABS: Glucose,Whole Blood 269 mg/dL (75-99)
[2018-10-04 20:28] LABS: Glucose,Whole Blood 312 mg/dL (75-99)
[2018-10-04] MEDS: HEPARIN SODIUM,PORCINE 5,000 UNIT/ML 1 ML VIAL SQ SCH (21:15)
[2018-10-04] MEDS: FAMOTIDINE 20 MG/2 ML VIAL IV SCH (21:15)
[2018-10-04] MEDS ORDERED: INSULIN DETEMIR (LEVEMIR) 100 UNIT/ML SYR SQ ONE (22:05)
[2018-10-05 06:39] LABS: Glucose,Whole Blood 245 mg/dL (75-99)
[2018-10-05] MEDS: INSULIN ASPART (NovoLOG) 100 UNIT/ML VIAL SQ SCH ×4 (06:45→21:31)
[2018-10-05] MEDS: HYDROcodone/APAP 5-325MG 1 EACH TAB PO PRN (06:45)
[2018-10-05 07:26] LABS: HCT 33.3 % (34.0-46.0); HGB 10.8 gm/dL (11.4-16.0); MCH 27.7 pg (25.0-35.0); MCHC 32.4 g/dL (31.0-37.0); MCV 85.5 fL (80.0-100.0); Mean Platelet Volume 7.2; Platelet Count 259 k/uL (150-450); RDW 13.2 % (11.5-15.5); WBC 6.3 k/uL (3.8-10.6)
[2018-10-05 07:36] LABS: ALT 26 U/L (9-52); AST 14 U/L (14-36); Albumin 2.8 g/dL (3.5-5.0); Alkaline Phosphatase 79 U/L (38-126); Anion Gap 3 mmol/L; Blood Urea Nitrogen 10 mg/dL (7-17); Calcium 8.7 mg/dL (8.4-10.2); Carbon Dioxide 21 mmol/L (22-30); Chloride 113 mmol/L (98-107); Glucose 257 mg/dL (74-99); Magnesium 1.6 mg/dL (1.6-2.3); Phosphorus 3.1 mg/dL (2.5-4.5); Potassium 4.3 mmol/L (3.5-5.1); Sodium 137 mmol/L (137-145); Total Bilirubin 0.4 mg/dL (0.2-1.3); Total Protein 5.7 g/dL (6.3-8.2)
[2018-10-05] MEDS ORDERED: INSULIN DETEMIR (LEVEMIR) 100 UNIT/ML SYR SQ ONE ×2 (08:30→18:08)
[2018-10-05] MEDS: HEPARIN SODIUM,PORCINE 5,000 UNIT/ML 1 ML VIAL SQ SCH ×2 (08:57→21:30)
[2018-10-05] MEDS: FAMOTIDINE 20 MG/2 ML VIAL IV SCH (09:06)
[2018-10-05] MEDS: CYCLOBENZAPRINE 5 MG TAB PO SCH ×3 (09:27→21:31)
--- NOTE | 2018-10-05 10:38 | XR ---
EXAMINATION TYPE: XR shoulder complete RT DATE OF EXAM: 10/05/2018 COMPARISON: NONE HISTORY: Pain following fall TECHNIQUE: Shoulder examined in 3 projection FINDINGS: The humeral head articulates with the glenoid. The acromio-clavicular junction is normal. No acute fractures or dislocations are evident. A follow up study can be performed 7-10 days from acute trauma for continued pain. IMPRESSION: 1. Normal three-view right Shoulder
[2018-10-05 12:07] LABS: Glucose,Whole Blood 303 mg/dL (75-99)
[2018-10-05 13:50] VITALS: BMI 29.7
[2018-10-05 17:36] LABS: Glucose,Whole Blood 275 mg/dL (75-99)
[2018-10-05] MEDS ORDERED: INSULIN DETEMIR (LEVEMIR) 100 UNIT/ML SYR SQ SCH ×3 (21:00)
[2018-10-05 21:14] LABS: Glucose,Whole Blood 330 mg/dL (75-99)
[2018-10-05] MEDS: FAMOTIDINE 20 MG TAB PO SCH (21:31)
--- NOTE | 2018-10-05 23:49 | P.PN ---
Subjective This is a pleasant 23 years old female with past medical history of insulin- dependent diabetes mellitus, sepsis, migraine. Presents with nausea vomiting. Patient has a cast in her left ankle for about a month that she supposed to take it off on for a ligament injury. Yesterday she was trying to get into her car on icy weather when she slipped and fell on the back of her head, patient started complaining of from pain in the back of her neck and upper back , patient states she started having vomiting about 9-10 times which is usual to her whenever she hurts her back or head with pain. She confirms to me that she is insulin pump and her palm was working at that time however because of the recurrent vomiting probably her sugar went up, which causing vicious cycle of nausea and vomiting. And when she came to emergency room it looks like the patient was in DKA. on Admission patient was dehydrated and tachycardic. Blood pressure was on the low normal side. She has high sugar of 839 with carbon dioxide 9. Potassium 5.5 and creatinine 0.9 chest x-ray was normal. 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 CT of the cervical spine was negative. Patient was admitted to the ICU and treated with any insulin drip and IV fluids. Her repeat basic metabolic panel from this morning showing any gap of 8, compared to 25 on admission. Bicarbonate 13. Sugar 257. Low phosphorus is 1.8. Liver enzymes are not elevated. WBC 12.4 K. EKG: Showing sinus tachycardia. The patient in the ICU she was getting insulin drip at rate of 2 units per hour. Versed patient and Levemir, patient states to me she was taking Levemir when she was 16 before she switched to insulin pump. Of note patient has ALLERGIC to insulin glargine. An upper for the patient to do test, patient declined stating that she currently has control shots after she had her baby about 9 months ago. Risks benefits and alternatives are explained and she understands. Patient denies chest pain, no abdominal pain, no more nausea vomiting. She still have some back pain however her neck pain is resolved. No dizziness. No weakness or abnormal sensation or numbness Extremity. And on exam she has 5/5 strength in both lower extremities and upper extremities. No blurred vision. No difficulty swallowing 10/05/2018 pt is still complaining from right shoulder pain , xray order, staff tried to make appointment with neurology office. as per staff they were advised to call hem/onc team for evaluation of abn CT head. pt sugar is still uncotrolled. levemir is increased 20 to 30 HS. ( pt agrees to hold inuslin pump now and c/w levemir upon discharge) Objective - Vital Signs Vital signs: Vital Signs Temp 98.1 F 10/05/18 20:04 Pulse 84 10/05/18 20:04 Resp 16 10/05/18 20:04 BP 123/85 10/05/18 20:04 Pulse Ox 98 10/05/18 20:04 Intake & Output 10/05/18 10/05/18 10/06/18 06:59 18:59 06:59 Intake Total 250 1000 600 Output Total 900 400 Balance -650 600 600 Weight 86.183 kg Intake: Oral 250 1000 600 Output: Urine 900 400 Other: Voiding Method Toilet Toilet # Voids 1 1 2 - Exam GENERAL: The patient is alert and oriented x3, not in any acute distress. Well developed, well nourished. HEENT: Pupils are round and equally reacting to light. EOMI. No scleral icterus. No conjunctival pallor. Normocephalic, atraumatic. No pharyngeal erythema. No thyromegaly. CARDIOVASCULAR: S1 and S2 present. No murmurs, rubs, or gallops. PULMONARY: Chest is clear to auscultation, no wheezing or crackles. ABDOMEN: Soft, nontender, nondistended, normoactive bowel sounds. No palpable organomegaly. MUSCULOSKELETAL: No joint swelling or deformity. EXTREMITIES: No cyanosis, clubbing, or pedal edema. NEUROLOGICAL: Gross neurological examination did not reveal any focal deficits. SKIN: No rashes. - Labs CBC & Chem 7: 10/05/18 06:47 10/05/18 06:47 Labs: Abnormal Lab Results - Last 24 Hours (Table) 10/05/18 10/05/18 10/05/18 Range/Units 06:38 06:47 06:47 Hgb 10.8 L (11.4-16.0) gm/dL Hct 33.3 L (34.0-46.0) % Chloride 113 H (98-107) mmol/L Carbon Dioxide 21 L (22-30) mmol/L Glucose 257 H (74-99) mg/dL POC Glucose (mg/dL) 245 H (75-99) mg/dL Total Protein 5.7 L (6.3-8.2) g/dL Albumin 2.8 L (3.5-5.0) g/dL 10/05/18 10/05/18 10/05/18 Range/Units 12:01 17:34 21:11 Hgb (11.4-16.0) gm/dL Hct (34.0-46.0) % Chloride (98-107) mmol/L Carbon Dioxide (22-30) mmol/L Glucose (74-99) mg/dL POC Glucose (mg/dL) 303 H 275 H 330 H (75-99) mg/dL Total Protein (6.3-8.2) g/dL Albumin (3.5-5.0) g/dL Assessment and Plan Assessment: Diabetic ketoacidosis, and Closed Insulin-dependent diabetes mellitus, was on insulin pump prior to admission Recurrent nausea and vomiting, resolved Injury to left ankle ligaments, status post cast of 1 month duration Mechanical fall with no dizziness Neck pain and back pain secondary to fall, improving Recent , give to 9 month years old infant. 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 To her sugar. Symptomatic treatment. Pain treatment. Labs and medication were reviewed.. Continue same treatment. Continue with symptomatic treatment. Resume home medication. Monitor lytes and vitals. DVT and GI prophylaxis. Further recommendations of the clinical course of the patient DVT prophylaxis: Subcutaneous heparin GI Prophylaxis: Pepcid Prognosis is guarded
[2018-10-06 07:38] LABS: Glucose,Whole Blood 75 mg/dL (75-99)
[2018-10-06] MEDS: HYDROcodone/APAP 5-325MG 1 EACH TAB PO PRN ×3 (07:59→21:44)
[2018-10-06] MEDS: FAMOTIDINE 20 MG TAB PO SCH ×2 (08:00→21:30)
[2018-10-06] MEDS: CYCLOBENZAPRINE 5 MG TAB PO SCH ×3 (08:00→21:30)
[2018-10-06] MEDS: HEPARIN SODIUM,PORCINE 5,000 UNIT/ML 1 ML VIAL SQ SCH ×2 (08:00→21:30)
[2018-10-06] MEDS: INSULIN ASPART (NovoLOG) 100 UNIT/ML VIAL SQ SCH ×4 (08:59→21:29)
[2018-10-06 09:32] LABS: Anion Gap 9 mmol/L; Blood Urea Nitrogen 7 mg/dL (7-17); Calcium 9.3 mg/dL (8.4-10.2); Carbon Dioxide 24 mmol/L (22-30); Chloride 109 mmol/L (98-107); Glucose 92 mg/dL (74-99); Phosphorus 3.6 mg/dL (2.5-4.5); Potassium 3.5 mmol/L (3.5-5.1); Sodium 142 mmol/L (137-145)
--- NOTE | 2018-10-06 11:22 | P.CNOR ---
History of Present Illness - [facility] Consult date: 10/06/18 Requesting physician: Clem Lopez Consult reason: joint pain History of present illness: Patient is a 23-year-old female seen at bedside this morning in consultation for right shoulder pain. She states she fell on the ice this past Friday, 10/04 and landed on her right shoulder. She has pain in the area of the right shoulder with range of motion elevation to a certain point. She denies numbness or tingling or radicular symptoms. She has no other complaints. Review of Systems All systems: negative Past Medical History Past Medical History: Diabetes Mellitus, GERD/Reflux Additional Past Medical History / Comment(s): DIABETIC FOR 10 YEARS., INSULIN PUMP. pre-eclampsia with History of Any Multi-Drug Resistant Organisms: None Reported Past Surgical History: Breast Surgery, Section, Cholecystectomy Additional Past Surgical History / Comment(s): left breast surgery related to mastitis Past Anesthesia/Blood Transfusion Reactions: No Reported Reaction Additional Past Anesthesia/Blood Transfusion Reaction / Comm: PT HAS NEVER RECEIVED ANESTHESIA. Past Psychological History: No Psychological Hx Reported Smoking Status: Never smoker Past Alcohol Use History: None Reported Past Drug Use History: None Reported - Past Family History Mother Family Medical History: No Reported History Additional Family Medical History / Comment(s): Arthrisits, Medications and Allergies Home Medications Medication Instructions Recorded Confirmed Type Insulin Aspart (For Pump) [NovoLOG 0.01 dose SQ-PUMP CONTINUOUS 06/03/16 History (For Pump)] Allergies Allergy/AdvReac Type Severity Reaction Status Date / Time Fish Containing Products Allergy Unknown Rash/Hives, Verified 10/04/18 08:07 Swelling insulin glargine, human Allergy Unknown Burning Verified 10/04/18 08:07 recombin. a Sensation [From Lantus] Throughout sulfamethoxazole Allergy Unknown Swelling, Verified 10/04/18 08:07 [From Bactrim] Nausea & Vomiting trimethoprim [From Bactrim] Allergy Unknown Swelling, Verified 10/04/18 08:07 Nausea & Vomiting latex AdvReac Unknown PT HAS Verified 10/04/18 08:07 STRONG FAMILY HX OF LATEX ALLERGY. Physical Examination Inspection of the right shoulder is benign. There is no deformity. There is no erythema, edema or ecchymoses. There are no wounds. She is tender to palpation about the shoulder joint and acromioclavicular joint. It is not hot to touch. Motor is fully intact throughout the right upper extremity as well as sensation to light touch. She has pain with active forward elevation and 90 . She has pain with abduction to 90. Negative Davila. Mildly positive Neer' s test. No pain with internal rotation to 40 and external rotation of 30. Strength is limited to pain but no definitive weakness is appreciated. 2+ radial pulse present as well as less than 2 second capillary refill. Results X-rays of the right shoulder reviewed and show that the glenohumeral joint is located. There is no definitive fracture. Essentially normal x-ray. - Labs Labs: Abnormal Lab Results - Last 24 Hours (Table) 10/05/18 10/05/18 10/05/18 Range/Units 12:01 17:34 21:11 Chloride (98-107) mmol/L POC Glucose (mg/dL) 303 H 275 H 330 H (75-99) mg/dL 10/06/18 Range/Units 08:42 Chloride 109 H (98-107) mmol/L POC Glucose (mg/dL) (75-99) mg/dL H & H 10/04/18 10/04/18 10/05/18 Range/Units 00:20 04:10 06:47 Hgb 12.4 11.0 L 10.8 L (11.4-16.0) gm/dL Hct 40.6 32.6 L 33.3 L (34.0-46.0) % Coagulation 10/04/18 Range/Units 00:20 INR 0.9 (<1.2) Result Diagrams: 10/05/18 06:47 10/06/18 08:42 - Diagnostic results Shoulder x-ray: report reviewed, image reviewed Assessment and Plan (1) Shoulder pain, right Narrative/Plan: ThepPatient's x-rays are essentially normal and along with her clinical exam being relatively benign there are no plans for immediate surgical intervention. I've recommended using anti-inflammatories as directed and if okay with primary team, along with ice and rest. She may follow up in our office in 1 week. If she is not improving, further testing may be warranted including MRI of the right shoulder. Thank you Current Visit: Yes Status: Acute Code(s): M25.511 - PAIN IN RIGHT SHOULDER SNOMED Code(s): 43372207 Time with Patient: Less than 30
[2018-10-06 12:06] LABS: Glucose,Whole Blood 231 mg/dL (75-99)
[2018-10-06 17:00] LABS: Glucose,Whole Blood 344 mg/dL (75-99)
[2018-10-06] MEDS ORDERED: INSULIN DETEMIR (LEVEMIR) 100 UNIT/ML SYR SQ ONE (19:00)
[2018-10-06] MEDS ORDERED: INSULIN DETEMIR (LEVEMIR) 100 UNIT/ML SYR SQ SCH ×2 (21:00)
[2018-10-06 21:06] LABS: Glucose,Whole Blood 348 mg/dL (75-99)
--- NOTE | 2018-10-06 21:56 | P.PN ---
Subjective This is a pleasant 23 years old female with past medical history of insulin- dependent diabetes mellitus, sepsis, migraine. Presents with nausea vomiting. Patient has a cast in her left ankle for about a month that she supposed to take it off on for a ligament injury. Yesterday she was trying to get into her car on icy weather when she slipped and fell on the back of her head, patient started complaining of from pain in the back of her neck and upper back , patient states she started having vomiting about 9-10 times which is usual to her whenever she hurts her back or head with pain. She confirms to me that she is insulin pump and her palm was working at that time however because of the recurrent vomiting probably her sugar went up, which causing vicious cycle of nausea and vomiting. And when she came to emergency room it looks like the patient was in DKA. on Admission patient was dehydrated and tachycardic. Blood pressure was on the low normal side. She has high sugar of 839 with carbon dioxide 9. Potassium 5.5 and creatinine 0.9 chest x-ray was normal. 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 CT of the cervical spine was negative. Patient was admitted to the ICU and treated with any insulin drip and IV fluids. Her repeat basic metabolic panel from this morning showing any gap of 8, compared to 25 on admission. Bicarbonate 13. Sugar 257. Low phosphorus is 1.8. Liver enzymes are not elevated. WBC 12.4 K. EKG: Showing sinus tachycardia. The patient in the ICU she was getting insulin drip at rate of 2 units per hour. Versed patient and Levemir, patient states to me she was taking Levemir when she was 16 before she switched to insulin pump. Of note patient has ALLERGIC to insulin glargine. An upper for the patient to do test, patient declined stating that she currently has control shots after she had her baby about 9 months ago. Risks benefits and alternatives are explained and she understands. Patient denies chest pain, no abdominal pain, no more nausea vomiting. She still have some back pain however her neck pain is resolved. No dizziness. No weakness or abnormal sensation or numbness Extremity. And on exam she has 5/5 strength in both lower extremities and upper extremities. No blurred vision. No difficulty swallowing 10/05/2018 pt is still complaining from right shoulder pain , xray order, staff tried to make appointment with neurology office. as per staff they were advised to call hem/onc team for evaluation of abn CT head. pt sugar is still uncotrolled. levemir is increased 20 to 30 HS. ( pt agrees to hold inuslin pump now and c/w levemir upon discharge) 10/06/2018 pt still with right shoulder pain , with some restriction of movement, ortho consult is appreciated , they recommended , NSAIDs and follow up in one week , if no resolution then to consider MRI of the shoulder. pt sugar is low in am and high in afternoon. we will lower levemir at night to 20 U and start levemir 15 U in am. pt agrees. pt has abnormal ct of the brain with left frontal calvarium , consult hematology in am Objective - Vital Signs Vital signs: Vital Signs Temp 98.1 F 10/06/18 20:01 Pulse 89 10/06/18 20:01 Resp 16 10/06/18 20:01 BP 149/95 10/06/18 20:01 Pulse Ox 99 10/06/18 20:01 Intake & Output 10/06/18 10/06/18 10/07/18 06:59 18:59 06:59 Intake Total 840 Balance 840 Intake: Oral 840 Other: Voiding Method Toilet # Voids 1 2 - Exam GENERAL: The patient is alert and oriented x3, not in any acute distress. Well developed, well nourished. HEENT: Pupils are round and equally reacting to light. EOMI. No scleral icterus. No conjunctival pallor. Normocephalic, atraumatic. No pharyngeal erythema. No thyromegaly. CARDIOVASCULAR: S1 and S2 present. No murmurs, rubs, or gallops. PULMONARY: Chest is clear to auscultation, no wheezing or crackles. ABDOMEN: Soft, nontender, nondistended, normoactive bowel sounds. No palpable organomegaly. MUSCULOSKELETAL: No joint swelling or deformity. EXTREMITIES: No cyanosis, clubbing, or pedal edema. NEUROLOGICAL: Gross neurological examination did not reveal any focal deficits. SKIN: No rashes. - Labs CBC & Chem 7: 10/05/18 06:47 10/06/18 08:42 Labs: Abnormal Lab Results - Last 24 Hours (Table) 10/06/18 10/06/18 10/06/18 Range/Units 08:42 12:03 16:58 Chloride 109 H (98-107) mmol/L POC Glucose (mg/dL) 231 H 344 H (75-99) mg/dL 10/06/18 Range/Units 21:03 Chloride (98-107) mmol/L POC Glucose (mg/dL) 348 H (75-99) mg/dL Assessment and Plan Assessment: Diabetic ketoacidosis, and Closed Insulin-dependent diabetes mellitus, was on insulin pump prior to admission Recurrent nausea and vomiting, resolved Injury to left ankle ligaments, status post cast of 1 month duration Mechanical fall with no dizziness Neck pain and back pain secondary to fall, improving Recent , give to 9 month years old . 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 To her sugar. Symptomatic treatment. Pain treatment. Labs and medication were reviewed.. Continue same treatment. Continue with symptomatic treatment. Resume home medication. Monitor lytes and vitals. DVT and GI prophylaxis. Further recommendations of the clinical course of the patient DVT prophylaxis: Subcutaneous heparin GI Prophylaxis: Pepcid Prognosis is guarded
[2018-10-07] MEDS: KETOROLAC 30 MG/ML 1 ML VIAL IVP SCH ×4 (01:25→18:02)
[2018-10-07] MEDS: HYDROcodone/APAP 5-325MG 1 EACH TAB PO PRN (06:55)
[2018-10-07 07:04] LABS: Glucose,Whole Blood 168 mg/dL (75-99)
[2018-10-07] MEDS: INSULIN ASPART (NovoLOG) 100 UNIT/ML VIAL SQ SCH ×3 (07:51→18:03)
[2018-10-07] MEDS ORDERED: INSULIN DETEMIR (LEVEMIR) 100 UNIT/ML SYR SQ SCH (09:00)
[2018-10-07] MEDS: HEPARIN SODIUM,PORCINE 5,000 UNIT/ML 1 ML VIAL SQ SCH (09:36)
[2018-10-07] MEDS: FAMOTIDINE 20 MG TAB PO SCH (09:36)
[2018-10-07] MEDS: CYCLOBENZAPRINE 5 MG TAB PO SCH ×2 (09:37→16:15)
[2018-10-07 09:39] VITALS: RESP 16
[2018-10-07 12:17] LABS: Glucose,Whole Blood 252 mg/dL (75-99)
[2018-10-07 17:56] LABS: Glucose,Whole Blood 230 mg/dL (75-99)
[2018-10-07 18:54] VITALS: BP 149/106; PULSE 102; TEMP 98.4
[2018-10-08 09:25] LABS: Hemoglobin A1C 13.7
--- NOTE | 2018-10-09 12:14 | P.DS ---
Providers Date of admission: 10/04/18 02:55 Attending physician: Calvin Sapp Consults: 10/04/18 02:53 Consult Physician Stat Consulting Provider: Shelbie Reyes Consult Reason/Comments: DKA Do you want consulting provider notified?: Already Contacted 10/06/18 10:21 Consult Physician Urgent Consulting Provider: Clem Lopez Consult Reason/Comments: shoulder injury from fall Do you want consulting provider notified?: Yes Primary care physician: Phong Cruz Hospital Course: dx Diabetic ketoacidosis, and Closed Insulin-dependent diabetes mellitus, was on insulin pump prior to admission Recurrent nausea and vomiting, resolved Injury to left ankle ligaments, status post cast of 1 month duration Mechanical fall with no dizziness Neck pain and back pain secondary to fall, improving Recent , give to 9 month years old infant. 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 Presents with nausea vomiting. Patient has a cast in her left ankle for about a month that she supposed to take it off on for a ligament injury. she presents after fall , with hurt to her right shoulder, xray were negative. pt DKA resolved and her sugar was controlled on levemir 20 U HS and 17 U daily , pt agrees to use levemir rather than insulin pump , she wants to call and follow up with her occupational therapy assistant , scripts provided for her. also orthopedic evaluated her and recommended symptomatic treatment and follow in one week if no resolution then may consider MRI of her shoulder , pt informed about this and she agrees with the appointment made for her with the ortho team. NSAIDs is provided for the pt , and possible side effect is explained for her on the day of discharge pt remains with no chest pain , no dyspnea , no abd pain or n/v, no change in urine or bowel habits pt was cleared for discharge by ortho team Pt was instructed about the problems and management plan and Pt verbalized understanding and acceptance Pt is found stable and can be discharged to the community but needs follow up as outpt.pt did not want medical staff to make appointment for her and wanted to make it herself. pt was instructed to f/u with her pcp and occupational therapy assistant in one week and she agreed Discharge exam Gen.: Patient alert awake and oriented X 3, NOT IN DISTRESS CVS: s1-s2, RRR, no murmur CHEST:bilateral CTA, no wheezing or crepitation Abdomen: Soft, no tenderness, no distention, positive bowel sounds Extremities: No leg edema or induration time spent : more than 35 min Patient Condition at Discharge: Stable Plan - Discharge Summary Discharge Rx Participant: Yes New Discharge Prescriptions: New Acetaminophen Tab [Tylenol] 500 mg PO Q6H PRN tab PRN Reason: Pain Famotidine [Pepcid] 20 mg PO Q12HR #60 tab Ibuprofen 600 mg PO Q8HR PRN 5 Days #15 tablet PRN Reason: Severe Pain Insulin Detemir (Levemir) [Levemir] 20 unit SQ HS #1 vial Cyclobenzaprine [Flexeril] 5 mg PO TID 3 Days #9 tab Insulin Detemir (Levemir) [Levemir] 17 unit SQ DAILY #1 vial Discontinued Insulin Aspart (For Pump) [NovoLOG (For Pump)] 0.01 dose SQ-PUMP CONTINUOUS Discharge Medication List Acetaminophen Tab [Tylenol] 500 mg PO Q6H PRN tab 10/07/18 [Rx] Cyclobenzaprine [Flexeril] 5 mg PO TID 3 Days #9 tab 10/07/18 [Rx] Famotidine [Pepcid] 20 mg PO Q12HR #60 tab 10/07/18 [Rx] Ibuprofen 600 mg PO Q8HR PRN 5 Days #15 tablet 10/07/18 [Rx] Insulin Detemir (Levemir) [Levemir] 17 unit SQ DAILY #1 vial 10/07/18 [Rx] Insulin Detemir (Levemir) [Levemir] 20 unit SQ HS #1 vial 10/07/18 [Rx] Follow up Appointment(s)/Referral(s): Phong Cruz MD [Primary Care Provider] - 1-2 days Clem Lopez MD [STAFF PHYSICIAN] - 10/14/18 9:45 am Activity/Diet/Wound Care/Special Instructions: CONTINUE TO MONITOR YOUR SUGARS AND MAKE AND APPT THIS WEEK TO SEE YOUR PRIMARY CARE DR AND YOUR MUSCULOSKELETAL PHYSICIAN. KEEP YOUR APPT WITH DR LOPEZ SCHEDULED AND DISCUSSED. CONTINUE WITH MUSCLE RELAXERS AND IBUPROFEN PRESCRIBED UNTIL FURTHER INSTRUCTED BY DR LOPEZ. Discharge Disposition: HOME SELF-CARE
== END 2018-10-07 19:03 | disposition home or self-care (01) | DRG 639 ==
LOC: EC 23:48 → 2SICU 10-04 02:55 → 6PED 10-04 18:46
PROVIDERS: ADMIT Hospitalist; ATTEND Hospitalist
DX: E10.10 Type 1 diabetes mellitus with ketoacidosis without coma (principal); E86.0 Dehydration; S29.012A Strain of muscle and tendon of back wall of thorax, initial encounter; S43.51XA Sprain of right acromioclavicular joint, initial encounter; G43.909 Migraine, unspecified, not intractable, without status migrainosus; K21.9 Gastro-esophageal reflux disease without esophagitis; M54.2 Cervicalgia; S99.912D Unspecified injury of left ankle, subsequent encounter; Z79.4 Long term (current) use of insulin; Z96.41 Presence of insulin pump (external) (internal); Z98.891 History of uterine scar from previous surgery; Z90.49 Acquired absence of other specified parts of digestive tract; Z88.2 Allergy status to sulfonamides; Z88.8 Allergy status to other drugs, medicaments and biological substances; Z91.040 Latex allergy status; Z91.013 Allergy to seafood; Z84.89 Family history of other specified conditions; W00.0XXA Fall on same level due to ice and snow, initial encounter
CPT/HCPCS: 36415; 70450; 71046; 72125; 80048; 80051; 80053; 81003; 81025; 82009; 82565; 82803; 82947; 83036; 83735; 84100; 84520; 85025; 85027; 85610; 85730; 93005; 96360; 96361; 96374; 99285

== ENCOUNTER 2019-03-02 13:02 | Emergency (ER) | payer OTHER ==
[2019-03-02 13:12] VITALS: RESP 18
--- NOTE | 2019-03-02 13:47 | XR ---
EXAMINATION TYPE: XR wrist complete LT DATE OF EXAM: 03/02/2019 COMPARISON: NONE HISTORY: Pain TECHNIQUE: Four views submitted. FINDINGS: The osseous structures are intact. The joint spaces are preserved and there is no acute fracture or dislocation. IMPRESSION: 1. No definite acute fracture or dislocation if symptoms persist, follow-up study in 7 to 10 days wo uld be suggested
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
[2019-03-02 14:23] VITALS: BP 137/90; PULSE 103; TEMP 98.6
== END 2019-03-02 14:24 | disposition home or self-care (01) ==
LOC: EC 13:02
DX: M25.532 Pain in left wrist (principal); E11.9 Type 2 diabetes mellitus without complications; Z79.4 Long term (current) use of insulin; Z91.013 Allergy to seafood; Z88.2 Allergy status to sulfonamides; Z88.8 Allergy status to other drugs, medicaments and biological substances; Z91.040 Latex allergy status; W01.10XA Fall on same level from slipping, tripping and stumbling with subsequent striking against unspecified object, initial encounter
CPT/HCPCS: 29125; 99283

== ENCOUNTER 2019-07-16 19:41 | Emergency (ER) | payer OTHER ==
[2019-07-16 19:46] VITALS: BP 153/90; PULSE 111; RESP 16; TEMP 97.9
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
--- NOTE | 2019-07-16 20:27 | XR ---
EXAMINATION TYPE: XR wrist complete LT DATE OF EXAM: 07/16/2019 COMPARISON: NONE HISTORY: Chronic wrist pain TECHNIQUE: 4 views FINDINGS: Carpal bones are intact. Joint spaces are fairly normal. Metacarpals are intact. There are no erosions. Joint spaces are normal. IMPRESSION: Negative left wrist exam.
[2019-07-16] MEDS ORDERED: KETOROLAC 60 MG/2 ML VIAL IM STA (20:41)
== END 2019-07-16 20:57 | disposition home or self-care (01) ==
LOC: EC 19:41
DX: M25.532 Pain in left wrist (principal); E11.9 Type 2 diabetes mellitus without complications; Z79.4 Long term (current) use of insulin; Z88.1 Allergy status to other antibiotic agents; Z88.2 Allergy status to sulfonamides; Z91.013 Allergy to seafood; Z91.048 Other nonmedicinal substance allergy status; Z88.8 Allergy status to other drugs, medicaments and biological substances
CPT/HCPCS: 29125; 96372; 99283

== ENCOUNTER 2019-09-03 18:18 | Emergency (ER) | payer OTHER ==
[2019-09-03 18:23] VITALS: RESP 20
[2019-09-03] MEDS ORDERED: ACETAMINOPHEN TAB 500 MG TAB PO STA (19:03)
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
[2019-09-03 19:48] LABS: Appearance,Urine Cloudy (Clear); Bacteria,Urine Rare /hpf; Bilirubin,Urine Negative (Negative); Blood,Urine Negative (Negative); Budding Yeast,Urine Occasional /hpf; Color,Urine Light Yellow; Glucose,Urine (UA) 4+ (Negative); Ketones,Urine Negative (Negative); Leukocyte Esterase,Urine Moderate (Negative); Mucus,Urine Rare /hpf; Nitrite,Urine Negative (Negative); Protein,Urine Trace (Negative); RBC,Urine 6 /hpf (0-5); Specific Gravity,Urine 1.016 (1.001-1.035); Squamous Epithelial Cell,Urine 17 /hpf (0-4); Urobilinogen,Urine <2.0 mg/dL (<2.0); WBC,Urine 10 /hpf (0-5)
[2019-09-03 20:06] LABS: Glucose,Whole Blood 267 mg/dL (75-99)
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
[2019-09-03] MEDS ORDERED: KETOROLAC 30 MG/ML 1 ML VIAL IM STA (20:27)
[2019-09-03 20:46] VITALS: BP 133/75; PULSE 74; TEMP 97.7
== END 2019-09-03 20:46 | disposition home or self-care (01) ==
LOC: EC 18:18
DX: S06.0X0A Concussion without loss of consciousness, initial encounter (principal); J32.9 Chronic sinusitis, unspecified; E10.9 Type 1 diabetes mellitus without complications; Z79.4 Long term (current) use of insulin; Z91.013 Allergy to seafood; Z88.2 Allergy status to sulfonamides; Z88.8 Allergy status to other drugs, medicaments and biological substances; Z91.040 Latex allergy status; W01.198A Fall on same level from slipping, tripping and stumbling with subsequent striking against other object, initial encounter; Y92.009 Unspecified place in unspecified non-institutional (private) residence as the place of occurrence of the external cause
CPT/HCPCS: 36415; 81001; 81025; 87502; 70450; 99284; 96372; J1885

== ENCOUNTER 2022-05-21 15:54 | Emergency (ER) | payer OTHER ==
[2022-05-21 16:05] VITALS: BP 153/85; PULSE 119; RESP 18; TEMP 98.3
[2022-05-21] MEDS ORDERED: ceFAZolin 1,000 MG VIAL (IM USE) IM STA (16:24)
--- NOTE | 2022-05-21 16:35 | ED ---
ENT HPI - General Chief complaint: Dental/Oral Stated complaint: Dental issues Time Seen by Provider: 05/21/22 16:13 Source: patient Mode of arrival: ambulatory Limitations: no limitations - History of Present Illness Initial comments: This 27-year-old female presented with the complaint of some right facial swelling. This has been present for one day. She states that it was much worse upon waking this morning. She has pain to her right cheek. She states that she has had 2 bad teeth in her right lower molar region for 2 years but has not had them taken care of by a dentist. She denies any fevers or chills. The pain is mild to moderate in nature. She denies any possibility of . She has not taken any antibiotics as of yet. She has no other complaints or modifying factors. - Related Data Home Medications Medication Instructions Recorded Confirmed Insulin Lispro [Admelog] 0.01 units SQ-PUMP CONTINUOUS 03/02/19 03/02/19 Previous Rx's Medication Instructions Recorded Ibuprofen [Motrin] 600 mg PO Q6HR PRN #20 tab 07/16/19 Doxycycline [Vibramycin] 100 mg PO BID #14 cap 09/03/19 Amoxicillin 500 mg PO Q8H #30 capsule 05/21/22 Allergies Allergy/AdvReac Type Severity Reaction Status Date / Time Fish Containing Products Allergy Unknown Rash/Hives, Verified 05/21/22 16:05 Swelling sulfamethoxazole Allergy Unknown Swelling, Verified 05/21/22 16:05 [From Bactrim] Nausea & Vomiting trimethoprim [From Bactrim] Allergy Unknown Swelling, Verified 05/21/22 16:05 Nausea & Vomiting insulin glargine, human AdvReac Unknown Burning Verified 05/21/22 16:05 recombin. a Sensation [From Lantus] Throughout latex AdvReac Unknown PT HAS Verified 05/21/22 16:05 STRONG FAMILY HX OF LATEX ALLERGY. Review of Systems ROS Statement: Those systems with pertinent positive or pertinent negative responses have been documented in the HPI. ROS Other: All systems not noted in ROS Statement are negative. Past Medical History Past Medical History: Diabetes Mellitus, GERD/Reflux Additional Past Medical History / Comment(s): INSULIN PUMP. pre-eclampsia with History of Any Multi-Drug Resistant Organisms: None Reported Past Surgical History: Breast Surgery, Section, Cholecystectomy Additional Past Surgical History / Comment(s): left breast surgery related to mastitis Past Anesthesia/Blood Transfusion Reactions: No Reported Reaction Additional Past Anesthesia/Blood Transfusion Reaction / Comment(s): PT HAS NEVER RECEIVED ANESTHESIA. Past Psychological History: No Psychological Hx Reported Smoking Status: Never smoker Past Alcohol Use History: None Reported Past Drug Use History: None Reported - Past Family History Mother Family Medical History: No Reported History Additional Family Medical History / Comment(s): Arthrisits, General Exam Limitations: no limitations General appearance: alert, in no apparent distress Head exam: Present: atraumatic, normocephalic Eye exam: Present: normal appearance ENT exam: Present: mucous membranes moist, other (There is right facial swelling noted in the right cheek region. There is mild tenderness but no fluctuance. Posterior oropharynx is clear. The floor of mouth is normal. There is 2 significant dental caries on tooth #31 and #30. There is no intraoral abscess that is drainable. Airway is patent.) Neck exam: Present: normal inspection. Absent: tenderness, meningismus Psychiatric exam: Present: normal affect, normal mood Skin exam: Present: intact. Absent: rash Course Vital Signs 05/21/22 16:03 Temperature 98.3 F Pulse Rate 119 H Respiratory 18 Rate Blood Pressure 153/85 O2 Sat by Pulse 98 Oximetry Medical Decision Making - Medical Decision Making The patient was seen and examined. There is some moderate right facial swelling identified. There is no significant trismus noted. This felt as though she is a dental abscess and would benefit from antibiotic treatment. Due to the significance of facial swelling, it is felt as though she would benefit from IM injection. She receives Ancef 1 g IM. She will be discharged on amoxicillin. Motrin and Tylenol are recommended. Close dental follow-up recommended. Return parameters are discussed. Disposition Clinical Impression: Dental abscess, Facial swelling, Temporomandibular joint disorder Disposition: HOME SELF-CARE Condition: Good Instructions (If sedation given, give patient instructions): Dental Abscess (ED) Additional Instructions: Please follow-up with a dentist as soon as possible. Please take, and/or Motrin as needed for pain or fever. Please return if her symptoms worsen. Prescriptions: Amoxicillin 500 mg PO Q8H #30 capsule Is patient prescribed a controlled substance at d/c from ED?: No Referrals: Nonstaff,Physician [Primary Care Provider] - 1-2 days Time of Disposition: 16:35
== END 2022-05-21 16:42 | disposition home or self-care (01) ==
LOC: EC 15:54
DX: K04.7 Periapical abscess without sinus (principal); M26.601 Right temporomandibular joint disorder, unspecified; E11.9 Type 2 diabetes mellitus without complications; K21.9 Gastro-esophageal reflux disease without esophagitis; Z79.4 Long term (current) use of insulin; Z91.013 Allergy to seafood; Z88.2 Allergy status to sulfonamides; Z90.49 Acquired absence of other specified parts of digestive tract; Z88.1 Allergy status to other antibiotic agents; Z88.8 Allergy status to other drugs, medicaments and biological substances; Z91.040 Latex allergy status
CPT/HCPCS: 96372; 99283; J0690

== ENCOUNTER 2022-10-26 13:02 | Emergency (ER) | payer OTHER ==
[2022-10-26] MEDS ORDERED: KETOROLAC 15 MG/ML 1 ML VIAL IVP STA (13:20)
[2022-10-26 13:27] VITALS: RESP 18
--- NOTE | 2022-10-26 13:38 | ED ---
General Adult HPI - General Chief complaint: Fall Stated complaint: R sided rib pain Time Seen by Provider: 10/26/22 13:14 Source: patient, RN notes reviewed Mode of arrival: ambulatory Limitations: no limitations - History of Present Illness Initial comments: 27-year-old female with a past medical history of diabetes type 1 who presents to the emergency department with right rib pain. She reports that yesterday she on ice and fell onto her right ribs. She reports that she landed on cement steps. She denies hitting her head, loss of consciousness, any anticoagulant use. She does report that it's hard to take in a deep breath. She is not taken anything for her symptoms. She denies any dizziness, lightheadedness, headache, vision changes, numbness, tingling, weakness. - Related Data Home Medications Medication Instructions Recorded Confirmed Acetaminophen Tab [Tylenol Tab] 1,000 mg PO Q6HR PRN 10/26/22 10/26/22 DULoxetine HCL [Cymbalta] 30 mg PO DAILY 10/26/22 10/26/22 INSULIN LISPRO (HumaLOG) [humaLOG] See Protocol SQ ACHS PRN 10/26/22 10/26/22 Ibuprofen [Motrin] 800 mg PO Q8H PRN 10/26/22 10/26/22 Losartan Potassium 50 mg PO DAILY 10/26/22 10/26/22 Pregabalin [Lyrica] 100 mg PO BID 10/26/22 10/26/22 Allergies Allergy/AdvReac Type Severity Reaction Status Date / Time Fish Containing Products Allergy Unknown Rash/Hives, Verified 10/26/22 17:21 Swelling sulfamethoxazole Allergy Unknown Swelling, Verified 10/26/22 17:21 [From Bactrim] Nausea & Vomiting trimethoprim [From Bactrim] Allergy Unknown Swelling, Verified 10/26/22 17:21 Nausea & Vomiting insulin glargine, human AdvReac Unknown Burning Verified 10/26/22 17:21 recombin. a Sensation [From Lantus] Throughout latex AdvReac Unknown PT HAS Verified 10/26/22 17:21 STRONG FAMILY HX OF LATEX ALLERGY. Review of Systems ROS Statement: Those systems with pertinent positive or pertinent negative responses have been documented in the HPI. ROS Other: All systems not noted in ROS Statement are negative. Past Medical History Past Medical History: Diabetes Mellitus, GERD/Reflux Additional Past Medical History / Comment(s): INSULIN PUMP. pre-eclampsia with History of Any Multi-Drug Resistant Organisms: None Reported Past Surgical History: Breast Surgery, Section, Cholecystectomy Additional Past Surgical History / Comment(s): left breast surgery related to mastitis Past Anesthesia/Blood Transfusion Reactions: No Reported Reaction Additional Past Anesthesia/Blood Transfusion Reaction / Comment(s): PT HAS NEVER RECEIVED ANESTHESIA. Past Psychological History: No Psychological Hx Reported Smoking Status: Never smoker Past Alcohol Use History: None Reported Past Drug Use History: None Reported - Past Family History Mother Family Medical History: No Reported History Additional Family Medical History / Comment(s): Arthrisits, General Exam Limitations: no limitations General appearance: alert, in no apparent distress Head exam: Present: atraumatic, normocephalic, normal inspection Eye exam: Present: normal appearance, PERRL, EOMI. Absent: scleral icterus, conjunctival injection, periorbital swelling ENT exam: Present: normal exam, mucous membranes moist Neck exam: Present: normal inspection. Absent: tenderness, meningismus, lymphadenopathy Respiratory exam: Present: normal lung sounds bilaterally. Absent: respiratory distress, wheezes, rales, rhonchi, stridor Cardiovascular Exam: Present: regular rate, normal rhythm, normal heart sounds. Absent: systolic murmur, diastolic murmur, rubs, gallop, clicks GI/Abdominal exam: Present: soft, normal bowel sounds. Absent: distended, tenderness, guarding, rebound, rigid Extremities exam: Present: normal inspection, full ROM, normal capillary refill. Absent: tenderness, pedal edema, joint swelling, calf tenderness Back exam: Present: normal inspection Neurological exam: Present: alert, oriented X3, CN II-XII intact Psychiatric exam: Present: normal affect, normal mood Skin exam: Present: warm, dry, intact, normal color. Absent: rash Course Vital Signs 10/26/22 10/26/22 10/26/22 13:09 13:25 15:01 Temperature 98 F Pulse Rate 110 H 113 H Respiratory 22 18 Rate Blood Pressure 167/91 192/100 184/101 O2 Sat by Pulse 100 99 Oximetry 10/26/22 17:24 Temperature 98.0 F Pulse Rate 107 H Respiratory 18 Rate Blood Pressure 172/107 O2 Sat by Pulse 99 Oximetry Medical Decision Making - Medical Decision Making Was pt. sent in by a medical professional or institution (YECENIA Hutchins, FAMILY DAY CARE WORKER, urgent care, hospital, or group home...) When possible be specific @ -[No] Did you speak to anyone other than the patient for history (EMS, parent, family, police, friend...)? What history was obtained from this source @ -[No] Did you review nursing and triage notes (agree or disagree)? Why? @ -[I reviewed and agree with nursing and triage notes] Were old charts reviewed (outside hosp., previous admission, EMS record, old EKG, old radiological studies, urgent care reports/EKG's, group home records)? Report findings @ -[No old charts were reviewed] Differential Diagnosis (chest pain, altered mental status, abdominal pain women, abdominal pain men, vaginal bleeding, weakness, fever, dyspnea, syncope, headac he, dizziness, GI bleed, back pain, seizure, CVA, palpatations, mental health, musculoskeletal)? @ -[not applicable] EKG interpreted by me (3pts min.). @ -[As above] X-rays interpreted by me (1pt min.). @ -X-ray of right ribs negative for any evidence of acute fracture CT interpreted by me (1pt min.). @ -HTN abdomen and pelvis without any acute intra-abdominal process U/S interpreted by me (1pt. min.). @ -[None done] What testing was considered but not performed or refused? (CT, X-rays, U/S, labs)? Why? @ -[None] What meds were considered but not given or refused? Why? @ -[None] Did you discuss the management of the patient with other professionals (professionals i.e. YECENIA Hutchins, FAMILY DAY CARE WORKER, lab, RT, psych nurse, social media sr strategy manager, senior property accountant, teacher, police officer, tax accounting manager)? Give summary @ -[No] Was smoking cessation discussed for >3mins.? @ -[No] Was critical care preformed (if so, how long)? @ -[No] Were there social determinants of health that impacted care today? How? (Homelessness, low income, unemployed, alcoholism, drug addiction, transportation, low edu. Level, literacy, decrease access to med. care, fci, rehab)? @ -[No] Was there de-escalation of care discussed even if they declined (Discuss DNR or withdrawal of care, Hospice)? DNR status @ -[No] What co-morbidities impacted this encounter? (DM, HTN, Smoking, COPD, CAD, Ca ncer, CVA, ARF, Chemo, Hep., AIDS, mental health diagnosis, sleep apnea, morbid obesity)? @ -[None] Was patient admitted / discharged? Hospital course, mention meds given and route, prescriptions, significant lab abnormalities, going to OR and other pertinent info. @ -Discharged. This is a 27 -year-old female who presents to the emergency department the chief complaint of rib pain. Patient had a thorough history and physical performed on the ED. Physical exam is essentially unremarkable heart rate regular rate and rhythm, lungs clear to auscultation bilaterally abdomen soft and nontender. There are no focal deficits noted. Patient remained stable while in the ED. Patient had lab work and imaging performed workup reveals: She was given toradol, morphine and 1 L of IV fluids with symptomatic relief. Discussed the results in detail with the patient who verbalized understanding and all questions were addressed. The patient was discharged in stable condition and return precautions were discussed. She was recommended PCP in 1-2 days. Case discussed with CINDY Gibson who agrees with plan of care. Undiagnosed new problem with uncertain prognosis? @ -[No] Drug Therapy requiring intensive monitoring for toxicity (Heparin, Nitro, Insulin, Cardizem)? @ -[No] Were any procedures done? @ -[No] Diagnosis/symptom? @ -R rib pain Acute, or Chronic, or Acute on Chronic? @ -acute Uncomplicated (without systemic symptoms) or Complicated (systemic symptoms)? @ -uncomplicated Side effects of treatment? @ -[No] Exacerbation, Progression, or Severe Exacerbation? @ -[No] Poses a threat to life or bodily function? How? (Chest pain, USA, MA, pneumonia, PE, COPD, DKA, ARF, appy, cholecystitis, CVA, Diverticulitis, Homicidal, Suicidal, threat to staff... and all critical care pts) @ -low likelihood - Lab Data Result diagrams: 10/26/22 15:25 10/26/22 16:09 Lab Results 10/26/22 10/26/22 10/26/22 Range/Units 15:25 15:25 16:09 WBC 7.7 (3.8-10.6) k/uL RBC 4.07 (3.80-5.40) m/uL Hgb 11.5 (11.4-16.0) gm/dL Hct 34.6 (34.0-46.0) % MCV 85.1 (80.0-100.0) fL MCH 28.3 (25.0-35.0) pg MCHC 33.3 (31.0-37.0) g/dL RDW 12.9 (11.5-15.5) % Plt Count 275 (150-450) k/uL MPV 8.3 Neutrophils % 66 % Lymphocytes % 25 % Monocytes % 3 % Eosinophils % 3 % Basophils % 1 % Neutrophils # 5.1 (1.3-7.7) k/uL Lymphocytes # 1.9 (1.0-4.8) k/uL Monocytes # 0.3 (0-1.0) k/uL Eosinophils # 0.2 (0-0.7) k/uL Basophils # 0.1 (0-0.2) k/uL Sodium 131 L (137-145) mmol/L Potassium 6.5 H* 4.6 (3.5-5.1) mmol/L Chloride 103 (98-107) mmol/L Carbon Dioxide 20 L (22-30) mmol/L Anion Gap 8 mmol/L BUN 23 H (7-17) mg/dL Creatinine 0.90 (0.52-1.04) mg/dL Est GFR (CKD-EPI)AfAm >90 (>60 ml/min/1.73 sqM) Est GFR (CKD-EPI)NonAf 87 (>60 ml/min/1.73 sqM) Glucose 491 H (74-99) mg/dL Calcium 8.3 L (8.4-10.2) mg/dL Total Bilirubin 0.8 (0.2-1.3) mg/dL AST 31 (14-36) U/L ALT 22 (4-34) U/L Alkaline Phosphatase 166 H (38-126) U/L Total Protein 6.6 (6.3-8.2) g/dL Albumin 3.4 L (3.5-5.0) g/dL Lipase 148 (23-300) U/L Disposition Clinical Impression: Fall, Rib pain Disposition: HOME SELF-CARE Condition: Stable Instructions (If sedation given, give patient instructions): Costochondritis (ED) Additional Instructions: Return to the nearest emergency department if symptoms worsen or persist Is patient prescribed a controlled substance at d/c from ED?: No Referrals: None,Stated [Primary Care Provider] - 1-2 days Time of Disposition: 17:16
--- NOTE | 2022-10-26 14:58 | XR ---
EXAMINATION TYPE: XR ribs RT DATE OF EXAM: 10/26/2022 COMPARISON: NONE HISTORY: Pain TECHNIQUE: 4 views submitted FINDINGS: Lungs are clear with no sizable pneumothorax. No definite acute displaced rib fracture. IMPRESSION: No definite acute displaced rib fracture.
[2022-10-26] MEDS ORDERED: MORPHINE SULFATE 2 MG/ML SYRINGE IVP ONE (15:08)
[2022-10-26 15:39] LABS: Basophils # (A) 0.1 k/uL (0-0.2); Basophils % (A) 1 %; Eosinophils # (A) 0.2 k/uL (0-0.7); Eosinophils % (A) 3 %; HCT 34.6 % (34.0-46.0); HGB 11.5 gm/dL (11.4-16.0); Lymphocytes # (A) 1.9 k/uL (1.0-4.8); Lymphocytes % (A) 25 %; MCH 28.3 pg (25.0-35.0); MCHC 33.3 g/dL (31.0-37.0); MCV 85.1 fL (80.0-100.0); Mean Platelet Volume 8.3; Monocytes # (A) 0.3 k/uL (0-1.0); Monocytes % (A) 3 %; Neutrophils # (A) 5.1 k/uL (1.3-7.7); Neutrophils % (A) 66 %; Platelet Count 275 k/uL (150-450); RBC 4.07 m/uL (3.80-5.40); RDW 12.9 % (11.5-15.5); WBC 7.7 k/uL (3.8-10.6)
[2022-10-26 15:46] LABS: ALT 22 U/L (4-34); AST 31 U/L (14-36); African American GFR (CKD) >90 (>60 ml/min/1.73 sqM); Albumin 3.4 g/dL (3.5-5.0); Alkaline Phosphatase 166 U/L (38-126); Blood Urea Nitrogen 23 mg/dL (7-17); Calcium 8.3 mg/dL (8.4-10.2); Carbon Dioxide 20 mmol/L (22-30); Glucose 491 mg/dL (74-99); Lipase 148 U/L (23-300); Non-African American GFR(CKD) 87 (>60 ml/min/1.73 sqM); Total Bilirubin 0.8 mg/dL (0.2-1.3); Total Protein 6.6 g/dL (6.3-8.2)
[2022-10-26 16:00] LABS: Anion Gap 8 mmol/L; Chloride 103 mmol/L (98-107); Sodium 131 mmol/L (137-145)
[2022-10-26 16:02] LABS: Potassium 6.5 mmol/L (3.5-5.1)
[2022-10-26] MEDS ORDERED: SODIUM CHLORIDE 0.9% 1,000 ML IV ONE (16:08)
--- NOTE | 2022-10-26 16:36 | CT ---
EXAMINATION TYPE: CT abdomen pelvis w con DATE OF EXAM: 10/26/2022 COMPARISON: 05/31/2016 HISTORY: RUQ pain, fall CT DLP: 832.3 mGycm Automated exposure control for dose reduction was used. TECHNIQUE: Helical acquisition of images was performed from the lung bases through the pelvis. CONTRAST: Performed without Oral Contrast and with IV Contrast, patient injected with 100 mL of Isovue 300. FINDINGS: The lung bases are clear. There are surgical absence of the gallbladder. There is no biliary ductal dilatation. There is no focal mass or organomegaly involving pancreas, spleen or adrenal glands. The caliber the abdominal aorta is normal. The kidneys excrete contrast promptly and symmetrically is no solid renal mass or hydronephrosis The bowel loops are normal in caliber and there is no dilatation or obstruction. No inflammatory changes are identified in the bowel wall or mesentery and there is no free intraperit thorpe air or fluid. There is no pelvic mass, free fluid, abscess or adenopathy Abdominal wall is intact. Osseous structures are unremarkable. IMPRESSION: Cholecystectomy. No acute changes within the abdomen.
[2022-10-26 17:31] VITALS: BP 172/107; PULSE 107; TEMP 98
== END 2022-10-26 17:24 | disposition home or self-care (01) ==
LOC: EC 13:02
DX: R07.81 Pleurodynia (principal); E10.9 Type 1 diabetes mellitus without complications; K21.9 Gastro-esophageal reflux disease without esophagitis; Z79.899 Other long term (current) drug therapy; Z88.1 Allergy status to other antibiotic agents; Z88.2 Allergy status to sulfonamides; Z88.8 Allergy status to other drugs, medicaments and biological substances; Z91.013 Allergy to seafood; Z91.040 Latex allergy status; W00.0XXA Fall on same level due to ice and snow, initial encounter
CPT/HCPCS: 99284; 96374; 96375; 96361; 36415; 80053; 83690; 84132; 85025; 71100; 74177; J2270; J1885; Q9967

== ENCOUNTER 2022-11-30 16:21 | Emergency (ER) | payer OTHER ==
[2022-11-30] MEDS ORDERED: SODIUM CHLORIDE 0.9% 1,000 ML IV ONE ×2 (16:54→17:43)
[2022-11-30] MEDS ORDERED: KETOROLAC 15 MG/ML 1 ML VIAL IVP STA (16:54)
--- NOTE | 2022-11-30 16:59 | ED ---
Recheck HPI - General Source: patient Mode of arrival: ambulatory Limitations: no limitations <Marie Zhang - Last Filed: 12/01/22 02:18> <Surinder Glez - Last Filed: 12/01/22 20:16> - General Chief Complaint: Recheck/Abnormal Lab/Rx Stated Complaint: bodyaches Time Seen by Provider: 11/30/22 16:32 - History of Present Illness Initial Comments: Patient is a 27-year-old female presenting with chief complaint of pain to the left groin. Patient woke up today with significant pain near the left labia and buttock. She notices a spot of dark discoloration. There is pain with even light pressure applied. She admits to generalized body aches. No fevers or chills. Patient states that she has been vomiting today, states that she has had recurrent issues with vomiting throughout the month. No pelvic or abdominal pain. No vaginal discharge or bleeding. No dysuria or hematuria. (Marie Zhang) - Related Data Home Medications Medication Instructions Recorded Confirmed Acetaminophen Tab [Tylenol Tab] 1,000 mg PO Q6HR PRN 10/26/22 10/26/22 DULoxetine HCL [Cymbalta] 30 mg PO DAILY 10/26/22 10/26/22 INSULIN LISPRO (HumaLOG) [humaLOG] See Protocol SQ ACHS PRN 10/26/22 10/26/22 Ibuprofen [Motrin] 800 mg PO Q8H PRN 10/26/22 10/26/22 Losartan Potassium 50 mg PO DAILY 10/26/22 10/26/22 Pregabalin [Lyrica] 100 mg PO BID 10/26/22 10/26/22 Allergies Allergy/AdvReac Type Severity Reaction Status Date / Time Fish Containing Products Allergy Unknown Rash/Hives, Verified 11/30/22 16:28 Swelling sulfamethoxazole Allergy Unknown Swelling, Verified 11/30/22 16:28 [From Bactrim] Nausea & Vomiting trimethoprim [From Bactrim] Allergy Unknown Swelling, Verified 11/30/22 16:28 Nausea & Vomiting insulin glargine, human AdvReac Unknown Burning Verified 11/30/22 16:28 recombin. a Sensation [From Lantus] Throughout latex AdvReac Unknown PT HAS Verified 11/30/22 16:28 STRONG FAMILY HX OF LATEX ALLERGY. Review of Systems ROS Other: All systems not noted in ROS Statement are negative. <Marie Zhang - Last Filed: 12/01/22 02:18> ROS Other: All systems not noted in ROS Statement are negative. <Surinder Glez - Last Filed: 12/01/22 20:16> ROS Statement: Those systems with pertinent positive or pertinent negative responses have been documented in the HPI. Past Medical History Past Medical History: Diabetes Mellitus, GERD/Reflux Additional Past Medical History / Comment(s): INSULIN PUMP. pre-eclampsia with History of Any Multi-Drug Resistant Organisms: None Reported Past Surgical History: Breast Surgery, Section, Cholecystectomy Additional Past Surgical History / Comment(s): left breast surgery related to mastitis Past Anesthesia/Blood Transfusion Reactions: No Reported Reaction Additional Past Anesthesia/Blood Transfusion Reaction / Comment(s): PT HAS NEVER RECEIVED ANESTHESIA. Past Psychological History: No Psychological Hx Reported Smoking Status: Never smoker Past Alcohol Use History: None Reported Past Drug Use History: None Reported - Past Family History Mother Family Medical History: No Reported History Additional Family Medical History / Comment(s): Arthrisits, <Marie Zhang - Last Filed: 12/01/22 02:18> General Exam Limitations: no limitations General appearance: alert, anxious, in distress Head exam: Present: atraumatic, normocephalic, normal inspection Eye exam: Present: normal appearance Neck exam: Present: normal inspection, full ROM Respiratory exam: Present: normal lung sounds bilaterally. Absent: respiratory distress, wheezes, rales, rhonchi, stridor Cardiovascular Exam: Present: normal rhythm, tachycardia, normal heart sounds. Absent: systolic murmur, diastolic murmur, rubs, gallop, clicks External exam: Present: erythema, swelling Neurological exam: Present: alert, oriented X3, CN II-XII intact Psychiatric exam: Present: normal affect, normal mood Expanded Type of lesion: Present: abscess (Concerning for abscess over the left labia and buttock, erythema and induration with a central fluctuant patch of purple discoloration.) <Marie Zhang - Last Filed: 12/01/22 02:18> Course Vital Signs 11/30/22 11/30/22 16:24 18:06 Temperature 99.5 F 98.7 F Pulse Rate 132 H 128 H Respiratory 18 24 Rate Blood Pressure 97/62 133/66 O2 Sat by Pulse 100 99 Oximetry Procedures - Sepsis Sepsis Focused Exam #1 Time Sepsis Criteria Met: 17:41 <Marie Zhang - Last Filed: 12/01/22 02:18> Medical Decision Making - Lab Data Result diagrams: 11/30/22 17:01 11/30/22 17:01 <Marie Zhang - Last Filed: 12/01/22 02:18> - Lab Data Result diagrams: 11/30/22 17:01 11/30/22 17:01 <Surinder Glez - Last Filed: 12/01/22 20:16> - Medical Decision Making Patient is a 27-year-old female presenting with chief complaint of painful left sided perineum. Patient states that when she woke up today there was redness and swelling as well as some dark discoloration. On examination there is extreme tenderness as well as erythema and induration with centralized ecchymosis. Of note patient is a poorly controlled type I diabetic. WBC 17.6 lactic acid 3.2. Creatinine 3.16 and BUN 53. Glucose is 496. Potassium 5.5, anion gap 13. CT shows foci of subcutaneous gas within the left perineum. Patient is given Zosyn as well as vancomycin and clindamycin. She is given 2 L normal saline and placed on a maintenance rate of 130 mL per hour. Patient will require transfer to tertiary center. She is accepted at [facility] by Dr. Robb Nicholson. I educated the patient on her serious condition and need for transfer. She is agreeable with this plan. I discussed this case with my attending Dr. Glez. Was pt. sent in by a medical professional or institution (, PA, MANUFACTURING TECHNOLOGY ANALYST, urgent care, hospital, or shelter...) When possible be specific @ -No Did you speak to anyone other than the patient for history (EMS, parent, family, police, friend...)? What history was obtained from this source @ -No Did you review nursing and triage notes (agree or disagree)? Why? @ -I reviewed and agree with nursing and triage notes Were old charts reviewed (outside hosp., previous admission, EMS record, old EKG, old radiological studies, urgent care reports/EKG's, shelter records)? Report findings @ -No old charts were reviewed Differential Diagnosis (chest pain, altered mental status, abdominal pain women, abdominal pain men, vaginal bleeding, weakness, fever, dyspnea, syncope, headache, dizziness, GI bleed, back pain, seizure, CVA, palpatations, mental health, musculoskeletal)? @ -Differential Musculoskeletal Muscular strain, contusion, ligament sprain, fracture, arthritis, septic arthritis, bursitis, cellulitis, muscle spasm, nerve compression, DVT, arterial occlusion, herpes zoster, electrolyte abnormality, tumor.... This is not meant to be in all inclusive list EKG interpreted by me (3pts min.). @ -As above X-rays interpreted by me (1pt min.). @ -None done CT interpreted by me (1pt min.). @ -CT shows foci of subcutaneous gas within the left perineum no organized fluid collection is identified. There is left inguinal adenopathy likely reactive. There is also nondependent focus of gas within the urinary bladder U/S interpreted by me (1pt. min.). @ -None done What testing was considered but not performed or refused? (CT, X-rays, U/S, labs)? Why? @ -None What meds were considered but not given or refused? Why? @ -None Did you discuss the management of the patient with other professionals (professionals i.e. , PA, MANUFACTURING TECHNOLOGY ANALYST, lab, RT, psych nurse, marriage and family social worker, wine steward, teacher, money position officer, keycase assembler)? Give summary @ -Spoke with Dr. Nicholson from [facility] who accepted transfer Was smoking cessation discussed for >3mins.? @ -No Was critical care preformed (if so, how long)? @ -No Were there social determinants of health that impacted care today? How? (Ho melessness, low income, unemployed, alcoholism, drug addiction, transportation, low edu. Level, literacy, decrease access to med. care, mcc, rehab)? @ -No Was there de-escalation of care discussed even if they declined (Discuss DNR or withdrawal of care, Hospice)? DNR status @ -No What co-morbidities impacted this encounter? (DM, HTN, Smoking, COPD, CAD, Cancer, CVA, ARF, Chemo, Hep., AIDS, mental health diagnosis, sleep apnea, morbid obesity)? @ -Type 1 diabetes Was patient admitted / discharged? Hospital course, mention meds given and route, prescriptions, significant lab abnormalities, going to OR and other pertinent info. @ -Transferred, see above Undiagnosed new problem with uncertain prognosis? @ -No Drug Therapy requiring intensive monitoring for toxicity (Heparin, Nitro, Insulin, Cardizem)? @ -No Were any procedures done? @ -No Diagnosis/symptom? @ -Necrotizing fasciitis Acute, or Chronic, or Acute on Chronic? @ -Acute Uncomplicated (without systemic symptoms) or Complicated (systemic symptoms)? @ -Complicated Side effects of treatment? @ -No Exacerbation, Progression, or Severe Exacerbation? @ -No Poses a threat to life or bodily function? How? (Chest pain, [place], [place], pneumonia, PE, COPD, DKA, ARF, appy, cholecystitis, CVA, Diverticulitis, Homicidal, Suicidal, threat to staff... and all critical care pts) @ -Yes, sepsis -> hypoperfusion-> (Marie Zhang) Was critical care preformed (if so, how long)? @ -yes, 35 min (Surinder Glez) - Lab Data Lab Results 11/30/22 11/30/22 11/30/22 Range/Units 17:00 17:01 17:01 WBC 17.6 H (3.8-10.6) k/uL RBC 3.48 L (3.80-5.40) m/uL Hgb 9.6 L D (11.4-16.0) gm/dL Hct 31.2 L (34.0-46.0) % MCV 89.6 (80.0-100.0) fL MCH 27.5 (25.0-35.0) pg MCHC 30.7 L (31.0-37.0) g/dL RDW 12.9 (11.5-15.5) % Plt Count 303 (150-450) k/uL MPV 9.1 Neutrophils % 92 % Lymphocytes % 4 % Monocytes % 3 % Eosinophils % 1 % Basophils % 0 % Neutrophils # 16.1 H (1.3-7.7) k/uL Lymphocytes # 0.7 L (1.0-4.8) k/uL Monocytes # 0.5 (0-1.0) k/uL Eosinophils # 0.1 (0-0.7) k/uL Basophils # 0.0 (0-0.2) k/uL Hypochromasia Slight Sodium 127 L (137-145) mmol/L Potassium 5.5 H (3.5-5.1) mmol/L Chloride 97 L (98-107) mmol/L Carbon Dioxide 17 L (22-30) mmol/L Anion Gap 13 mmol/L BUN 53 H (7-17) mg/dL Creatinine 3.16 H (0.52-1.04) mg/dL Est GFR (CKD-EPI)AfAm 22 (>60 ml/min/1.73 sqM) Est GFR (CKD-EPI)NonAf 19 (>60 ml/min/1.73 sqM) Glucose 496 H (74-99) mg/dL POC Glucose (mg/dL) (70-110) mg/dL POC Glu Head Men'S Golf Coach ID Plasma Lactic Acid Mark (0.7-2.0) mmol/L Calcium 8.6 (8.4-10.2) mg/dL Total Bilirubin 1.1 (0.2-1.3) mg/dL AST 89 H (14-36) U/L ALT 117 H (4-34) U/L Alkaline Phosphatase 253 H (38-126) U/L Creatine Kinase <20 L (30-135) U/L Total Protein 5.6 L (6.3-8.2) g/dL Albumin 2.8 L (3.5-5.0) g/dL Influenza Type A (PCR) (Not Detectd) Influenza Type B (PCR) (Not Detectd) RSV (PCR) (Not Detectd) SARS-CoV-2 (PCR) (Not Detectd) 11/30/22 11/30/22 11/30/22 Range/Units 17:01 17:53 18:04 WBC (3.8-10.6) k/uL RBC (3.80-5.40) m/uL Hgb (11.4-16.0) gm/dL Hct (34.0-46.0) % MCV (80.0-100.0) fL MCH (25.0-35.0) pg MCHC (31.0-37.0) g/dL RDW (11.5-15.5) % Plt Count (150-450) k/uL MPV Neutrophils % % Lymphocytes % % Monocytes % % Eosinophils % % Basophils % % Neutrophils # (1.3-7.7) k/uL Lymphocytes # (1.0-4.8) k/uL Monocytes # (0-1.0) k/uL Eosinophils # (0-0.7) k/uL Basophils # (0-0.2) k/uL Hypochromasia Sodium (137-145) mmol/L Potassium (3.5-5.1) mmol/L Chloride (98-107) mmol/L Carbon Dioxide (22-30) mmol/L Anion Gap mmol/L BUN (7-17) mg/dL Creatinine (0.52-1.04) mg/dL Est GFR (CKD-EPI)AfAm (>60 ml/min/1.73 sqM) Est GFR (CKD-EPI)NonAf (>60 ml/min/1.73 sqM) Glucose (74-99) mg/dL POC Glucose (mg/dL) 487 H (70-110) mg/dL POC Glu Head [employer] Coach ID Zarina Sanabria Plasma Lactic Acid Mark 3.2 H* (0.7-2.0) mmol/L Calcium (8.4-10.2) mg/dL Total Bilirubin (0.2-1.3) mg/dL AST (14-36) U/L ALT (4-34) U/L Alkaline Phosphatase (38-126) U/L Creatine Kinase (30-135) U/L Total Protein (6.3-8.2) g/dL Albumin (3.5-5.0) g/dL Influenza Type A (PCR) Not Detected (Not Detectd) Influenza Type B (PCR) Not Detected (Not Detectd) RSV (PCR) Not Detected (Not Detectd) SARS-CoV-2 (PCR) Not Detected (Not Detectd) 11/30/22 Range/Units 19:18 WBC (3.8-10.6) k/uL RBC (3.80-5.40) m/uL Hgb (11.4-16.0) gm/dL Hct (34.0-46.0) % MCV (80.0-100.0) fL MCH (25.0-35.0) pg MCHC (31.0-37.0) g/dL RDW (11.5-15.5) % Plt Count (150-450) k/uL MPV Neutrophils % % Lymphocytes % % Monocytes % % Eosinophils % % Basophils % % Neutrophils # (1.3-7.7) k/uL Lymphocytes # (1.0-4.8) k/uL Monocytes # (0-1.0) k/uL Eosinophils # (0-0.7) k/uL Basophils # (0-0.2) k/uL Hypochromasia Sodium (137-145) mmol/L Potassium (3.5-5.1) mmol/L Chloride (98-107) mmol/L Carbon Dioxide (22-30) mmol/L Anion Gap mmol/L BUN (7-17) mg/dL Creatinine (0.52-1.04) mg/dL Est GFR (CKD-EPI)AfAm (>60 ml/min/1.73 sqM) Est GFR (CKD-EPI)NonAf (>60 ml/min/1.73 sqM) Glucose (74-99) mg/dL POC Glucose (mg/dL) 362 H (70-110) mg/dL POC Glu Head [employer] Coach Cele Rivera Plasma Lactic Acid Mark (0.7-2.0) mmol/L Calcium (8.4-10.2) mg/dL Total Bilirubin (0.2-1.3) mg/dL AST (14-36) U/L ALT (4-34) U/L Alkaline Phosphatase (38-126) U/L Creatine Kinase (30-135) U/L Total Protein (6.3-8.2) g/dL Albumin (3.5-5.0) g/dL Influenza Type A (PCR) (Not Detectd) Influenza Type B (PCR) (Not Detectd) RSV (PCR) (Not Detectd) SARS-CoV-2 (PCR) (Not Detectd) Critical Care Time Critical Care Time: Yes Total Critical Care Time: 35 <Surinder Glez - Last Filed: 12/01/22 20:16> Critical Care Time: Upon my evaluation, this patient had a high probability of imminent or life- threatening deterioration due to sepsis, necrotizing fasciitis versus Madhuri's gangrene, patient transfer which required my direct attention, intervention, and personal management. I have personally provided 35 minutes of critical care time exclusive of time spent on separately billable procedures. Time includes review of laboratory data, radiology results, discussion with consultants, and monitoring for potential decompensation. Interventions were performed as documented in my note. (Surinder Glez) Disposition Time of Disposition: 19:57 - Out of Hospital Transfer - Req. Specs Out of Hospital Transfer - Requested Specifics: Other Emergency Center ([facility]) <Marie Zhang - Last Filed: 12/01/22 02:18> <Surinder Glez - Last Filed: 12/01/22 20:16> Clinical Impression: Necrotizing fasciitis, YUNIER (acute kidney injury) Disposition: OTHER INSTITUTION NOT DEFINED Condition: Serious Referrals: None,Stated [Primary Care Provider] - 1-2 days
[2022-11-30 17:17] LABS: Basophils % (A) 0 %; Eosinophils # (A) 0.1 k/uL (0-0.7); Eosinophils % (A) 1 %; HCT 31.2 % (34.0-46.0); Hypochromasia Slight; Lymphocytes # (A) 0.7 k/uL (1.0-4.8); Lymphocytes % (A) 4 %; MCH 27.5 pg (25.0-35.0); MCHC 30.7 g/dL (31.0-37.0); MCV 89.6 fL (80.0-100.0); Mean Platelet Volume 9.1; Monocytes # (A) 0.5 k/uL (0-1.0); Monocytes % (A) 3 %; Neutrophils # (A) 16.1 k/uL (1.3-7.7); Neutrophils % (A) 92 %; Platelet Count 303 k/uL (150-450); RBC 3.48 m/uL (3.80-5.40); RDW 12.9 % (11.5-15.5); WBC 17.6 k/uL (3.8-10.6)
[2022-11-30 17:24] LABS: HGB 9.6 gm/dL (11.4-16.0)
[2022-11-30 17:26] LABS: Albumin 2.8 g/dL (3.5-5.0); Calcium 8.6 mg/dL (8.4-10.2); Potassium 5.5 mmol/L (3.5-5.1); Total Bilirubin 1.1 mg/dL (0.2-1.3); Total Protein 5.6 g/dL (6.3-8.2)
[2022-11-30] MEDS ORDERED: INSULIN REGULAR 100 UNIT/ML VIAL (IV) IV ONE (17:30)
[2022-11-30] MEDS ORDERED: PIPERACILLIN-TAZOBACTAM 3.375 GM in SODIUM CHLORIDE 0.9% 100 ML IVPB STA (17:40)
[2022-11-30] MEDS ORDERED: SODIUM CHLORIDE 0.9% 1,000 ML IV SCH (17:45)
[2022-11-30 17:55] LABS: Glucose,Whole Blood 487 mg/dL (70-110)
[2022-11-30 18:13] VITALS: BP 133/66; PULSE 128; RESP 24; TEMP 98.7
[2022-11-30] MEDS ORDERED: VANCOMYCIN IV PER PHARMACY 1 EACH MISC MISCELLANE PRN (18:21)
--- NOTE | 2022-11-30 19:10 | CT ---
EXAMINATION TYPE: CT abdomen pelvis wo con CT DLP: 572.2 mGycm, Automated exposure control for dose reduction was used. DATE OF EXAM: 11/30/2022 6:58 PM COMPARISON: CT abdomen pelvis most recent from 10/26/2022. CLINICAL INDICATION:Female, 27 years old with history of infection, r/o necrotizing fasciitis; pin an d infection TECHNIQUE: Standard CT of the abdomen and pelvis without IV or oral contrast. Lack of IV or oral co ntrast limits evaluation of solid and hollow organ viscera. Coronal and sagittal reformats were perfo rmed. FINDINGS: LOWER CHEST: Unremarkable ABDOMEN LIVER: Unremarkable noncontrast appearance. GALLBLADDER AND BILE DUCTS: The gallbladder is surgically absent. PANCREAS: Unremarkable noncontrast appearance. SPLEEN: Unremarkable noncontrast appearance. ADRENAL GLANDS: Unremarkable noncontrast appearance. KIDNEYS AND URETERS: No evidence of hydronephrosis or renal calculus. PELVIS BLADDER: Nondependent focus of gas within the mildly distended urinary bladder. REPRODUCTIVE: Unremarkable. ABDOMEN & PELVIS STOMACH AND BOWEL: Stomach and duodenum are unremarkable focal wall thickening or surrounding inflamm atory changes. The appendix is within normal limits. No evidence of bowel obstruction. PERITONEUM: No evidence of pneumoperitoneum or free fluid. Mesenteric edema. VASCULATURE: No evidence of aortic aneurysm. MUSCULOSKELETAL: No acute osseous abnormalities LYMPH NODES: Left inguinal adenopathy with lymph nodes measuring up to 1.2 cm short axis. SOFT TISSUE/ABDOMINAL WALL: There is foci of subcutaneous gas within the left peroneal soft tissues ( series 21, image 107). No organized fluid collection. Diffuse anasarca. IMPRESSION: 1. Foci of subcutaneous gas within the left perineum. No organized fluid collection identified. This raises concern for possible necrotizing infection. Clinical correlation and surgery consult is recomm ended. 2. Left inguinal adenopathy likely reactive to #1. 3. Nondependent focus of gas within urinary bladder. This can be seen with cystitis versus prior inst rumentation. Clinical correlation is recommended with consideration for urinalysis. Findings called to and discussed with MAMADOU Stern at 7:07 PM on 11/30/2022.
[2022-11-30] MEDS ORDERED: CLINDAMYCIN 900 MG in DEXTROSE 5% IN WATER 50 ML IVPB STA ×2 (19:14)
[2022-11-30] MEDS ORDERED: MORPHINE SULFATE 4 MG/ML SYRINGE IVP STA ×2 (19:14→20:09)
[2022-11-30 19:21] LABS: Glucose,Whole Blood 362 mg/dL (70-110)
== END 2022-11-30 20:40 | disposition other institution (70) ==
LOC: EC 16:21
DX: M72.6 Necrotizing fasciitis (principal); N17.9 Acute kidney failure, unspecified; E11.9 Type 2 diabetes mellitus without complications; Z79.4 Long term (current) use of insulin; Z88.2 Allergy status to sulfonamides; Z88.6 Allergy status to analgesic agent; Z91.013 Allergy to seafood; Z91.040 Latex allergy status; Z88.8 Allergy status to other drugs, medicaments and biological substances; Z20.822 Contact with and (suspected) exposure to COVID-19; Z88.1 Allergy status to other antibiotic agents
CPT/HCPCS: 36415; 93005; 80053; 82550; 83605; 85025; 87040; 87636; 74176; 99285; 96365; 96375 ×2; 96361 ×2; J2543; J2270; J1885